=== PATIENT | male | born 1955 | race Caucasian/White ===

== ENCOUNTER 2021-02-06 16:08 | Inpatient (IN) | payer MEDICARE ==
[~2021-02-06] VITALS: Ht 182.9 cm; Wt 97.1 kg
[2021-02-06] VITALS (9 sets, daily range): BP systolic 75–97; BP diastolic 40–59
[~2021-02-06 16:08] MED LIST: ACET325T9 PO; ALLO100T PO; ATEN50TA PO; CETI10TA16 PO; CLOP75TA PO; DIVA-53 PO; DOCU100C28 PO; DORZ10DR21 EACHEYE; FLUO10CA13 PO; FURO20TA3 PO; FUROSEMIDE; IBUP400T99 PO; IPRA3AMP29 NEB; LATA7.5D OP; LEVO100T5 PO; MAGN400O7 PO; METO2.5T PO; NYST15CR TP; OLAN10TA69 PO; PALI234D IM; POLY17PO29 PO; POTA-121 PO; POTA10TA12 PO; SIMV20TA18 PO; SPIR25TA5 PO; [UNRECOGNIZED DRUG - CODE] MC; [UNRECOGNIZED DRUG - OTHER] PO; cholecalciferol PO; zinc PO
[2021-02-06] MEDS ORDERED: IV NORMAL SALINE 500ML BAG 500 ML IV ONE (16:15)
--- NOTE | 2021-02-06 16:16 | ED.ADGEN ---
Past Medical History Past Medical History: CHF, COPD, Depression, Hypothyroid, Schizophrenia Additional Past Medical Histor: COVID, LEFT LOWER LEG ULCER Past Surgical History: No Surgical History Smoking Status: Unknown if ever smoked Alcohol Use: Occasionally General Adult HPI: HPI: Patient is a 65 year old male brought in by nursing facility via EMS for altered mental status. About 6 hours prior to arrival staff told EMS that they noticed slurred speech and were going to "monitor him". Patient stated that he had sustained a little more confused starting yesterday. No other symptoms, denies any pain. Has a history of CHF and COPD. Review of Systems: Review of Systems: All other systems within normal limits except for as noted in the HPI Current Medications: Current Medications Medications (Trade) Dose Ordered Sig/Dread Start Time Stop Time Status Last Admin Dose Admin Sodium Chloride 1,000 ml @ 1,000 mls/hr 1X ONCE 02/06/21 17:15 02/06/21 18:14 DC 02/06/21 17:10 1,000 MLS/HR Allergies: Allergies: Allergies Coded Allergies Type Severity Reaction Last Updated Verified animal dander Allergy Intermediate 04/12/20 Yes haloperidol Allergy Intermediate 04/12/20 Yes Physical Exam: PE: Constitutional: Well developed, well nourished, no acute distress, non-toxic appearance. [] HENT: Normocephalic, atraumatic, bilateral external ears normal, nose normal. [] Eyes: PERRLA, conjunctiva normal, no discharge. [] Neck: No rigidity, supple, no stridor. [] Cardiovascular: Regular rate and rhythm, brisk cap refill [] Lungs & Thorax: Non labored symmetric respirations, no tachypnea or respiratory distress [] Abdomen: Soft, soft but mild Skin: Warm, dry, no erythema, no rash. [] Back: Unremarkable Extremities: No deformities, range of motion grossly intact, no lower extremity edema [] Neurologic: Alert and in response to questions but with family per slurred speech, no focal deficits noted. [] Psychologic: Affect normal, judgement normal, mood normal. [] Current Patient Data: Labs: Laboratory Tests Test 02/06/21 16:27 02/06/21 16:40 02/06/21 17:02 White Blood Count 8.9 x10^3/uL (4.0-11.0) Red Blood Count 3.55 x10^6/uL (4.30-5.70) L Hemoglobin 11.9 g/dL (13.0-17.5) L Hematocrit 35.5 % (39.0-53.0) L Mean Corpuscular Volume 100 fL (79-100) Mean Corpuscular Hemoglobin 34 pg (25-35) Mean Corpuscular Hemoglobin Concent 34 g/dL (31-37) Red Cell Distribution Width 14.6 % (11.5-14.5) H Platelet Count 220 x10^3/uL (140-400) Neutrophils (%) (Auto) 75 % (31-73) H Lymphocytes (%) (Auto) 11 % (24-48) L Monocytes (%) (Auto) 12 % (0-9) H Eosinophils (%) (Auto) 1 % (0-3) Basophils (%) (Auto) 0 % (0-3) Neutrophils # (Auto) 6.7 x10^3/uL (1.8-7.7) Lymphocytes # (Auto) 1.0 x10^3/uL (1.0-4.8) Monocytes # (Auto) 1.1 x10^3/uL (0.0-1.1) Eosinophils # (Auto) 0.1 x10^3/uL (0.0-0.7) Basophils # (Auto) 0.0 x10^3/uL (0.0-0.2) Sodium Level 138 mmol/L (136-145) Potassium Level 3.9 mmol/L (3.5-5.1) Chloride Level 95 mmol/L (98-107) L Carbon Dioxide Level 37 mmol/L (21-32) H Anion Gap 6 (6-14) Blood Urea Nitrogen 39 mg/dL (8-26) H Creatinine 2.5 mg/dL (0.7-1.3) H Estimated GFR (Cockcroft-Gault) 26.1 BUN/Creatinine Ratio 16 (6-20) Glucose Level 121 mg/dL (70-99) H Lactic Acid Level 2.8 mmol/L (0.4-2.0) H Calcium Level 9.3 mg/dL (8.5-10.1) Phosphorus Level 5.2 mg/dL (2.6-4.7) H Magnesium Level 1.7 mg/dL (1.8-2.4) L Total Bilirubin 0.3 mg/dL (0.2-1.0) Aspartate Amino Transferase (AST) 18 U/L (15-37) Alanine Aminotransferase (ALT) 18 U/L (16-63) Alkaline Phosphatase 63 U/L (46-116) Troponin I Quantitative < 0.017 ng/mL (0.000-0.055) EG-Ekf-D-Type Natriuretic Peptide 170 pg/mL (0-124) H Total Protein 7.0 g/dL (6.4-8.2) Albumin 2.9 g/dL (3.4-5.0) L Albumin/Globulin Ratio 0.7 (1.0-1.7) L SARS-CoV-2 Antigen (Rapid) Negative (NEGATIVE) Urine Collection Type Unknown Urine Color Yellow Urine Clarity Clear Urine pH 6.5 (<5.0-8.0) Urine Specific Man 1.010 (1.000-1.030) Urine Protein Negative mg/dL (NEG-TRACE) Urine Glucose (UA) Negative mg/dL (NEG) Urine Ketones (Stick) Negative mg/dL (NEG) Urine Blood Trace (NEG) Urine Nitrite Negative (NEG) Urine Bilirubin Negative (NEG) Urine Urobilinogen Dipstick 1.0 mg/dL (0.2 mg/dL) Urine Leukocyte Esterase Negative (NEG) Urine RBC 3-5 /HPF (0-2) Urine WBC 5-10 /HPF (0-4) Urine Squamous Epithelial Cells Few /LPF Urine Amorphous Sediment Present /HPF Urine Bacteria Few /HPF (0-FEW) Urine Mucus Slight /LPF Laboratory Tests 02/06/21 16:27 Laboratory Tests 02/06/21 16:27 Vital Signs: Vital Signs Date Time Temp Pulse Resp B/P (MAP) Pulse Ox O2 Delivery O2 Flow Rate FiO2 02/06/21 17:17 75 81/50 (60) 96 Nasal Cannula 2.0 02/06/21 16:08 97.5 24 97.5 EKG: EKG: Sinus rhythm, heart rate 70 bpm, no ST elevation or depression, no ectopy [] Heart Score: C/O Chest Pain: N/A HEART Score for Chest Pain: HEART Score for Chest Pain Response (Comments) Value History Slighlty/Non-Suspicious 0 ECG Normal 0 Age >45 - < 65 1 Risk Factors 1 or 2 Risk Factors 1 Troponin < Normal Limit 0 Total 2 Risk Factors: Risk Factors: DM, Current or recent (<one month) smoker, HTN, HLP, family history of CAD, obesity. Risk Scores: Score 0 - 3: 2.5% MACE over next 6 weeks - Discharge Home Score 4 - 6: 20.3% MACE over next 6 weeks - Admit for Clinical Observation Score 7 - 10: 72.7% MACE over next 6 weeks - Early Invasive Strategies Radiology/Procedures: Radiology/Procedures: [facility] [address] [place] [address] IMAGING REPORT Signed PATIENT: KAMRON CRAFT ACCOUNT: [id number] : 1955 LOCATION: ER AGE: 65 SEX: M EXAM STATUS: PRE ER ORD. PHYSICIAN: PEDRO STEVE MD REASON: ams, abd distention PROCEDURE: ACUTE ABDOMEN SERIES Exam: Acute abdominal series INDICATION: Altered mental status, distention TECHNIQUE: Frontal view of chest with upright and supine views of the abdomen Comparisons: None FINDINGS: The cardiomediastinal silhouette and pulmonary vessels are within normal limits. The lung and pleural spaces are clear. Air and stool are noted throughout the colon to level the rectum in a nonobstructive bowel gas pattern. Postoperative changes of the left hip are noted. No suspicious masses or calcifications. IMPRESSION: 1. No acute cardiopulmonary process. 2. Nonobstructive bowel gas pattern. Electronically signed by: Latasha Rodriges MD (02/06/2021 4:54 PM) [facility] DICTATED and SIGNED BY: LATASHA RODRIGES MD DATE: 02/06/21 [id number] [] Course & Med Decision Making: Course & Med Decision Making Pertinent Labs and Imaging studies reviewed. (See chart for details) Patient initially hypotensive but answering questions. Pressure increase in Trendelenburg position, given multiple fluid boluses with improvement in blood pressure. Patient also had improvement in mentation and alertness with the fluid boluses. Admitted to ICU. Pressors held due to patient's poor perfusion and volume status unlikely as the cause of his increase in his BUN and creatinine. We will resuscitate with fluids. Admitted to hospitalist, Dr Iniguez. Total critical care time: 60 The time involved in the performance of separately reportable/billable procedures was not counted toward critical care time. Due to a high probability of clinically significant, life-threatening deterioration the patient required a high level of care to intervene emergently and I personally spent this critical time directly and personally managing the patient. The critical care time included obtaining a history, examination of the patient, assessment of vital signs, ordering and review of studies, arranging urgent treatment with development of a management plan, evaluation of patient's response to treatment, frequent reassessment, and discussions with other providers and/or family members. [] Dragon Disclaimer: Dragon Disclaimer: This electronic medical record was generated, in whole or in part, using a voice recognition dictation system. Departure Departure Impression: Primary Impression: Altered mental state Additional Impressions: Hypotension TEODORO (acute kidney injury) Disposition: 09 ADMITTED INPATIENT Admitting Physician: ADAMARIS Condition: CRITICAL Referrals: SADI CARTWRIGHT MD (PCP) Problem Qualifiers PEDRO STEVE MD Feb 06, 2021 16:16
[2021-02-06 16:38] LABS: BASO % 0 % (0-3); EOS # 0.1 x10^3/uL (0.0-0.7); EOS % 1 % (0-3); HEMATOCRIT 35.5 % (39.0-53.0); HEMOGLOBIN 11.9 g/dL (13.0-17.5); LYMPH % 11 % (24-48); MEAN CORPUSCULAR HEMOGLOBIN 34 pg (25-35); MEAN CORPUSCULAR HGB CONC 34 g/dL (31-37); MEAN CORPUSCULAR VOLUME 100 fL (79-100); MONO # 1.1 x10^3/uL (0.0-1.1); MONO % 12 % (0-9); NEUT # 6.7 x10^3/uL (1.8-7.7); NEUT % 75 % (31-73); PLATELET COUNT 220 x10^3/uL (140-400); RED BLOOD COUNT 3.55 x10^6/uL (4.30-5.70); RED CELL DISTRIBUTION WIDTH 14.6 % (11.5-14.5); WHITE BLOOD COUNT 8.9 x10^3/uL (4.0-11.0)
--- NOTE | 2021-02-06 16:56 | RAD ---
Exam: Acute abdominal series INDICATION: Altered mental status, distention TECHNIQUE: Frontal view of chest with upright and supine views of the abdomen Comparisons: None FINDINGS: The cardiomediastinal silhouette and pulmonary vessels are within normal limits. The lung and pleural spaces are clear. Air and stool are noted throughout the colon to level the rectum in a nonobstructive bowel gas patter n. Postoperative changes of the left hip are noted. No suspicious masses or calcifications. IMPRESSION: 1. No acute cardiopulmonary process. 2. Nonobstructive bowel gas pattern. Electronically signed by: Latasha Alejandre MD (02/06/2021 4:54 PM) KALYN
[2021-02-06 16:57] LABS: CALCIUM 9.3 mg/dL (8.5-10.1); CREATININE 2.5 mg/dL (0.7-1.3); GFR 26.1; POTASSIUM 3.9 mmol/L (3.5-5.1)
[2021-02-06 17:11] LABS: ALBUMIN 2.9 g/dL (3.4-5.0); ALBUMIN/GLOBULIN RATIO 0.7 (1.0-1.7); MAGNESIUM 1.7 mg/dL (1.8-2.4); PHOSPHORUS 5.2 mg/dL (2.6-4.7); TOTAL BILIRUBIN 0.3 mg/dL (0.2-1.0)
[2021-02-06] MEDS ORDERED: IV NORMAL SALINE 1000ML BAG 1,000 ML IV ONE ×3 (17:15→18:00)
[2021-02-06 17:27] LABS: BILIRUBIN,URINE NEGATIVE (NEG); CLARITY,URINE CLEAR; COLOR,URINE YELLOW; NITRITE,URINE NEGATIVE (NEG); PH,URINE 6.5 (<5.0-8.0); PROTEIN,URINE NEGATIVE (NEG-TRACE)
[2021-02-06] MEDS ORDERED: VANCOMYCIN 2 GM in IV NORMAL SALINE 500ML BAG 500 ML IV ONE (17:30)
--- NOTE | 2021-02-06 17:35 | EKG ---
[facility] [address] [place] [address] Test Date: 2021-02-06 Test Time: 16:12:18 Pat Name: KAMRON CRAFT Department: Room: Gender: M Category Planner: : 1955 Requested By: PEDRO STEVE Order Number: [id number] Reading MD: Arsalan Sprague Measurements Intervals [place] Rate: 73 P: 45 DC: 162 QRS: 26 QRSD: 76 T: 41 QT: 400 QTc: 444 Interpretive Statements SINUS RHYTHM Electronically Signed On 02-12-2021 13:03:23 CDT by Arsalan Sprague
[2021-02-06 17:52] LABS: AMORPHOUS SEDIMENT,UR PRESENT /HPF; BACTERIA,URINE FEW /HPF (0-FEW)
[2021-02-06] MEDS ORDERED: CLINDAMYCIN 600MG PREMIX 50 ML IV ONE (18:00)
[2021-02-06 18:05] LABS: FECAL OB PT POSITIVE (NEG)
[2021-02-06] MEDS ORDERED: ONDANSETRON PF 4 MG/2 ML VIAL. IVP PRN (18:15)
[2021-02-06] MEDS: IV NORMAL SALINE 1000ML BAG 1,000 ML IV SCH ×2 (18:15→21:54)
[2021-02-06] MEDS ORDERED: ACETAMINOPHEN 325 MG TABLET. PO PRN (18:15)
[2021-02-06] MEDS ORDERED: fentaNYL PF VIAL 100 MCG/2 ML VIAL IVP PRN (18:15)
[2021-02-06] MEDS: NOREPINEPHRINE VIAL 8 MG in IV DEXTROSE 5% 250 ML IV PRN (19:00)
--- NOTE | 2021-02-06 19:13 | HP ---
ADMIT DATE: 02/06/2021 CHIEF COMPLAINT: Mental status change. HISTORY OF PRESENT ILLNESS: The patient is a pleasant 65-year-old male with multiple comorbidities including CHF and COPD and schizophrenia. He presents to the ER via ambulance with shortness of breath and mental status change. EMS thought they noticed some slurred speech as well. Apparently, this all started yesterday. While in the ER, we have noticed that his BUN and creatinine are high at 39 and 2.5. He is also very hypotensive with a blood pressure of 58/30. He apparently had some blood in his stool. He is guaiac positive. I discussed the case with the ER physician. We are going to admit the patient for further evaluation and treatment. PAST MEDICAL HISTORY: CHF, COPD, depression, hypothyroidism, schizophrenia, recent COVID-19, left lower leg ulcer, chronic cellulitis of both lower extremities. ALLERGIES: ANIMAL DANDER AND HALDOL. FAMILY HISTORY: Diabetes. SOCIAL HISTORY: He does not drink, smoke or take drugs. MEDICATIONS: Reviewed, please refer to the MRAD. REVIEW OF SYSTEMS: Unable to obtain. He is too obtunded. PHYSICAL EXAMINATION: VITALS: Within normal limits and are stable. GENERAL: He is obtunded. HEENT: Normal cephalic atraumatic, external auditory canals are patent. EYES: Extraocular muscles are intact, pupils are equally round and reactive to light and accommodation. MUSCULOSKELETAL: Well developed, well nourished, good range of motion. ENDOCRINE: No thyromegaly was palpated. LYMPHATICS: No cervical chain or axillary nodes were noted. HEMATOPOIETIC: No bruising. NECK: Supple, no JVD, no thyromegaly was noted. LUNGS: Clear to auscultation in all lung melissa without rhonchi or wheezing. HEART: RRR, S1, S2 present. Peripheral pulses intact, no obvious murmurs were noted. ABDOMEN: Soft, nontender. Positive bowel sounds no organomegaly, normal bowel sounds. EXTREMITIES: Without any cyanosis, clubbing, or edema. Pedal pulses intact, Homans sign is negative. NEUROLOGIC: He is obtunded. PSYCHIATRIC: He is obtunded. SKIN: No ulcerations or rashes, good skin turgor, no jaundice. VASCULAR: Good capillary refill, neurovascular bundle appears to be intact. LABORATORY DATA: Stool occult blood was positive. Electrolytes: Sodium 138, potassium 3.9, chloride 95, bicarbonate 37, BUN 39, creatinine 2.5, glucose 121. White count 8.9, hemoglobin 11.9, platelets 220. KUB shows no acute disease other than a nonobstructive bowel gas pattern. Lactic acid was 2.8. ASSESSMENT AND PLAN: Mental status change, severe dehydration, renal failure, anemia, lactic acidosis and guaiac positive stool. The patient has been admitted. We will consult GI regarding the guaiac positive stool. Suspect he might be septic. We will try aggressive IV fluids. We currently have him on saline at 100 mL an hour. Consult Nephrology. Cardiac monitoring. We may need to start a norepinephrine drip if his pressure does not respond very soon. IV clindamycin and IV vancomycin. Home meds when possible. DVT prophylaxis. Full code. PROGNOSIS: Guarded. CLARA DR: Neva TID: [id number]
[2021-02-07] VITALS (24 sets, daily range): BP systolic 85–113; BP diastolic 44–69
[2021-02-07] MEDS: NOREPINEPHRINE VIAL 8 MG in IV DEXTROSE 5% 250 ML IV PRN (05:48)
[2021-02-07] MEDS: IV NORMAL SALINE 1000ML BAG 1,000 ML IV SCH (05:52)
[2021-02-07 08:20] LABS: BASO % 0 % (0-3); EOS # 0.1 x10^3/uL (0.0-0.7); EOS % 2 % (0-3); HEMATOCRIT 32.7 % (39.0-53.0); HEMOGLOBIN 11.1 g/dL (13.0-17.5); LYMPH # 1.4 x10^3/uL (1.0-4.8); LYMPH % 20 % (24-48); MEAN CORPUSCULAR HEMOGLOBIN 34 pg (25-35); MEAN CORPUSCULAR HGB CONC 34 g/dL (31-37); MEAN CORPUSCULAR VOLUME 101 fL (79-100); MONO % 14 % (0-9); NEUT # 4.5 x10^3/uL (1.8-7.7); NEUT % 64 % (31-73); PLATELET COUNT 172 x10^3/uL (140-400); RED BLOOD COUNT 3.25 x10^6/uL (4.30-5.70); RED CELL DISTRIBUTION WIDTH 14.6 % (11.5-14.5); WHITE BLOOD COUNT 7.1 x10^3/uL (4.0-11.0)
[2021-02-07 08:33] LABS: ALBUMIN 2.2 g/dL (3.4-5.0); ALBUMIN/GLOBULIN RATIO 0.6 (1.0-1.7); CALCIUM 8.4 mg/dL (8.5-10.1); CREATININE 1.8 mg/dL (0.7-1.3); GFR 38.2; POTASSIUM 3.2 mmol/L (3.5-5.1); TOTAL BILIRUBIN 0.2 mg/dL (0.2-1.0); TOTAL PROTEIN 5.8 g/dL (6.4-8.2)
--- NOTE | 2021-02-07 10:14 | PDOC ---
[employer] PROGRESS NOTE Date of Service DOS: DATE: 02/07/21 TIME: 10:14 Chief Complaint Chief Complaint Mental status change, severe dehydration, renal failure, Severe encephalopathy anemia, lactic acidosis and guaiac positive stool. CHF, COPD, depression, hypothyroidism, schizophrenia, recent COVID-19, left lower leg ulcer, chronic cellulitis of both lower extremities. History of Present Illness History of Present Illness 02/07/2021 Patient seen and examined in the ICU He remains very encephalopathic Chart reviewed Discussed with RN Vitals/I&O Vitals/I&O: Vital Signs Date Time Temp Pulse Resp B/P (MAP) Pulse Ox O2 Delivery O2 Flow Rate FiO2 02/07/21 06:00 86 14 100/47 91 Room Air 02/07/21 04:00 98.6 98.6 02/07/21 03:56 2.0 I & O 02/06/21 02/06/21 02/07/21 15:00 23:00 07:00 Intake Total 2550 ml 2160 ml Output Total 225 ml 570 ml Balance 2325 ml 1590 ml Physical Exam Lungs: Clear Labs Labs: Laboratory Tests Test 02/06/21 16:27 02/06/21 16:40 02/06/21 17:02 02/06/21 17:51 White Blood Count 8.9 x10^3/uL (4.0-11.0) Red Blood Count 3.55 x10^6/uL (4.30-5.70) Hemoglobin 11.9 g/dL (13.0-17.5) Hematocrit 35.5 % (39.0-53.0) Mean Corpuscular Volume 100 fL (79-100) Mean Corpuscular Hemoglobin 34 pg (25-35) Mean Corpuscular Hemoglobin Concent 34 g/dL (31-37) Red Cell Distribution Width 14.6 % (11.5-14.5) Platelet Count 220 x10^3/uL (140-400) Neutrophils (%) (Auto) 75 % (31-73) Lymphocytes (%) (Auto) 11 % (24-48) Monocytes (%) (Auto) 12 % (0-9) Eosinophils (%) (Auto) 1 % (0-3) Basophils (%) (Auto) 0 % (0-3) Neutrophils # (Auto) 6.7 x10^3/uL (1.8-7.7) Lymphocytes # (Auto) 1.0 x10^3/uL (1.0-4.8) Monocytes # (Auto) 1.1 x10^3/uL (0.0-1.1) Eosinophils # (Auto) 0.1 x10^3/uL (0.0-0.7) Basophils # (Auto) 0.0 x10^3/uL (0.0-0.2) Sodium Level 138 mmol/L (136-145) Potassium Level 3.9 mmol/L (3.5-5.1) Chloride Level 95 mmol/L (98-107) Carbon Dioxide Level 37 mmol/L (21-32) Anion Gap 6 (6-14) Blood Urea Nitrogen 39 mg/dL (8-26) Creatinine 2.5 mg/dL (0.7-1.3) Estimated GFR (Cockcroft-Gault) 26.1 BUN/Creatinine Ratio 16 (6-20) Glucose Level 121 mg/dL (70-99) Lactic Acid Level 2.8 mmol/L (0.4-2.0) Calcium Level 9.3 mg/dL (8.5-10.1) Phosphorus Level 5.2 mg/dL (2.6-4.7) Magnesium Level 1.7 mg/dL (1.8-2.4) Total Bilirubin 0.3 mg/dL (0.2-1.0) Aspartate Amino Transf (AST/SGOT) 18 U/L (15-37) Alanine Aminotransferase (ALT/SGPT) 18 U/L (16-63) Alkaline Phosphatase 63 U/L (46-116) Troponin I Quantitative < 0.017 ng/mL (0.000-0.055) KB-Jbz-N-Type Natriuretic Peptide 170 pg/mL (0-124) Total Protein 7.0 g/dL (6.4-8.2) Albumin 2.9 g/dL (3.4-5.0) Albumin/Globulin Ratio 0.7 (1.0-1.7) SARS-CoV-2 RNA (CHARLES) Invalid (Negative) SARS-CoV-2 Antigen (Rapid) Negative (NEGATIVE) Urine Collection Type Unknown Urine Color Yellow Urine Clarity Clear Urine pH 6.5 (<5.0-8.0) Urine Specific [place] 1.010 (1.000-1.030) Urine Protein Negative mg/dL (NEG-TRACE) Urine Glucose (UA) Negative mg/dL (NEG) Urine Ketones (Stick) Negative mg/dL (NEG) Urine Blood Trace (NEG) Urine Nitrite Negative (NEG) Urine Bilirubin Negative (NEG) Urine Urobilinogen Dipstick 1.0 mg/dL (0.2 mg/dL) Urine Leukocyte Esterase Negative (NEG) Urine RBC 3-5 /HPF (0-2) Urine WBC 5-10 /HPF (0-4) Urine Squamous Epithelial Cells Few /LPF Urine Amorphous Sediment Present /HPF Urine Bacteria Few /HPF (0-FEW) Urine Mucus Slight /LPF Stool Occult Blood Positive (NEG) Test 02/06/21 21:15 02/07/21 08:00 Lactic Acid Level 2.8 mmol/L (0.4-2.0) Troponin I Quantitative 0.027 ng/mL (0.000-0.055) White Blood Count 7.1 x10^3/uL (4.0-11.0) Red Blood Count 3.25 x10^6/uL (4.30-5.70) Hemoglobin 11.1 g/dL (13.0-17.5) Hematocrit 32.7 % (39.0-53.0) Mean Corpuscular Volume 101 fL (79-100) Mean Corpuscular Hemoglobin 34 pg (25-35) Mean Corpuscular Hemoglobin Concent 34 g/dL (31-37) Red Cell Distribution Width 14.6 % (11.5-14.5) Platelet Count 172 x10^3/uL (140-400) Neutrophils (%) (Auto) 64 % (31-73) Lymphocytes (%) (Auto) 20 % (24-48) Monocytes (%) (Auto) 14 % (0-9) Eosinophils (%) (Auto) 2 % (0-3) Basophils (%) (Auto) 0 % (0-3) Neutrophils # (Auto) 4.5 x10^3/uL (1.8-7.7) Lymphocytes # (Auto) 1.4 x10^3/uL (1.0-4.8) Monocytes # (Auto) 1.0 x10^3/uL (0.0-1.1) Eosinophils # (Auto) 0.1 x10^3/uL (0.0-0.7) Basophils # (Auto) 0.0 x10^3/uL (0.0-0.2) Sodium Level 142 mmol/L (136-145) Potassium Level 3.2 mmol/L (3.5-5.1) Chloride Level 106 mmol/L (98-107) Carbon Dioxide Level 31 mmol/L (21-32) Anion Gap 5 (6-14) Blood Urea Nitrogen 33 mg/dL (8-26) Creatinine 1.8 mg/dL (0.7-1.3) Estimated GFR (Cockcroft-Gault) 38.2 BUN/Creatinine Ratio 18 (6-20) Glucose Level 91 mg/dL (70-99) Calcium Level 8.4 mg/dL (8.5-10.1) Total Bilirubin 0.2 mg/dL (0.2-1.0) Aspartate Amino Transf (AST/SGOT) 15 U/L (15-37) Alanine Aminotransferase (ALT/SGPT) 14 U/L (16-63) Alkaline Phosphatase 56 U/L (46-116) Total Protein 5.8 g/dL (6.4-8.2) Albumin 2.2 g/dL (3.4-5.0) Albumin/Globulin Ratio 0.6 (1.0-1.7) Assessment and Plan Assessmemt and Plan Problems Medical Problems: (1) Acute kidney injury Status: Acute (2) TEODORO (acute kidney injury) Status: Acute (3) Altered mental state Status: Acute (4) Hypotension Status: Acute Mental status change, severe dehydration, renal failure, Severe encephalopathy anemia, lactic acidosis and guaiac positive stool. CHF, COPD, depression, hypothyroidism, schizophrenia, recent COVID-19, left lower leg ulcer, chronic cellulitis of both lower extremities. PUI Plan Await subspecialist input IV fluids Trying to wean off the Levophed Await repeat Covid testing Trend labs Encourage p.o. intake once he is more alert Await GI, infectious disease and nephrology input IV antibiotics if infectious disease agrees DVT prophylaxis Home meds when possible Full code Prognosis guarded Comment Review of Relevant I have reviewed the following items merlene (where applicable) has been applied. Medications: Current Medications Medications (Trade) Dose Ordered Sig/Dread Route PRN Reason Start Time Stop Time Status Last Admin Dose Admin Sodium Chloride 500 ml @ 500 mls/hr 1X ONCE IV 02/06/21 16:15 02/06/21 17:14 DC 02/06/21 16:15 Sodium Chloride 1,000 ml @ 1,000 mls/hr 1X ONCE IV 02/06/21 17:15 02/06/21 18:14 DC 02/06/21 17:10 Sodium Chloride 1,000 ml @ 1,000 mls/hr 1X ONCE IV 02/06/21 17:30 02/06/21 18:29 DC 02/06/21 17:41 Clindamycin Phosphate 50 ml @ 100 mls/hr 1X ONCE IV 02/06/21 18:00 02/06/21 18:29 DC 02/06/21 17:57 Sodium Chloride 1,000 ml @ 1,000 mls/hr 1X ONCE IV 02/06/21 18:00 02/06/21 18:59 DC 02/06/21 18:00 Sodium Chloride 1,000 ml @ 125 mls/hr Q8H IV 02/06/21 18:15 02/07/21 18:14 02/07/21 05:52 Norepinephrine Bitartrate 8 mg/ Dextrose 258 ml @ 17.609 mls/ hr CONT PRN IV PER PROTOCOL 02/06/21 18:30 02/07/21 05:48 Justifications for Admission Other Justification ELIZABETH AVILES III DO Feb 07, 2021 10:14
[2021-02-07] MEDS ORDERED: POLYETHYLENE GLYCOL 3350 17 GM PACKET. PO PRN (10:45)
[2021-02-07] MEDS ORDERED: COAL TAR MC SCH (10:45)
[2021-02-07] MEDS ORDERED: MAGNESIUM HYDROXIDE 2,400 MG/30 ML ORAL.SUSP. PO PRN (10:45)
[2021-02-07] MEDS ORDERED: NYSTATIN 100,000 UNIT/GM TOPICAL CREAM 15GM TUBE. TP PRN (10:45)
[2021-02-07] MEDS ORDERED: ALBUTEROL SULFATE 2.5 MG/3 ML NEBU. NEB PRN (11:00)
--- NOTE | 2021-02-07 11:49 | PDOC2 ---
GI CONSULT Date of Service: DATE: 02/07/21 TIME: 11:38 Reason For Consult: Heme positive stool. HPI: HPI: 65 y/o male admitted with hypotension and AMS; cause of this a bit unclear. During evaluation, had positive stool hemoccult. Did seen some blood with normal (but "orange") stool this morning; denies h/o hemorrhoids. No diarrhea or constipation. No melena, nausea or vomiting. Says had colonoscopy at the [facility] 5-6 years ago with polyps. Wt/appetite OK. GIFH negative. Denies heartburn, dysphagia, PUD, GB, liver or pancreatic history. No prior EGD. Smoker. No real alcohol use. C.diff ordered due to the orange stool. PMH: PMH: CHF, COPD, depression, hypothyroidism, schizophrenia, COVID 04/2020, LE ulcers. From [facility], left hip surgery, not mentioned what. No other apparent operations. Social History: Smoke: 1 pack per day ALCOHOL: none Drugs: None ROS: GEN: Denies fevers, chills, sweats HEENT: Denies blurred vision, sore throat CV: Denies chest pain RESP: Denies shortness of air, cough GI: Per HPI : Denies hematuria, dysuria ENDO: Denies weight changes NEURO: Denies confusion, dizziness MSK: Denies weakness, joint pain/swelling SKIN: Denies jaundice, pruritus Vitals: Vitals: Vital Signs Date Time Temp Pulse Resp B/P (MAP) Pulse Ox O2 Delivery O2 Flow Rate FiO2 02/07/21 06:00 86 14 100/47 91 Room Air 02/07/21 04:00 98.6 98.6 02/07/21 03:56 2.0 Labs: Labs: Laboratory Tests Test 02/06/21 16:27 02/06/21 16:40 02/06/21 17:02 02/06/21 17:51 White Blood Count 8.9 x10^3/uL (4.0-11.0) Red Blood Count 3.55 x10^6/uL (4.30-5.70) Hemoglobin 11.9 g/dL (13.0-17.5) Hematocrit 35.5 % (39.0-53.0) Mean Corpuscular Volume 100 fL (79-100) Mean Corpuscular Hemoglobin 34 pg (25-35) Mean Corpuscular Hemoglobin Concent 34 g/dL (31-37) Red Cell Distribution Width 14.6 % (11.5-14.5) Platelet Count 220 x10^3/uL (140-400) Neutrophils (%) (Auto) 75 % (31-73) Lymphocytes (%) (Auto) 11 % (24-48) Monocytes (%) (Auto) 12 % (0-9) Eosinophils (%) (Auto) 1 % (0-3) Basophils (%) (Auto) 0 % (0-3) Neutrophils # (Auto) 6.7 x10^3/uL (1.8-7.7) Lymphocytes # (Auto) 1.0 x10^3/uL (1.0-4.8) Monocytes # (Auto) 1.1 x10^3/uL (0.0-1.1) Eosinophils # (Auto) 0.1 x10^3/uL (0.0-0.7) Basophils # (Auto) 0.0 x10^3/uL (0.0-0.2) Sodium Level 138 mmol/L (136-145) Potassium Level 3.9 mmol/L (3.5-5.1) Chloride Level 95 mmol/L (98-107) Carbon Dioxide Level 37 mmol/L (21-32) Anion Gap 6 (6-14) Blood Urea Nitrogen 39 mg/dL (8-26) Creatinine 2.5 mg/dL (0.7-1.3) Estimated GFR (Cockcroft-Gault) 26.1 BUN/Creatinine Ratio 16 (6-20) Glucose Level 121 mg/dL (70-99) Lactic Acid Level 2.8 mmol/L (0.4-2.0) Calcium Level 9.3 mg/dL (8.5-10.1) Phosphorus Level 5.2 mg/dL (2.6-4.7) Magnesium Level 1.7 mg/dL (1.8-2.4) Total Bilirubin 0.3 mg/dL (0.2-1.0) Aspartate Amino Transf (AST/SGOT) 18 U/L (15-37) Alanine Aminotransferase (ALT/SGPT) 18 U/L (16-63) Alkaline Phosphatase 63 U/L (46-116) Troponin I Quantitative < 0.017 ng/mL (0.000-0.055) [id number]-Type Natriuretic Peptide 170 pg/mL (0-124) Total Protein 7.0 g/dL (6.4-8.2) Albumin 2.9 g/dL (3.4-5.0) Albumin/Globulin Ratio 0.7 (1.0-1.7) SARS-CoV-2 RNA (CHARLES) Invalid (Negative) SARS-CoV-2 Antigen (Rapid) Negative (NEGATIVE) Urine Collection Type Unknown Urine Color Yellow Urine Clarity Clear Urine pH 6.5 (<5.0-8.0) Urine Specific Harris 1.010 (1.000-1.030) Urine Protein Negative mg/dL (NEG-TRACE) Urine Glucose (UA) Negative mg/dL (NEG) Urine Ketones (Stick) Negative mg/dL (NEG) Urine Blood Trace (NEG) Urine Nitrite Negative (NEG) Urine Bilirubin Negative (NEG) Urine Urobilinogen Dipstick 1.0 mg/dL (0.2 mg/dL) Urine Leukocyte Esterase Negative (NEG) Urine RBC 3-5 /HPF (0-2) Urine WBC 5-10 /HPF (0-4) Urine Squamous Epithelial Cells Few /LPF Urine Amorphous Sediment Present /HPF Urine Bacteria Few /HPF (0-FEW) Urine Mucus Slight /LPF Stool Occult Blood Positive (NEG) Test 02/06/21 21:15 02/07/21 08:00 Lactic Acid Level 2.8 mmol/L (0.4-2.0) Troponin I Quantitative 0.027 ng/mL (0.000-0.055) White Blood Count 7.1 x10^3/uL (4.0-11.0) Red Blood Count 3.25 x10^6/uL (4.30-5.70) Hemoglobin 11.1 g/dL (13.0-17.5) Hematocrit 32.7 % (39.0-53.0) Mean Corpuscular Volume 101 fL (79-100) Mean Corpuscular Hemoglobin 34 pg (25-35) Mean Corpuscular Hemoglobin Concent 34 g/dL (31-37) Red Cell Distribution Width 14.6 % (11.5-14.5) Platelet Count 172 x10^3/uL (140-400) Neutrophils (%) (Auto) 64 % (31-73) Lymphocytes (%) (Auto) 20 % (24-48) Monocytes (%) (Auto) 14 % (0-9) Eosinophils (%) (Auto) 2 % (0-3) Basophils (%) (Auto) 0 % (0-3) Neutrophils # (Auto) 4.5 x10^3/uL (1.8-7.7) Lymphocytes # (Auto) 1.4 x10^3/uL (1.0-4.8) Monocytes # (Auto) 1.0 x10^3/uL (0.0-1.1) Eosinophils # (Auto) 0.1 x10^3/uL (0.0-0.7) Basophils # (Auto) 0.0 x10^3/uL (0.0-0.2) Sodium Level 142 mmol/L (136-145) Potassium Level 3.2 mmol/L (3.5-5.1) Chloride Level 106 mmol/L (98-107) Carbon Dioxide Level 31 mmol/L (21-32) Anion Gap 5 (6-14) Blood Urea Nitrogen 33 mg/dL (8-26) Creatinine 1.8 mg/dL (0.7-1.3) Estimated GFR (Cockcroft-Gault) 38.2 BUN/Creatinine Ratio 18 (6-20) Glucose Level 91 mg/dL (70-99) Calcium Level 8.4 mg/dL (8.5-10.1) Total Bilirubin 0.2 mg/dL (0.2-1.0) Aspartate Amino Transf (AST/SGOT) 15 U/L (15-37) Alanine Aminotransferase (ALT/SGPT) 14 U/L (16-63) Alkaline Phosphatase 56 U/L (46-116) Total Protein 5.8 g/dL (6.4-8.2) Albumin 2.2 g/dL (3.4-5.0) Albumin/Globulin Ratio 0.6 (1.0-1.7) Hemoglobin better than discharge value from 04/2020. Indices not suggestive of MOOK. Allergies: Coded Allergies: animal dander (Verified Allergy, Intermediate, 04/12/20) haloperidol (Verified Allergy, Intermediate, 04/12/20) Medications: Current Medications Medications (Trade) Dose Ordered Sig/Dread Route PRN Reason Start Time Stop Time Status Last Admin Dose Admin Sodium Chloride 500 ml @ 500 mls/hr 1X ONCE IV 02/06/21 16:15 02/06/21 17:14 DC 02/06/21 16:15 Sodium Chloride 1,000 ml @ 1,000 mls/hr 1X ONCE IV 02/06/21 17:15 02/06/21 18:14 DC 02/06/21 17:10 Sodium Chloride 1,000 ml @ 1,000 mls/hr 1X ONCE IV 02/06/21 17:30 02/06/21 18:29 DC 02/06/21 17:41 Clindamycin Phosphate 50 ml @ 100 mls/hr 1X ONCE IV 02/06/21 18:00 02/06/21 18:29 DC 02/06/21 17:57 Sodium Chloride 1,000 ml @ 1,000 mls/hr 1X ONCE IV 02/06/21 18:00 02/06/21 18:59 DC 02/06/21 18:00 Sodium Chloride 1,000 ml @ 125 mls/hr Q8H IV 02/06/21 18:15 02/07/21 18:14 02/07/21 05:52 Norepinephrine Bitartrate 8 mg/ Dextrose 258 ml @ 17.609 mls/ hr CONT PRN IV PER PROTOCOL 02/06/21 18:30 02/07/21 05:48 Imaging: Imaging: No apparent abdominal issues on AAS. PE: GEN: NAD HEENT: Atraumatic, PERRLA LUNGS: CTAB anteriorly HEART: RRR, no murmurs ABD: NABS, S/ND/NT, no masses EXTREMITY: No edema SKIN: No rashes, no jaundice NEURO/PSYCH: A & O 3, not a horrible historian A/P: A/P: IMP: Heme positive stool--non-specific and not necessarily indicator of meaningful pathology. Blood in stool. History suggests lower anal source such as hemorrhoids. H/o colon polyps; is roughly due for surveillance, but not emergent. Anemia, though better than in April. AMS, hypotension, cause unclear. REC: PPI prophylaxis. Anemia parameters. Monitor for any meaningful overt bleeding. Continue support, search for cause of presenting issues. Records from [facility]. OK to have clears from my standpoint. Other pending. BRUNILDA CHAPPELL MD Feb 07, 2021 11:49
[2021-02-07] MEDS ORDERED: POTASSIUM CHLORIDE 10 MEQ TABLET.ER. PO SCH (12:00)
[2021-02-07] MEDS: POLYETHYLENE GLYCOL 3350 17 GM PACKET. PO SCH (12:00)
--- NOTE | 2021-02-07 12:09 | CONS ---
DATE OF CONSULTATION: 02/07/2021 REFERRING PHYSICIAN: Vivian Iniguez DO REASON FOR CONSULTATION: Sepsis. HISTORY OF PRESENT ILLNESS: A 65-year-old male was brought to the ER from nursing facility by EMS for altered mental status. The patient had generalized weakness. The patient has history of CHF, COPD, history of schizophrenia, bilateral lower extremity chronic nonhealing wounds. Creatinine was 2.5. White count was 8.9. Lactate of 2.8. KUB showed no acute changes except for nonobstructive bowel gas pattern. Stool for occult blood was positive. The patient was given a dose of vancomycin. Currently, he is in ICU. ID consultation has been requested for antibiotic management. PAST MEDICAL HISTORY: CHF, COPD, hypothyroidism, schizophrenia, chronic bilateral lower extremity wounds, history of COVID in 04/2020. REVIEW OF SYSTEMS: Limited, says has loose bowel movement. ALLERGIES: ANIMAL DANDER AND HALOPERIDOL. CURRENT MEDICATIONS: 1 dose of vancomycin. No other antibiotics. Other medications reviewed in medication list. SOCIAL HISTORY: Positive for smoking. longterm resident. FAMILY HISTORY: Noncontributory. PHYSICAL EXAMINATION: VITAL SIGNS: Temperature 98.6, pulse 88, respiratory rate 14, blood pressure 100/47, oxygen saturation 97% on room air. GENERAL: Alert, awake male, answers a few questions, in no acute distress, on O2. HEENT: Normocephalic and atraumatic. Anicteric. Oral mucosa moist. Dentition poor. NECK: Supple, no JVD. LUNGS: Decreased breath sounds at the bases, otherwise no accessory muscle use. CARDIOVASCULAR: S1, S2. No murmurs. ABDOMEN: Soft, nontender, nondistended. Bowel sounds present. EXTREMITIES: Bilateral lower extremity hyperpigmentation, skin breakdown over both the lower extremities. Pictures reviewed as the patient did not allow me to take the dressing down. Does not appear infected. Yeast present. DERMATOLOGIC: Warm, dry, no generalized rash except for above. NEUROLOGIC: Sleepy, but arousable, moves all four extremities. PSYCHIATRIC: Appears calm. LABORATORY DATA: WBC 7.1, hemoglobin 11.1, hematocrit 32.7, platelets 172. Sodium 142, potassium 4.2, chloride 106, bicarbonate 31, BUN 33, creatinine 1.8, lactate 2.8. Albumin 2.2. Urine, 5-10 wbc's, leukocyte esterase negative. Stool occult blood positive. SARS COVID rapid negative. SARS-COVID RNA invalid. MICRO: None. IMAGING STUDIES: Acute abdominal series as per HPI. IMPRESSION: 1. Sepsis. 2. Mental status changes, likely from dehydration, improved. 3. Lactic acidosis source GI. 4. Fecal occult blood positive. 5. Diarrhea. 6. Severe dehydration, renal failure. 7. Anemia. 8. History of schizophrenia. 9. 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 10. History of smoking. 11. Acute kidney injury with chronic kidney disease. 12. Anemia. 13. Protein-calorie malnutrition. RECOMMENDATIONS: 1. Start micafungin.Add empiric Zosyn for now. 2. Check C diff PCR 3. Monitor labs and cultures. 4. Continue supportive care. 5. Continue local wound care as directed. Discussed with nursing staff. Thank you for allowing me to participate in this patient's care. If you have any questions, do not hesitate to contact me. SURJIT DR: Britt TID: [id number] ANA LUISA
[2021-02-07] MEDS: PANTOPRAZOLE 40 MG TABLET.DR. PO SCH (12:18)
[2021-02-07] MEDS: ZINC SULFATE 220 MG CAPSULE. PO SCH (12:18)
[2021-02-07] MEDS: metOLazone 2.5 MG TABLET PO SCH (12:18)
[2021-02-07] MEDS: LEVOTHYROXINE 100 MCG TABLET PO SCH (12:18)
[2021-02-07] MEDS: CHOLECALCIFEROL (VITAMIN D3) 1,000 UNIT TABLET PO SCH (12:18)
[2021-02-07] MEDS: POTASSIUM CHLORIDE 20 MEQ TABLET.ER. PO SCH ×2 (12:18→20:53)
[2021-02-07] MEDS: FLUoxetine HCL 10 MG CAPSULE PO SCH (12:18)
[2021-02-07] MEDS: MICAFUNGIN 100 MG in IV DEXTROSE 5% 100ML 100 ML IV SCH (12:19)
[2021-02-07] MEDS: PIPERACILLIN/TAZOBACTAM 3.375 GM in IV NORMAL SALINE 50ML 50 ML IV SCH ×3 (12:19→23:23)
[2021-02-07] MEDS: IBUPROFEN 400 MG TABLET. PO SCH ×3 (12:21→23:23)
--- NOTE | 2021-02-07 13:41 | PDOC2 ---
CONSULT Date of Consult Date of Consult DATE: 02/07/21 TIME: 13:40 History of Present Illness Reason for Visit: Pt is a 65-year-old CM was brought to the ER from nursing facility by EMS for altered mental status PMHx significant for CHF, COPD, history of schizophrenia, bilateral lower extremity chronic nonhealing wounds. No Reported N/V/D. No abdominal pain No acute concerns imer Nursing . Home med list shows Ibuprofen, Metolazone and Lasix-- all have been continued /listed in his current active med list this hospitalization per Dr. Iniguez Not sure about his baseline MS, he is talking about his wheel chair issues , also reports he has been wheel chair bound since 2019 ad would like to walk again Creatinine at presentation 2.5 Past Medical History Cardiovascular: CHF, HTN Pulmonary: COPD GI: Constipation Psych: Schizophrenia Endocrine: Hypothyroidism Past Surgical History Past Surgical History: No pertinent history Family History Family History: Hypertension Social History Social History [facility] resident 1 pack per day ALCOHOL: none Drugs: None Current Problem List Problem List Problems Medical Problems: (1) Acute kidney injury Status: Acute (2) TEODORO (acute kidney injury) Status: Acute (3) Altered mental state Status: Acute (4) Hypotension Status: Acute Current Medications Current Medications Current Medications Sodium Chloride 500 ml @ 500 mls/hr 1X ONCE IV Last administered on 02/06/21at 16:15; Start 02/06/21 at 16:15; Stop 02/06/21 at 17:14; Status DC Sodium Chloride 1,000 ml @ 1,000 mls/hr 1X ONCE IV Last administered on 02/06/21at 17:10; Start 02/06/21 at 17:15; Stop 02/06/21 at 18:14; Status DC Sodium Chloride 1,000 ml @ 1,000 mls/hr 1X ONCE IV Last administered on 02/06/21at 17:41; Start 02/06/21 at 17:30; Stop 02/06/21 at 18:29; Status DC Vancomycin HCl 2 gm/Sodium Chloride 500 ml @ 250 mls/hr 1X ONCE IV ; Start 02/06/21 at 17:30; Stop 02/06/21 at 17:31; Status DC Clindamycin Phosphate 50 ml @ 100 mls/hr 1X ONCE IV Last administered on 02/06/21at 17:57; Start 02/06/21 at 18:00; Stop 02/06/21 at 18:29; Status DC Sodium Chloride 1,000 ml @ 1,000 mls/hr 1X ONCE IV Last administered on at 18:00; Start 02/06/21 at 18:00; Stop 02/06/21 at 18:59; Status DC Ondansetron HCl (Zofran) 4 mg PRN Q8HRS PRN IVP NAUSEA/VOMITING; Start 02/06/21 at 18:15; Stop 02/07/21 at 18:14 Fentanyl Citrate (Fentanyl 2ml Vial) 50 mcg PRN Q1HR PRN IVP PAIN; Start 02/06/21 at 18:15; Stop 02/07/21 at 18:14 Sodium Chloride 1,000 ml @ 125 mls/hr Q8H IV Last administered on 02/07/21at 05:52; Start 02/06/21 at 18:15; Stop 02/07/21 at 18:14 Acetaminophen (Tylenol) 650 mg PRN Q4HRS PRN PO FEVER > 100.3'F; Start 02/06/21 at 18:15; Stop 02/07/21 at 18:14 Norepinephrine Bitartrate 8 mg/ Dextrose 258 ml @ 17.609 mls/ hr CONT PRN IV PER PROTOCOL Last administered on 02/07/21at 05:48; Start 02/06/21 at 18:30 Divalproex Sodium (Depakote) 1,500 mg HS PO ; Start 02/07/21 at 21:00 Docusate Sodium (Colace) 100 mg HS PO ; Start 02/07/21 at 21:00 Fluoxetine HCl (PROzac) 10 mg DAILY PO Last administered on 02/07/21at 12:18; Start 02/07/21 at 12:00 Ibuprofen (Motrin) 400 mg Q6HRS PO Last administered on 02/07/21at 12:21; Start 02/07/21 at 12:00 Albuterol Sulfate (Ventolin Neb Soln) 2.5 mg PRN Q6HRS PRN NEB low oxygen saturation; Start 02/07/21 at 11:00 Levothyroxine Sodium (Synthroid) 100 mcg DAILY06 PO Last administered on 02/07/21at 12:18; Start 02/07/21 at 12:00 Magnesium Hydroxide (Milk Of Magnesia) 2,400 mg PRN Q24HRS PRN PO CONSTIPATION; Start 02/07/21 at 10:45 Metolazone (Zaroxolyn) 2.5 mg DAILY PO Last administered on 02/07/21at 12:18; Start 02/07/21 at 12:00 Nystatin (Mycostatin) 1 elliott BID PRN TP redness/gaulding r/t candidias; Start 02/07/21 at 10:45 Polyethylene Glycol (miraLAX PACKET) 17 gm PRN Q12HR PRN PO CONSTIPATION; Start 02/07/21 at 10:45 Polyethylene Glycol (miraLAX PACKET) 17 gm DAILY PO ; Start 02/07/21 at 12:00 Potassium Chloride (Klor-Con) 10 meq DAILY PO ; Start 02/07/21 at 12:00; Status UNV Potassium Chloride (Klor-Con) 20 meq BID PO Last administered on 02/07/21at 12:18; Start 02/07/21 at 12:00 Non-Formulary Medication (Tucker Tar ) 100 gm TUE [facility] ; Start 02/07/21 at 10:45; Status UNV Olanzapine (ZyPREXA) 10 mg QHS PO ; Start 02/07/21 at 21:00 Non-Formulary Medication (Paliperidone Palmitate (Invega Sustenna)) 234 mg Q28D AYS IM ; Start 03/07/21 at 09:00; Status UNV Vitamin D (Vitamin D3) 2,000 unit DAILY PO Last administered on 02/07/21at 12:18; Start 02/07/21 at 12:00 Zinc Sulfate (Orazinc) 220 mg DAILY PO Last administered on 02/07/21at 12:18; Start 02/07/21 at 12:00 Piperacillin Sod/ Tazobactam Sod 3.375 gm/Sodium Chloride 50 ml @ 100 mls/hr Q6HRS IV Last administered on 02/07/21at 12:19; Start 02/07/21 at 12:30 Micafungin Sodium 100 mg/Dextrose 100 ml @ 100 mls/hr Q24H IV Last administered on 02/07/21at 12:19; Start 02/07/21 at 13:00 Pantoprazole Sodium (Protonix) 40 mg DAILYAC PO Last administered on 02/07/21at 12:18; Start 02/07/21 at 12:00 Active Scripts Active Reported [zinc] 250 Mg PO DAILY Klor-Con M20 (Potassium Chloride) 20 Meq Tab.er.prt 20 Meq PO BID Miralax (Polyethylene Glycol 3350) 17 Gm Powd.pack 1 Packet PO Q12HR PRN dissolve in water Miralax (Polyethylene Glycol 3350) 17 Gm Powd.pack 1 Pkt PO DAILY Nystatin 15 Gm Cream..g. 1 Elliott TP BID PRN Duoneb 0.5-3(2.5) Mg/3 Ml (Albuterol/Ipratropium) 3 Ml Ampul.neb 3 Ml NEB Q6HRS PRN Invega Sustenna (Paliperidone Palmitate) 234 Mg/1.5 Ml Disp.syrin 234 Mg IM [id number] Furosemide 20 Mg Tablet 3 Tab PO DAILY [cholecalciferol ] 2,000 Units PO DAILY Prozac (Fluoxetine Hcl) 10 Mg Capsule 1 Cap PO DAILY Klor-Con 10 (Potassium Chloride) 10 Meq Tablet.er 1 Tab PO DAILY 30 Days Olanzapine 10 Mg Tablet 1 Tab PO QHS Milk Of Magnesia (Magnesium Hydroxide) 400 Mg/5 Ml Oral.susp 400 Mg PO PRN Q24HRS PRN Metolazone 2.5 Mg Tablet 2.5 Mg PO DAILY Levothyroxine Sodium 100 Mcg Tablet 1 Tab PO DAILY Ibu (Ibuprofen) 400 Mg Tablet 1 Tab PO Q6HRS 5 Days NEEDED FOR PAIN Divalproex Sodium 500 Mg Tablet. 3 Tab PO HS Docusate Sodium 100 Mg Capsule 1 Cap PO HS 7 Days Tucker Tar 100 Gm Tar 100 Gm Tue SAT Allergies Allergies: Coded Allergies: animal dander (Verified Allergy, Intermediate, 04/12/20) haloperidol (Verified Allergy, Intermediate, 04/12/20) ROS Review of System As per HPI, rest of the ROS is negative Physical Exam Physical Exam GENERAL: no acute distress, HEENT: Normocephalic and atraumatic. Anicteric. Oral mucosa moist. On o2 by NC NECK: Supple, LUNGS: Decreased breath sounds at the bases, no accessory muscle use. CV: S1, S2. No murmurs. ABDOMEN: Soft, nontender, nondistended. Bowel sounds present. EXTREMITIES: Has dressing on both LE DERMATOLOGIC:no generalized rash NEUROLOGIC: Sleepy, but arousable, moves all four extremities. [place] in place Vital Signs Vital Signs Date Time Temp Pulse Resp B/P (MAP) Pulse Ox O2 Delivery O2 Flow Rate FiO2 02/07/21 08:00 Nasal Cannula 2.0 02/07/21 06:00 86 14 100/47 91 02/07/21 04:00 98.6 98.6 Assessment & Plan TEODORO - Vasomotor/Dehydration /? UTI , Non oliguric, Improving renal function with IVF. Supportive care, maintain hydration ,, strict I/O, Avoid Nephrotoxins (I buprofen listed in his current Med list per Dr. Iniguez) Sepsis/ Lactic acidosis.- ID consulted HypOtension- Recommned holding Antihypertensives and Diuretics- defer to Primary AMS POA- improved Anemia - Fecal occult blood positive.Per GI History of schizophrenia. 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 Labs Labs Laboratory Tests Test 02/06/21 16:27 02/06/21 16:40 02/06/21 17:02 02/06/21 17:51 White Blood Count 8.9 x10^3/uL (4.0-11.0) Red Blood Count 3.55 x10^6/uL (4.30-5.70) Hemoglobin 11.9 g/dL (13.0-17.5) Hematocrit 35.5 % (39.0-53.0) Mean Corpuscular Volume 100 fL (79-100) Mean Corpuscular Hemoglobin 34 pg (25-35) Mean Corpuscular Hemoglobin Concent 34 g/dL (31-37) Red Cell Distribution Width 14.6 % (11.5-14.5) Platelet Count 220 x10^3/uL (140-400) Neutrophils (%) (Auto) 75 % (31-73) Lymphocytes (%) (Auto) 11 % (24-48) Monocytes (%) (Auto) 12 % (0-9) Eosinophils (%) (Auto) 1 % (0-3) Basophils (%) (Auto) 0 % (0-3) Neutrophils # (Auto) 6.7 x10^3/uL (1.8-7.7) Lymphocytes # (Auto) 1.0 x10^3/uL (1.0-4.8) Monocytes # (Auto) 1.1 x10^3/uL (0.0-1.1) Eosinophils # (Auto) 0.1 x10^3/uL (0.0-0.7) Basophils # (Auto) 0.0 x10^3/uL (0.0-0.2) Sodium Level 138 mmol/L (136-145) Potassium Level 3.9 mmol/L (3.5-5.1) Chloride Level 95 mmol/L (98-107) Carbon Dioxide Level 37 mmol/L (21-32) Anion Gap 6 (6-14) Blood Urea Nitrogen 39 mg/dL (8-26) Creatinine 2.5 mg/dL (0.7-1.3) Estimated GFR (Cockcroft-Gault) 26.1 BUN/Creatinine Ratio 16 (6-20) Glucose Level 121 mg/dL (70-99) Lactic Acid Level 2.8 mmol/L (0.4-2.0) Calcium Level 9.3 mg/dL (8.5-10.1) Phosphorus Level 5.2 mg/dL (2.6-4.7) Magnesium Level 1.7 mg/dL (1.8-2.4) Total Bilirubin 0.3 mg/dL (0.2-1.0) Aspartate Amino Transf (AST/SGOT) 18 U/L (15-37) Alanine Aminotransferase (ALT/SGPT) 18 U/L (16-63) Alkaline Phosphatase 63 U/L (46-116) Troponin I Quantitative < 0.017 ng/mL (0.000-0.055) NL-Xbc-W-Type Natriuretic Peptide 170 pg/mL (0-124) Total Protein 7.0 g/dL (6.4-8.2) Albumin 2.9 g/dL (3.4-5.0) Albumin/Globulin Ratio 0.7 (1.0-1.7) Coronavirus (COVID-19)(PCR) Not detected (NOT DETECTD) SARS-CoV-2 RNA (CHARLES) Invalid (Negative) SARS-CoV-2 Antigen (Rapid) Negative (NEGATIVE) Urine Collection Type Unknown Urine Color Yellow Urine Clarity Clear Urine pH 6.5 (<5.0-8.0) Urine Specific [place] 1.010 (1.000-1.030) Urine Protein Negative mg/dL (NEG-TRACE) Urine Glucose (UA) Negative mg/dL (NEG) Urine Ketones (Stick) Negative mg/dL (NEG) Urine Blood Trace (NEG) Urine Nitrite Negative (NEG) Urine Bilirubin Negative (NEG) Urine Urobilinogen Dipstick 1.0 mg/dL (0.2 mg/dL) Urine Leukocyte Esterase Negative (NEG) Urine RBC 3-5 /HPF (0-2) Urine WBC 5-10 /HPF (0-4) Urine Squamous Epithelial Cells Few /LPF Urine Amorphous Sediment Present /HPF Urine Bacteria Few /HPF (0-FEW) Urine Mucus Slight /LPF Stool Occult Blood Positive (NEG) Test 02/06/21 21:15 02/07/21 08:00 Lactic Acid Level 2.8 mmol/L (0.4-2.0) Troponin I Quantitative 0.027 ng/mL (0.000-0.055) White Blood Count 7.1 x10^3/uL (4.0-11.0) Red Blood Count 3.25 x10^6/uL (4.30-5.70) Hemoglobin 11.1 g/dL (13.0-17.5) Hematocrit 32.7 % (39.0-53.0) Mean Corpuscular Volume 101 fL (79-100) Mean Corpuscular Hemoglobin 34 pg (25-35) Mean Corpuscular Hemoglobin Concent 34 g/dL (31-37) Red Cell Distribution Width 14.6 % (11.5-14.5) Platelet Count 172 x10^3/uL (140-400) Neutrophils (%) (Auto) 64 % (31-73) Lymphocytes (%) (Auto) 20 % (24-48) Monocytes (%) (Auto) 14 % (0-9) Eosinophils (%) (Auto) 2 % (0-3) Basophils (%) (Auto) 0 % (0-3) Neutrophils # (Auto) 4.5 x10^3/uL (1.8-7.7) Lymphocytes # (Auto) 1.4 x10^3/uL (1.0-4.8) Monocytes # (Auto) 1.0 x10^3/uL (0.0-1.1) Eosinophils # (Auto) 0.1 x10^3/uL (0.0-0.7) Basophils # (Auto) 0.0 x10^3/uL (0.0-0.2) Sodium Level 142 mmol/L (136-145) Potassium Level 3.2 mmol/L (3.5-5.1) Chloride Level 106 mmol/L (98-107) Carbon Dioxide Level 31 mmol/L (21-32) Anion Gap 5 (6-14) Blood Urea Nitrogen 33 mg/dL (8-26) Creatinine 1.8 mg/dL (0.7-1.3) Estimated GFR (Cockcroft-Gault) 38.2 BUN/Creatinine Ratio 18 (6-20) Glucose Level 91 mg/dL (70-99) Calcium Level 8.4 mg/dL (8.5-10.1) Total Bilirubin 0.2 mg/dL (0.2-1.0) Aspartate Amino Transf (AST/SGOT) 15 U/L (15-37) Alanine Aminotransferase (ALT/SGPT) 14 U/L (16-63) Alkaline Phosphatase 56 U/L (46-116) Total Protein 5.8 g/dL (6.4-8.2) Albumin 2.2 g/dL (3.4-5.0) Albumin/Globulin Ratio 0.6 (1.0-1.7) Laboratory Tests Test 02/06/21 16:27 02/06/21 16:40 02/06/21 17:02 02/06/21 17:51 White Blood Count 8.9 x10^3/uL (4.0-11.0) Red Blood Count 3.55 x10^6/uL (4.30-5.70) Hemoglobin 11.9 g/dL (13.0-17.5) Hematocrit 35.5 % (39.0-53.0) Mean Corpuscular Volume 100 fL (79-100) Mean Corpuscular Hemoglobin 34 pg (25-35) Mean Corpuscular Hemoglobin Concent 34 g/dL (31-37) Red Cell Distribution Width 14.6 % (11.5-14.5) Platelet Count 220 x10^3/uL (140-400) Neutrophils (%) (Auto) 75 % (31-73) Lymphocytes (%) (Auto) 11 % (24-48) Monocytes (%) (Auto) 12 % (0-9) Eosinophils (%) (Auto) 1 % (0-3) Basophils (%) (Auto) 0 % (0-3) Neutrophils # (Auto) 6.7 x10^3/uL (1.8-7.7) Lymphocytes # (Auto) 1.0 x10^3/uL (1.0-4.8) Monocytes # (Auto) 1.1 x10^3/uL (0.0-1.1) Eosinophils # (Auto) 0.1 x10^3/uL (0.0-0.7) Basophils # (Auto) 0.0 x10^3/uL (0.0-0.2) Sodium Level 138 mmol/L (136-145) Potassium Level 3.9 mmol/L (3.5-5.1) Chloride Level 95 mmol/L (98-107) Carbon Dioxide Level 37 mmol/L (21-32) Anion Gap 6 (6-14) Blood Urea Nitrogen 39 mg/dL (8-26) Creatinine 2.5 mg/dL (0.7-1.3) Estimated GFR (Cockcroft-Gault) 26.1 BUN/Creatinine Ratio 16 (6-20) Glucose Level 121 mg/dL (70-99) Lactic Acid Level 2.8 mmol/L (0.4-2.0) Calcium Level 9.3 mg/dL (8.5-10.1) Phosphorus Level 5.2 mg/dL (2.6-4.7) Magnesium Level 1.7 mg/dL (1.8-2.4) Total Bilirubin 0.3 mg/dL (0.2-1.0) Aspartate Amino Transf (AST/SGOT) 18 U/L (15-37) Alanine Aminotransferase (ALT/SGPT) 18 U/L (16-63) Alkaline Phosphatase 63 U/L (46-116) Troponin I Quantitative < 0.017 ng/mL (0.000-0.055) HX-Yhy-D-Type Natriuretic Peptide 170 pg/mL (0-124) Total Protein 7.0 g/dL (6.4-8.2) Albumin 2.9 g/dL (3.4-5.0) Albumin/Globulin Ratio 0.7 (1.0-1.7) Coronavirus (COVID-19)(PCR) Not detected (NOT DETECTD) SARS-CoV-2 RNA (CHARLES) Invalid (Negative) SARS-CoV-2 Antigen (Rapid) Negative (NEGATIVE) Urine Collection Type Unknown Urine Color Yellow Urine Clarity Clear Urine pH 6.5 (<5.0-8.0) Urine Specific [place] 1.010 (1.000-1.030) Urine Protein Negative mg/dL (NEG-TRACE) Urine Glucose (UA) Negative mg/dL (NEG) Urine Ketones (Stick) Negative mg/dL (NEG) Urine Blood Trace (NEG) Urine Nitrite Negative (NEG) Urine Bilirubin Negative (NEG) Urine Urobilinogen Dipstick 1.0 mg/dL (0.2 mg/dL) Urine Leukocyte Esterase Negative (NEG) Urine RBC 3-5 /HPF (0-2) Urine WBC 5-10 /HPF (0-4) Urine Squamous Epithelial Cells Few /LPF Urine Amorphous Sediment Present /HPF Urine Bacteria Few /HPF (0-FEW) Urine Mucus Slight /LPF Stool Occult Blood Positive (NEG) Test 02/06/21 21:15 02/07/21 08:00 Lactic Acid Level 2.8 mmol/L (0.4-2.0) Troponin I Quantitative 0.027 ng/mL (0.000-0.055) White Blood Count 7.1 x10^3/uL (4.0-11.0) Red Blood Count 3.25 x10^6/uL (4.30-5.70) Hemoglobin 11.1 g/dL (13.0-17.5) Hematocrit 32.7 % (39.0-53.0) Mean Corpuscular Volume 101 fL (79-100) Mean Corpuscular Hemoglobin 34 pg (25-35) Mean Corpuscular Hemoglobin Concent 34 g/dL (31-37) Red Cell Distribution Width 14.6 % (11.5-14.5) Platelet Count 172 x10^3/uL (140-400) Neutrophils (%) (Auto) 64 % (31-73) Lymphocytes (%) (Auto) 20 % (24-48) Monocytes (%) (Auto) 14 % (0-9) Eosinophils (%) (Auto) 2 % (0-3) Basophils (%) (Auto) 0 % (0-3) Neutrophils # (Auto) 4.5 x10^3/uL (1.8-7.7) Lymphocytes # (Auto) 1.4 x10^3/uL (1.0-4.8) Monocytes # (Auto) 1.0 x10^3/uL (0.0-1.1) Eosinophils # (Auto) 0.1 x10^3/uL (0.0-0.7) Basophils # (Auto) 0.0 x10^3/uL (0.0-0.2) Sodium Level 142 mmol/L (136-145) Potassium Level 3.2 mmol/L (3.5-5.1) Chloride Level 106 mmol/L (98-107) Carbon Dioxide Level 31 mmol/L (21-32) Anion Gap 5 (6-14) Blood Urea Nitrogen 33 mg/dL (8-26) Creatinine 1.8 mg/dL (0.7-1.3) Estimated GFR (Cockcroft-Gault) 38.2 BUN/Creatinine Ratio 18 (6-20) Glucose Level 91 mg/dL (70-99) Calcium Level 8.4 mg/dL (8.5-10.1) Total Bilirubin 0.2 mg/dL (0.2-1.0) Aspartate Amino Transf (AST/SGOT) 15 U/L (15-37) Alanine Aminotransferase (ALT/SGPT) 14 U/L (16-63) Alkaline Phosphatase 56 U/L (46-116) Total Protein 5.8 g/dL (6.4-8.2) Albumin 2.2 g/dL (3.4-5.0) Albumin/Globulin Ratio 0.6 (1.0-1.7) Review All relevant outside records, renal labs, imaging studies, telemetry/EKG's were reviewed. LIBORIO ROBERTS MD Feb 07, 2021 13:41
[2021-02-07] MEDS: DIVALPROEX DELAYED RELEASE 500 MG TABLET.DR. PO SCH (20:53)
[2021-02-07] MEDS: DOCUSATE SODIUM 100 MG CAPSULE. PO SCH (20:53)
[2021-02-07] MEDS: LACTOBACILLUS RHAMNOSUS GG 1 CAPSULE. PO SCH (20:53)
[2021-02-07] MEDS: OLANZapine 5 MG TABLET PO SCH (20:53)
[2021-02-08] VITALS (16 sets, daily range): BP systolic 86–168; BP diastolic 49–88
[2021-02-08 05:19] LABS: ALBUMIN 2.2 g/dL (3.4-5.0); CALCIUM 8.7 mg/dL (8.5-10.1); CREATININE 1.6 mg/dL (0.7-1.3); GFR 43.6; PHOSPHORUS 2.8 mg/dL (2.6-4.7); POTASSIUM 3.8 mmol/L (3.5-5.1)
[2021-02-08] MEDS: PIPERACILLIN/TAZOBACTAM 3.375 GM in IV NORMAL SALINE 50ML 50 ML IV SCH (05:38)
[2021-02-08] MEDS: LEVOTHYROXINE 100 MCG TABLET PO SCH (05:38)
[2021-02-08] MEDS: IBUPROFEN 400 MG TABLET. PO SCH ×2 (05:41→07:32)
--- NOTE | 2021-02-08 09:00 | PDOC ---
Infectious Disease Note Subjective: Subjective Patient states feels better Remains afebrile Denies any diarrhea Vital Signs: Vital Signs Vital Signs Date Time Temp Pulse Resp B/P (MAP) Pulse Ox O2 Delivery O2 Flow Rate FiO2 02/08/21 07:00 94 18 112/53 91 Nasal Cannula 2.0 02/08/21 04:00 98.0 98.0 Physical Exam: PHYSICAL EXAM GENERAL: Alert, awake male, in no acute distress, on O2. HEENT: Normocephalic and atraumatic. Anicteric. Oral mucosa moist. Dentition poor. NECK: Supple, no JVD. LUNGS: Decreased breath sounds at the bases, otherwise no accessory muscle use. CARDIOVASCULAR: S1, S2. No murmurs. ABDOMEN: Soft, nontender, nondistended. Bowel sounds present. EXTREMITIES: Bilateral lower extremity hyperpigmentation, skin breakdown over both the lower extremities. Pictures reviewed as the patient did not allow me to take the dressing down. Does not appear infected. Yeast present. DERMATOLOGIC: Warm, dry, no generalized rash except for above. NEUROLOGIC: Sleepy, but arousable, moves all four extremities. PSYCHIATRIC: Appears calm. Medications: Inpatient Meds: Medications reviewed. Labs: Lab Laboratory Tests Test 02/08/21 04:30 Sodium Level 146 mmol/L (136-145) Potassium Level 3.8 mmol/L (3.5-5.1) Chloride Level 109 mmol/L (98-107) Carbon Dioxide Level 30 mmol/L (21-32) Anion Gap 7 (6-14) Blood Urea Nitrogen 23 mg/dL (8-26) Creatinine 1.6 mg/dL (0.7-1.3) Estimated GFR (Cockcroft-Gault) 43.6 Glucose Level 90 mg/dL (70-99) Calcium Level 8.7 mg/dL (8.5-10.1) Phosphorus Level 2.8 mg/dL (2.6-4.7) Albumin 2.2 g/dL (3.4-5.0) Objective: Assessment: 1. Sepsis. Off pressors 2. Mental status changes, likely from dehydration, improved. 3. Lactic acidosis source GI. 4. Fecal occult blood positive. 5. Diarrhea. 6. Severe dehydration, renal failure. 7. Anemia. 8. History of schizophrenia. 9. 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 10. History of smoking. 11. Acute kidney injury with chronic kidney disease. 12. Anemia. 13. Protein-calorie malnutrition. Plan: Plan of Care Continue micafungin, PATRICK Zosyn Check C diff PCR if diarrhea recurs Monitor labs and cultures. Continue supportive care. Continue local wound care as directed. Discussed with nursing staff. NILSA TELLEZ MD Feb 08, 2021 09:00
[2021-02-08] MEDS: POLYETHYLENE GLYCOL 3350 17 GM PACKET. PO SCH (09:07)
[2021-02-08] MEDS: PANTOPRAZOLE 40 MG TABLET.DR. PO SCH (09:08)
[2021-02-08] MEDS: ZINC SULFATE 220 MG CAPSULE. PO SCH (09:08)
[2021-02-08] MEDS: LACTOBACILLUS RHAMNOSUS GG 1 CAPSULE. PO SCH ×2 (09:09→20:59)
[2021-02-08] MEDS: FLUoxetine HCL 10 MG CAPSULE PO SCH (09:09)
[2021-02-08] MEDS: CHOLECALCIFEROL (VITAMIN D3) 1,000 UNIT TABLET PO SCH (09:09)
[2021-02-08] MEDS: POTASSIUM CHLORIDE 20 MEQ TABLET.ER. PO SCH ×2 (09:09→20:59)
[2021-02-08] MEDS: metOLazone 2.5 MG TABLET PO SCH (09:09)
[2021-02-08] MEDS: MICAFUNGIN 100 MG in IV DEXTROSE 5% 100ML 100 ML IV SCH (12:10)
--- NOTE | 2021-02-08 13:12 | PDOC ---
G I PROGRESS NOTE Subjective No GI complaints. Fixated on eating and back issues. Objective No reports of any GI issues. Physical Exam Lungs clear anteriorly. RRR Abdomen soft, not tender. Review of Relevant I have reviewed the following items merlene (where applicable) has been applied. Labs Laboratory Tests Test 02/06/21 16:27 02/06/21 16:40 02/06/21 17:02 02/06/21 17:51 White Blood Count 8.9 x10^3/uL (4.0-11.0) Red Blood Count 3.55 x10^6/uL (4.30-5.70) Hemoglobin 11.9 g/dL (13.0-17.5) Hematocrit 35.5 % (39.0-53.0) Mean Corpuscular Volume 100 fL (79-100) Mean Corpuscular Hemoglobin 34 pg (25-35) Mean Corpuscular Hemoglobin Concent 34 g/dL (31-37) Red Cell Distribution Width 14.6 % (11.5-14.5) Platelet Count 220 x10^3/uL (140-400) Neutrophils (%) (Auto) 75 % (31-73) Lymphocytes (%) (Auto) 11 % (24-48) Monocytes (%) (Auto) 12 % (0-9) Eosinophils (%) (Auto) 1 % (0-3) Basophils (%) (Auto) 0 % (0-3) Neutrophils # (Auto) 6.7 x10^3/uL (1.8-7.7) Lymphocytes # (Auto) 1.0 x10^3/uL (1.0-4.8) Monocytes # (Auto) 1.1 x10^3/uL (0.0-1.1) Eosinophils # (Auto) 0.1 x10^3/uL (0.0-0.7) Basophils # (Auto) 0.0 x10^3/uL (0.0-0.2) Sodium Level 138 mmol/L (136-145) Potassium Level 3.9 mmol/L (3.5-5.1) Chloride Level 95 mmol/L (98-107) Carbon Dioxide Level 37 mmol/L (21-32) Anion Gap 6 (6-14) Blood Urea Nitrogen 39 mg/dL (8-26) Creatinine 2.5 mg/dL (0.7-1.3) Estimated GFR (Cockcroft-Gault) 26.1 BUN/Creatinine Ratio 16 (6-20) Glucose Level 121 mg/dL (70-99) Lactic Acid Level 2.8 mmol/L (0.4-2.0) Calcium Level 9.3 mg/dL (8.5-10.1) Phosphorus Level 5.2 mg/dL (2.6-4.7) Magnesium Level 1.7 mg/dL (1.8-2.4) Total Bilirubin 0.3 mg/dL (0.2-1.0) Aspartate Amino Transf (AST/SGOT) 18 U/L (15-37) Alanine Aminotransferase (ALT/SGPT) 18 U/L (16-63) Alkaline Phosphatase 63 U/L (46-116) Troponin I Quantitative < 0.017 ng/mL (0.000-0.055) HW-Gyp-V-Type Natriuretic Peptide 170 pg/mL (0-124) Total Protein 7.0 g/dL (6.4-8.2) Albumin 2.9 g/dL (3.4-5.0) Albumin/Globulin Ratio 0.7 (1.0-1.7) Coronavirus (COVID-19)(PCR) Not detected (NOT DETECTD) SARS-CoV-2 RNA (CHARLES) Invalid (Negative) SARS-CoV-2 Antigen (Rapid) Negative (NEGATIVE) Urine Collection Type Unknown Urine Color Yellow Urine Clarity Clear Urine pH 6.5 (<5.0-8.0) Urine Specific [place] 1.010 (1.000-1.030) Urine Protein Negative mg/dL (NEG-TRACE) Urine Glucose (UA) Negative mg/dL (NEG) Urine Ketones (Stick) Negative mg/dL (NEG) Urine Blood Trace (NEG) Urine Nitrite Negative (NEG) Urine Bilirubin Negative (NEG) Urine Urobilinogen Dipstick 1.0 mg/dL (0.2 mg/dL) Urine Leukocyte Esterase Negative (NEG) Urine RBC 3-5 /HPF (0-2) Urine WBC 5-10 /HPF (0-4) Urine Squamous Epithelial Cells Few /LPF Urine Amorphous Sediment Present /HPF Urine Bacteria Few /HPF (0-FEW) Urine Mucus Slight /LPF Stool Occult Blood Positive (NEG) Test 02/06/21 21:15 02/07/21 08:00 02/08/21 04:30 Lactic Acid Level 2.8 mmol/L (0.4-2.0) Troponin I Quantitative 0.027 ng/mL (0.000-0.055) White Blood Count 7.1 x10^3/uL (4.0-11.0) Red Blood Count 3.25 x10^6/uL (4.30-5.70) Hemoglobin 11.1 g/dL (13.0-17.5) Hematocrit 32.7 % (39.0-53.0) Mean Corpuscular Volume 101 fL (79-100) Mean Corpuscular Hemoglobin 34 pg (25-35) Mean Corpuscular Hemoglobin Concent 34 g/dL (31-37) Red Cell Distribution Width 14.6 % (11.5-14.5) Platelet Count 172 x10^3/uL (140-400) Neutrophils (%) (Auto) 64 % (31-73) Lymphocytes (%) (Auto) 20 % (24-48) Monocytes (%) (Auto) 14 % (0-9) Eosinophils (%) (Auto) 2 % (0-3) Basophils (%) (Auto) 0 % (0-3) Neutrophils # (Auto) 4.5 x10^3/uL (1.8-7.7) Lymphocytes # (Auto) 1.4 x10^3/uL (1.0-4.8) Monocytes # (Auto) 1.0 x10^3/uL (0.0-1.1) Eosinophils # (Auto) 0.1 x10^3/uL (0.0-0.7) Basophils # (Auto) 0.0 x10^3/uL (0.0-0.2) Sodium Level 142 mmol/L (136-145) 146 mmol/L (136-145) Potassium Level 3.2 mmol/L (3.5-5.1) 3.8 mmol/L (3.5-5.1) Chloride Level 106 mmol/L (98-107) 109 mmol/L (98-107) Carbon Dioxide Level 31 mmol/L (21-32) 30 mmol/L (21-32) Anion Gap 5 (6-14) 7 (6-14) Blood Urea Nitrogen 33 mg/dL (8-26) 23 mg/dL (8-26) Creatinine 1.8 mg/dL (0.7-1.3) 1.6 mg/dL (0.7-1.3) Estimated GFR (Cockcroft-Gault) 38.2 43.6 BUN/Creatinine Ratio 18 (6-20) Glucose Level 91 mg/dL (70-99) 90 mg/dL (70-99) Calcium Level 8.4 mg/dL (8.5-10.1) 8.7 mg/dL (8.5-10.1) Iron Level 43 ug/dL (65-175) Total Iron Binding Capacity 259 ug/dL (250-450) Iron Saturation 17 % (15-34) Total Bilirubin 0.2 mg/dL (0.2-1.0) Aspartate Amino Transf (AST/SGOT) 15 U/L (15-37) Alanine Aminotransferase (ALT/SGPT) 14 U/L (16-63) Alkaline Phosphatase 56 U/L (46-116) Total Protein 5.8 g/dL (6.4-8.2) Albumin 2.2 g/dL (3.4-5.0) 2.2 g/dL (3.4-5.0) Albumin/Globulin Ratio 0.6 (1.0-1.7) Phosphorus Level 2.8 mg/dL (2.6-4.7) Laboratory Tests Test 02/08/21 04:30 Sodium Level 146 mmol/L (136-145) Potassium Level 3.8 mmol/L (3.5-5.1) Chloride Level 109 mmol/L (98-107) Carbon Dioxide Level 30 mmol/L (21-32) Anion Gap 7 (6-14) Blood Urea Nitrogen 23 mg/dL (8-26) Creatinine 1.6 mg/dL (0.7-1.3) Estimated GFR (Cockcroft-Gault) 43.6 Glucose Level 90 mg/dL (70-99) Calcium Level 8.7 mg/dL (8.5-10.1) Phosphorus Level 2.8 mg/dL (2.6-4.7) Albumin 2.2 g/dL (3.4-5.0) Microbiology 02/06/21 Urine Culture - Final, Complete 02/06/21 Blood Culture - Preliminary, Resulted NO GROWTH AFTER 1 DAY [place]. Vitals/I & O Vital Sign - Last 24 Hours 02/07/21 02/07/21 02/07/21 02/07/21 14:00 15:00 16:00 16:00 Pulse 86 75 75 Resp 14 14 14 B/P (MAP) 102/54 103/53 98/52 Pulse Ox 92 93 93 O2 Delivery Room Air Room Air Room Air Nasal Cannula O2 Flow Rate 2.0 02/07/21 02/07/21 02/07/21 02/07/21 17:00 18:00 19:00 20:00 Temp 98.7 97.6 98.7 97.6 Pulse 65 68 74 62 Resp 14 14 14 14 B/P (MAP) 87/49 91/52 109/54 85/51 Pulse Ox 93 96 94 94 O2 Delivery Room Air Room Air Room Air Room Air 02/07/21 02/07/21 02/07/21 02/07/21 20:30 21:00 22:00 23:00 Pulse 62 64 76 Resp 14 14 14 B/P (MAP) 108/57 107/58 94/53 Pulse Ox 95 92 91 O2 Delivery Nasal Cannula Room Air Room Air Room Air O2 Flow Rate 2.0 02/08/21 02/08/21 02/08/21 02/08/21 00:00 00:00 01:00 02:00 Temp 97.9 97.9 Pulse 79 76 76 Resp 16 14 14 B/P (MAP) 97/53 103/52 123/63 Pulse Ox 93 91 91 O2 Delivery Nasal Cannula Room Air Room Air Room Air O2 Flow Rate 2.0 02/08/21 02/08/21 02/08/21 02/08/21 03:00 04:00 04:00 05:00 Temp 98.0 98.0 Pulse 78 96 88 Resp 14 16 14 B/P (MAP) 95/58 132/74 125/72 Pulse Ox 94 93 93 O2 Delivery Room Air Nasal Cannula Room Air Room Air O2 Flow Rate 2.0 02/08/21 02/08/21 02/08/21 02/08/21 06:00 07:00 08:00 08:00 Temp 98.2 98.2 Pulse 81 94 88 Resp 14 18 16 B/P (MAP) 168/88 112/53 116/65 Pulse Ox 100 91 91 O2 Delivery Room Air Nasal Cannula Nasal Cannula Nasal Cannula O2 Flow Rate 2.0 2.0 2.0 02/08/21 02/08/21 02/08/21 09:00 10:00 11:00 Pulse 84 78 79 Resp 18 18 22 B/P (MAP) 107/55 86/49 94/54 Pulse Ox 90 91 90 O2 Delivery Room Air Room Air Room Air Intake and Output 02/07/21 02/07/21 02/08/21 15:00 23:00 07:00 Intake Total 200 ml 360 ml 450 ml Output Total 500 ml 925 ml 900 ml Balance -300 ml -565 ml -450 ml Problem List Problems Medical Problems: (1) Acute kidney injury Status: Acute (2) TEODORO (acute kidney injury) Status: Acute (3) Altered mental state Status: Acute (4) Hypotension Status: Acute Assessment Hypotension/lactic acidosis, cause unclear. Heme positive stool/minor overt blood with stool. Plan of Care Note [facility] OK with me to feed. Justicifation of Admission Dx: Justifications for Admission: Justification of Admission Dx: Yes Sepsis: End-Organ Dysfunction BRUNILDA CHAPPELL MD Feb 08, 2021 13:12
--- NOTE | 2021-02-08 14:08 | PDOC ---
[facility] PROGRESS NOTE Date of Service DOS: DATE: 02/08/21 TIME: 14:07 Chief Complaint Chief Complaint Mental status change, severe dehydration, renal failure, Severe encephalopathy anemia, lactic acidosis and guaiac positive stool. CHF, COPD, depression, hypothyroidism, schizophrenia, recent COVID-19, left lower leg ulcer, chronic cellulitis of both lower extremities. History of Present Illness History of Present Illness 02/08/2021 Patient seen and examined in the ICU He remains alert but pleasantly confused which I think is his baseline Discussed with RN Chart reviewed 02/07/2021 Patient seen and examined in the ICU Creat down from 2.5-1.6 He remains very encephalopathic Chart reviewed Discussed with RN Vitals/I&O Vitals/I&O: Vital Signs Date Time Temp Pulse Resp B/P (MAP) Pulse Ox O2 Delivery O2 Flow Rate FiO2 02/08/21 12:00 98.9 80 23 88/50 91 Room Air 98.9 02/08/21 12:00 2.0 I & O 02/07/21 02/07/21 02/08/21 15:00 23:00 07:00 Intake Total 200 ml 360 ml 450 ml Output Total 500 ml 925 ml 900 ml Balance -300 ml -565 ml -450 ml Physical Exam Physical Exam: GENERAL: Alert, awake male, in no acute distress, on O2. HEENT: Normocephalic and atraumatic. Anicteric. Oral mucosa moist. Dentition poor. NECK: Supple, no JVD. LUNGS: Decreased breath sounds at the bases, otherwise no accessory muscle use. CARDIOVASCULAR: S1, S2. No murmurs. ABDOMEN: Soft, nontender, nondistended. Bowel sounds present. EXTREMITIES: Bilateral lower extremity hyperpigmentation, skin breakdown over both the lower extremities. Pictures reviewed as the patient did not allow me to take the dressing down. Does not appear infected. Yeast present. DERMATOLOGIC: Warm, dry, no generalized rash except for above. NEUROLOGIC: Sleepy, but arousable, moves all four extremities. PSYCHIATRIC: Appears calm. Lungs: Clear Labs Labs: Laboratory Tests Test 02/08/21 04:30 Sodium Level 146 mmol/L (136-145) Potassium Level 3.8 mmol/L (3.5-5.1) Chloride Level 109 mmol/L (98-107) Carbon Dioxide Level 30 mmol/L (21-32) Anion Gap 7 (6-14) Blood Urea Nitrogen 23 mg/dL (8-26) Creatinine 1.6 mg/dL (0.7-1.3) Estimated GFR (Cockcroft-Gault) 43.6 Glucose Level 90 mg/dL (70-99) Calcium Level 8.7 mg/dL (8.5-10.1) Phosphorus Level 2.8 mg/dL (2.6-4.7) Albumin 2.2 g/dL (3.4-5.0) Assessment and Plan Assessmemt and Plan Problems Medical Problems: (1) Acute kidney injury Status: Acute (2) TEODORO (acute kidney injury) Status: Acute (3) Altered mental state Status: Acute (4) Hypotension Status: Acute Mental status change, severe dehydration, renal failure, Severe encephalopathy anemia, lactic acidosis and guaiac positive stool. CHF, COPD, depression, hypothyroidism, schizophrenia, recent COVID-19, left lower leg ulcer, chronic cellulitis of both lower extremities. PUI Plan Await subspecialist input IV fluids Hope to transfer to monitored bed later today Continue micafungin Await repeat Covid testing Trend labs Encourage p.o. intake once he is more alert Await further GI, infectious disease and nephrology input Antibiotics per ID DVT prophylaxis Home meds when possible Full code Prognosis improving Comment Review of Relevant I have reviewed the following items merlene (where applicable) has been applied. Medications: Current Medications Medications (Trade) Dose Ordered Sig/Dread Route PRN Reason Start Time Stop Time Status Last Admin Dose Admin Divalproex Sodium (Depakote) 1,500 mg HS PO 02/07/21 21:00 02/07/21 20:53 Olanzapine (ZyPREXA) 10 mg QHS PO 02/07/21 21:00 02/07/21 20:53 Lactobacillus Rhamnosus (Culturelle) 1 cap BID PO 02/07/21 21:00 02/08/21 09:09 Justifications for Admission Other Justification ELIZABETH AVILES III DO Feb 08, 2021 14:08
--- NOTE | 2021-02-08 14:23 | PDOC ---
DATE OF SERVICE DATE: 02/08/21 TIME: 14:18 SUBJECTIVE ROS Stable States feeling better OBJECTIVE Vital Signs Vital Signs Date Time Temp Pulse Resp B/P (MAP) Pulse Ox O2 Delivery O2 Flow Rate FiO2 02/08/21 13:00 88 22 98/51 93 Room Air 02/08/21 12:00 98.9 98.9 02/08/21 12:00 2.0 I & 0 Intake and Output 02/08/21 07:00 Intake Total 1010 ml Output Total 2325 ml Balance -1315 ml Intake Oral 960 ml IV Total 50 ml Output Urine Total 2325 ml PHYSICAL EXAM Physical Exam GENERAL: no acute distress, HEENT: Normocephalic and atraumatic. Anicteric. Oral mucosa moist. On o2 by NC NECK: Supple, LUNGS: Decreased breath sounds at the bases, no accessory muscle use. CV: S1, S2. No murmurs. ABDOMEN: Soft, nontender, nondistended. Bowel sounds present. EXTREMITIES: Has dressing on both LE DERMATOLOGIC:no generalized rash NEUROLOGIC: Sleepy, but arousable, moves all four extremities. [place] in place DIAGNOSIS/ASSESSMENT Assessment & Plan TEODORO - Vasomotor/Dehydration / Non oliguric , Improving renal function with IVF. Supportive care, maintain fluid balance ,, strict I/O, Avoid Nephrotoxins (Ibuprofen listed in his current Med list per Dr. Iniguez) Sepsis/ Lactic acidosis.- ID consulted HypOtension- Recommend holding Antihypertensives and Diuretics- defer to Primary AMS POA- improved Anemia - Fecal occult blood positive.Per GI History of schizophrenia. 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 COMMENT/RELEVANT DATA Meds Current Medications Medications (Trade) Dose Ordered Sig/Dread Start Time Stop Time Status Last Admin Dose Admin Acetaminophen (Tylenol) 650 mg PRN Q4HRS PRN 02/06/21 18:15 02/07/21 18:14 DC Albuterol Sulfate (Ventolin Neb Soln) 2.5 mg PRN Q6HRS PRN 02/07/21 11:00 Clindamycin Phosphate 50 ml @ 100 mls/hr 1X ONCE 02/06/21 18:00 02/06/21 18:29 DC 02/06/21 17:57 100 MLS/HR Divalproex Sodium (Depakote) 1,500 mg HS 02/07/21 21:00 02/07/21 20:53 1,500 MG Docusate Sodium (Colace) 100 mg HS 02/07/21 21:00 Fentanyl Citrate (Fentanyl 2ml Vial) 50 mcg PRN Q1HR PRN 02/06/21 18:15 02/07/21 18:14 DC Fluoxetine HCl (PROzac) 10 mg DAILY 02/07/21 12:00 02/08/21 09:09 10 MG Ibuprofen (Motrin) 400 mg Q6HRS 02/07/21 12:00 02/08/21 07:32 400 MG Lactobacillus Rhamnosus (Culturelle) 1 cap BID 02/07/21 21:00 02/08/21 09:09 1 CAP Levothyroxine Sodium (Synthroid) 100 mcg DAILY06 02/07/21 12:00 02/08/21 05:38 100 MCG Magnesium Hydroxide (Milk Of Magnesia) 2,400 mg PRN Q24HRS PRN 02/07/21 10:45 Metolazone (Zaroxolyn) 2.5 mg DAILY 02/07/21 12:00 02/08/21 09:09 2.5 MG Micafungin Sodium 100 mg/Dextrose 100 ml @ 100 mls/hr Q24H 02/07/21 13:00 02/08/21 12:10 100 MLS/HR Non-Formulary Medication ([place] Tar ) 100 gm Tue02/07/21 10:45 UNV Non-Formulary Medication (Paliperidone Palmitate (Invega Sustenna)) 234 mg [id number] 03/07/21 09:00 UNV Norepinephrine Bitartrate 8 mg/ Dextrose 258 ml @ 17.609 mls/ hr CONT PRN 02/06/21 18:30 02/07/21 05:48 20.7 MLS/HR Nystatin (Mycostatin) 1 allison BID PRN 02/07/21 10:45 Olanzapine (ZyPREXA) 10 mg QHS 02/07/21 21:00 02/07/21 20:53 10 MG Ondansetron HCl (Zofran) 4 mg PRN Q8HRS PRN 02/06/21 18:15 02/07/21 18:14 DC Pantoprazole Sodium (Protonix) 40 mg DAILYAC 02/07/21 12:00 02/08/21 09:08 40 MG Piperacillin Sod/ Tazobactam Sod 3.375 gm/Sodium Chloride 50 ml @ 100 mls/hr Q6HRS 02/07/21 12:30 02/08/21 09:01 DC 02/08/21 05:38 100 MLS/HR Polyethylene Glycol (miraLAX PACKET) 17 gm DAILY 02/07/21 12:00 02/08/21 09:07 17 GM Potassium Chloride (Klor-Con) 20 meq BID 02/07/21 12:00 02/08/21 09:09 20 MEQ Sodium Chloride 1,000 ml @ 125 mls/hr Q8H 02/06/21 18:15 02/07/21 18:14 DC 02/07/21 05:52 125 MLS/HR Vancomycin HCl 2 gm/Sodium Chloride 500 ml @ 250 mls/hr 1X ONCE 02/06/21 17:30 02/06/21 17:31 DC Vitamin D (Vitamin D3) 2,000 unit DAILY 02/07/21 12:00 02/08/21 09:09 2,000 UNIT Zinc Sulfate (Orazinc) 220 mg DAILY 02/07/21 12:00 02/08/21 09:08 220 MG Lab Laboratory Tests Test 02/08/21 04:30 Sodium Level 146 mmol/L (136-145) Potassium Level 3.8 mmol/L (3.5-5.1) Chloride Level 109 mmol/L (98-107) Carbon Dioxide Level 30 mmol/L (21-32) Anion Gap 7 (6-14) Blood Urea Nitrogen 23 mg/dL (8-26) Creatinine 1.6 mg/dL (0.7-1.3) Estimated GFR (Cockcroft-Gault) 43.6 Glucose Level 90 mg/dL (70-99) Calcium Level 8.7 mg/dL (8.5-10.1) Phosphorus Level 2.8 mg/dL (2.6-4.7) Albumin 2.2 g/dL (3.4-5.0) Results All relevant outside records, renal labs, imaging studies, telemetry/EKG's were reviewed. Justicifation of Admission Dx: Justifications for Admission: Justification of Admission Dx: Yes Sepsis: End-Organ Dysfunction LIBORIO ROBERTS MD Feb 08, 2021 14:23
[2021-02-08] MEDS ORDERED: IBUPROFEN 400 MG TABLET. PO PRN (15:00)
[2021-02-08] MEDS: DOCUSATE SODIUM 100 MG CAPSULE. PO SCH (20:59)
[2021-02-08] MEDS: DIVALPROEX DELAYED RELEASE 500 MG TABLET.DR. PO SCH (20:59)
[2021-02-08] MEDS: OLANZapine 5 MG TABLET PO SCH (20:59)
[2021-02-09 03:00] VITALS: BP 107/57
[2021-02-09] MEDS: PANTOPRAZOLE 40 MG TABLET.DR. PO SCH (05:57)
[2021-02-09] MEDS: LEVOTHYROXINE 100 MCG TABLET PO SCH (05:58)
[2021-02-09 07:15] VITALS: BP 135/66
[2021-02-09 07:43] LABS: CREATININE 1.5 mg/dL (0.7-1.3); POTASSIUM 3.9 mmol/L (3.5-5.1)
[2021-02-09 08:08] VITALS: BP 135/66
--- NOTE | 2021-02-09 08:15 | PDOC ---
Infectious Disease Note Subjective: Subjective Patient states feels better Remains afebrile Denies fever, nausea, vomiting, shortness of breath, diarrhea, abdominal pain, rash Vital Signs: Vital Signs Vital Signs Date Time Temp Pulse Resp B/P (MAP) Pulse Ox O2 Delivery O2 Flow Rate FiO2 02/09/21 08:08 97.7 77 20 135/66 (89) 94 Nasal Cannula 2.0 97.7 Physical Exam: PHYSICAL EXAM GENERAL: Alert, awake male, in no acute distress, on O2. HEENT: Normocephalic and atraumatic. Anicteric. Oral mucosa moist. Dentition poor. NECK: Supple, no JVD. LUNGS: Decreased breath sounds at the bases, otherwise no accessory muscle use. CARDIOVASCULAR: S1, S2. No murmurs. ABDOMEN: Soft, nontender, nondistended. Bowel sounds present. EXTREMITIES: Bilateral lower extremity hyperpigmentation, skin breakdown over both the lower extremities. Pictures reviewed as the patient did not allow me to take the dressing down. Does not appear infected. Yeast present. DERMATOLOGIC: Warm, dry, no generalized rash except for above. NEUROLOGIC: Sleepy, but arousable, moves all four extremities. PSYCHIATRIC: Appears calm. Medications: Inpatient Meds: Medications reviewed. Labs: Lab Laboratory Tests Test 02/09/21 05:50 Sodium Level 143 mmol/L (136-145) Potassium Level 3.9 mmol/L (3.5-5.1) Chloride Level 105 mmol/L (98-107) Carbon Dioxide Level 31 mmol/L (21-32) Anion Gap 7 (6-14) Blood Urea Nitrogen 16 mg/dL (8-26) Creatinine 1.5 mg/dL (0.7-1.3) Estimated GFR (Cockcroft-Gault) 47.0 Glucose Level 69 mg/dL (70-99) Calcium Level 9.0 mg/dL (8.5-10.1) Objective: Assessment: 1. Sepsis. Off pressors 2. Encephalopathy likely from dehydration, improved. 3. Lactic acidosis source GI. 4. Fecal occult blood positive. 5. Diarrhea. Resolved 6. Severe dehydration, renal failure. Improving 7. Anemia. 8. History of schizophrenia. 9. 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 10. History of smoking. 11. Acute kidney injury with chronic kidney disease. 12. Anemia. 13. Protein-calorie malnutrition. Plan: Plan of Care DC micafungin, off Zosyn Monitor labs and cultures. Continue supportive care. Continue local wound care as directed. NILSA TELLEZ MD Feb 09, 2021 08:15
[2021-02-09] MEDS: POLYETHYLENE GLYCOL 3350 17 GM PACKET. PO SCH (09:00)
[2021-02-09] MEDS: POTASSIUM CHLORIDE 20 MEQ TABLET.ER. PO SCH (09:43)
[2021-02-09] MEDS: ZINC SULFATE 220 MG CAPSULE. PO SCH (09:43)
[2021-02-09] MEDS: metOLazone 2.5 MG TABLET PO SCH (09:43)
[2021-02-09] MEDS: LACTOBACILLUS RHAMNOSUS GG 1 CAPSULE. PO SCH (09:43)
[2021-02-09] MEDS: CHOLECALCIFEROL (VITAMIN D3) 1,000 UNIT TABLET PO SCH (09:44)
[2021-02-09] MEDS: FLUoxetine HCL 10 MG CAPSULE PO SCH (09:45)
--- NOTE | 2021-02-09 10:08 | PDOC ---
DATE OF SERVICE DATE: 02/09/21 TIME: 10:07 SUBJECTIVE ROS Stable ,States feeling better Denies fever, nausea, vomiting, shortness of breath, diarrhea, abdominal pain OBJECTIVE Vital Signs Vital Signs Date Time Temp Pulse Resp B/P (MAP) Pulse Ox O2 Delivery O2 Flow Rate FiO2 02/09/21 08:08 2.0 I & 0 Intake and Output 02/09/21 07:00 Intake Total 520 ml Output Total 3750 ml Balance -3230 ml Intake Oral 520 ml Output Urine Total 3750 ml PHYSICAL EXAM Physical Exam GENERAL: no acute distress, HEENT: Normocephalic and atraumatic. Anicteric. Oral mucosa moist. On o2 by NC NECK: Supple, LUNGS: Decreased breath sounds at the bases, no accessory muscle use. CV: S1, S2. No murmurs. ABDOMEN: Soft, nontender, nondistended. Bowel sounds present. EXTREMITIES: Has dressing on both LE DERMATOLOGIC:no generalized rash NEUROLOGIC: Sleepy, but arousable, moves all four extremities. [place] in place DIAGNOSIS/ASSESSMENT DIAGNOSIS/ASSESSMENT Assessment & Plan TEODORO - Vasomotor/Dehydration / Non oliguric , Improving renal function with IVF. Supportive care, maintain fluid balance ,, strict I/O, Avoid Nephrotoxins Sepsis/ Lactic acidosis.- ID consulted HypOtension- Recommend holding Antihypertensives and Diuretics- defer to Primary AMS POA- improved Anemia - Fecal occult blood positive.Per GI History of schizophrenia. 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 COMMENT/RELEVANT DATA Meds Current Medications Medications (Trade) Dose Ordered Sig/Dread Start Time Stop Time Status Last Admin Dose Admin Acetaminophen (Tylenol) 650 mg PRN Q4HRS PRN 02/06/21 18:15 02/07/21 18:14 DC Albuterol Sulfate (Ventolin Neb Soln) 2.5 mg PRN Q6HRS PRN 02/07/21 11:00 Clindamycin Phosphate 50 ml @ 100 mls/hr 1X ONCE 02/06/21 18:00 02/06/21 18:29 DC 02/06/21 17:57 100 MLS/HR Divalproex Sodium (Depakote) 1,500 mg HS 02/07/21 21:00 02/08/21 20:59 1,500 MG Docusate Sodium (Colace) 100 mg HS 02/07/21 21:00 02/08/21 20:59 100 MG Fentanyl Citrate (Fentanyl 2ml Vial) 50 mcg PRN Q1HR PRN 02/06/21 18:15 02/07/21 18:14 DC Fluoxetine HCl (PROzac) 10 mg DAILY 02/07/21 12:00 02/09/21 09:45 10 MG Ibuprofen (Motrin) 400 mg PRN Q6HRS PRN 02/08/21 15:00 Lactobacillus Rhamnosus (Culturelle) 1 cap BID 02/07/21 21:00 02/09/21 09:43 1 CAP Levothyroxine Sodium (Synthroid) 100 mcg DAILY06 02/07/21 12:00 02/09/21 05:58 100 MCG Magnesium Hydroxide (Milk Of Magnesia) 2,400 mg PRN Q24HRS PRN 02/07/21 10:45 Metolazone (Zaroxolyn) 2.5 mg DAILY 02/07/21 12:00 02/09/21 09:43 2.5 MG Micafungin Sodium 100 mg/Dextrose 100 ml @ 100 mls/hr Q24H 02/07/21 13:00 02/08/21 12:10 100 MLS/HR Non-Formulary Medication ([place] Tar ) 100 gm Tue02/07/21 10:45 UNV Non-Formulary Medication (Paliperidone Palmitate (Invega Sustenna)) 234 mg [id number] 03/07/21 09:00 UNV Norepinephrine Bitartrate 8 mg/ Dextrose 258 ml @ 17.609 mls/ hr CONT PRN 02/06/21 18:30 02/07/21 05:48 20.7 MLS/HR Nystatin (Mycostatin) 1 allison BID PRN 02/07/21 10:45 Olanzapine (ZyPREXA) 10 mg QHS 02/07/21 21:00 02/08/21 20:59 10 MG Ondansetron HCl (Zofran) 4 mg PRN Q8HRS PRN 02/06/21 18:15 02/07/21 18:14 DC Pantoprazole Sodium (Protonix) 40 mg DAILYAC 02/07/21 12:00 02/09/21 05:57 40 MG Piperacillin Sod/ Tazobactam Sod 3.375 gm/Sodium Chloride 50 ml @ 100 mls/hr Q6HRS 02/07/21 12:30 02/08/21 09:01 DC 02/08/21 05:38 100 MLS/HR Polyethylene Glycol (miraLAX PACKET) 17 gm DAILY 02/07/21 12:00 02/08/21 09:07 17 GM Potassium Chloride (Klor-Con) 20 meq BID 02/07/21 12:00 02/09/21 09:43 20 MEQ Sodium Chloride 1,000 ml @ 125 mls/hr Q8H 02/06/21 18:15 02/07/21 18:14 DC 02/07/21 05:52 125 MLS/HR Vancomycin HCl 2 gm/Sodium Chloride 500 ml @ 250 mls/hr 1X ONCE 02/06/21 17:30 02/06/21 17:31 DC Vitamin D (Vitamin D3) 2,000 unit DAILY 02/07/21 12:00 02/09/21 09:44 2,000 UNIT Zinc Sulfate (Orazinc) 220 mg DAILY 02/07/21 12:00 02/09/21 09:43 220 MG Lab Laboratory Tests Test 02/09/21 05:50 Sodium Level 143 mmol/L (136-145) Potassium Level 3.9 mmol/L (3.5-5.1) Chloride Level 105 mmol/L (98-107) Carbon Dioxide Level 31 mmol/L (21-32) Anion Gap 7 (6-14) Blood Urea Nitrogen 16 mg/dL (8-26) Creatinine 1.5 mg/dL (0.7-1.3) Estimated GFR (Cockcroft-Gault) 47.0 Glucose Level 69 mg/dL (70-99) Calcium Level 9.0 mg/dL (8.5-10.1) Results All relevant outside records, renal labs, imaging studies, telemetry/EKG's were reviewed. Justicifation of Admission Dx: Justifications for Admission: Justification of Admission Dx: Yes Sepsis: End-Organ Dysfunction LIBORIO ROBERTS MD Feb 09, 2021 10:07
[2021-02-09 10:57] VITALS: BP 112/62
--- NOTE | 2021-02-09 11:12 | NUR ---
AJITH following. Discussed with RN. 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 AJITH faxed updates, they will not accept pt back until they review the updates. Dr. Iniguez potentially discharging pt today. RN notified. AJITH will continue to follow. Addendum: 02/09/21 at 1406 by RAUL CANSECO Discharge orders faxed to [facility] and [facility], awaiting stretcher transportation time. Addendum: 02/09/21 at 1508 by RAUL CANSECO Stretcher transportation arranged for 1600 by [facility] and [facility]. RN notified.
--- NOTE | 2021-02-09 12:34 | PDOC ---
Date of Service: DATE: 02/09/21 TIME: 12:29 Subjective: Subjective: Mostly wants to talk about "the boots that keep your ankles straight" and would like a number to call to see if he can get some. No abd pain but feels bloated. Tolerating clear liquids, wants more to eat. No diarrhea or bleeding. Objective: Objective: D/w nurse - apparently possible DC today? [facility]. Vital Signs: Vital Signs Date Time Temp Pulse Resp B/P (MAP) Pulse Ox O2 Delivery O2 Flow Rate FiO2 02/09/21 10:57 98.4 76 18 112/62 (79) 92 Nasal Cannula 2.0 98.4 Labs: Laboratory Tests Test 02/09/21 05:50 Sodium Level 143 mmol/L Potassium Level 3.9 mmol/L Chloride Level 105 mmol/L Carbon Dioxide Level 31 mmol/L Anion Gap 7 Blood Urea Nitrogen 16 mg/dL Creatinine 1.5 mg/dL Estimated GFR (Cockcroft-Gault) 47.0 Glucose Level 69 mg/dL Calcium Level 9.0 mg/dL URINE CULTURE Final Final No Growth on 02/08/21 at 0830 BLOOD CULTURE Preliminary NO GROWTH AFTER 2 DAYS PE: GEN: NAD LUNGS: NC not positioned properly ("I know"), poor air movement HEART: RRR ABD: quiet BS, soft, non-tender, maybe some mild distention EXTREMITY/SKIN: BLE wrapped NEURO/PSYCH: A & O 3, odd affect A/P: Hypotension/lactic acidosis - better Macrocytic anemia, normal B12 +Hemoccult Diarrhea - resolved Schizophrenia Chronic BLE wounds COVID negative -- Okay to advance diet. Justicifation of Admission Dx: Justifications for Admission: Justification of Admission Dx: Yes Sepsis: End-Organ Dysfunction KIM TYLER Feb 09, 2021 12:34
--- NOTE | 2021-02-09 13:05 | PDOC ---
[employer] PROGRESS NOTE Date of Service DOS: DATE: 02/09/21 TIME: 12:52 Chief Complaint Chief Complaint Mental status change Severe dehydration Renal failure Vasomotor nephropathy Severe metabolic encephalopathy Anemia Lactic acidosis Sepsis possibly secondary from cellulitis Guaiac positive stool CHF COPD Depression Hypothyroidism Schizophrenia Recent COVID-19 Left lower leg ulcer Chronic cellulitis of both lower extremities History of Present Illness History of Present Illness 02/09/2021 Patient seen and examined. Discussed with RN and social welfare administrator. Chart reviewed. Patient is sleeping with with blanket over his head. Patient responses to questions but is pleasantly confused. Patient stayed at a care home prior to coming to the hospital. 02/08/2021 Patient seen and examined in the ICU He remains alert but pleasantly confused which I think is his baseline Discussed with RN Chart reviewed 02/07/2021 Patient seen and examined in the ICU Creat down from 2.5-1.6 He remains very encephalopathic Chart reviewed Discussed with RN Vitals/I&O Vitals/I&O: Vital Signs Date Time Temp Pulse Resp B/P (MAP) Pulse Ox O2 Delivery O2 Flow Rate FiO2 02/09/21 10:57 98.4 76 18 112/62 (79) 92 Nasal Cannula 2.0 98.4 I & O 02/08/21 02/08/21 02/09/21 15:00 23:00 07:00 Intake Total 520 ml Output Total 1150 ml 1000 ml 1600 ml Balance -630 ml -1000 ml -1600 ml Physical Exam Physical Exam: GENERAL: Alert, awake male, in no acute distress, on O2. HEENT: Normocephalic and atraumatic. Anicteric. Oral mucosa moist. Dentition poor. NECK: Supple, no JVD. LUNGS: Decreased breath sounds at the bases, otherwise no accessory muscle use. CARDIOVASCULAR: S1, S2. No murmurs. ABDOMEN: Soft, nontender, nondistended. Bowel sounds present. EXTREMITIES: Bilateral lower extremity hyperpigmentation, skin breakdown over both the lower extremities. Pictures reviewed as the patient did not allow me to take the dressing down. Does not appear infected. Yeast present. DERMATOLOGIC: Warm, dry, no generalized rash except for above. NEUROLOGIC: Sleepy, but arousable, moves all four extremities. PSYCHIATRIC: Appears calm. General: No acute distress, Other (sleepy) Heart: Regular rate Lungs: Clear Abdomen: Soft, No tenderness Extremities: No clubbing, Normal pulses Skin: No significant lesion Labs Labs: Laboratory Tests Test 02/09/21 05:50 Sodium Level 143 mmol/L (136-145) Potassium Level 3.9 mmol/L (3.5-5.1) Chloride Level 105 mmol/L (98-107) Carbon Dioxide Level 31 mmol/L (21-32) Anion Gap 7 (6-14) Blood Urea Nitrogen 16 mg/dL (8-26) Creatinine 1.5 mg/dL (0.7-1.3) Estimated GFR (Cockcroft-Gault) 47.0 Glucose Level 69 mg/dL (70-99) Calcium Level 9.0 mg/dL (8.5-10.1) Assessment and Plan Assessmemt and Plan Problems Medical Problems: (1) Acute kidney injury Status: Acute (2) TEODORO (acute kidney injury) Status: Acute (3) Altered mental state Status: Acute (4) Hypotension Status: Acute (5) Vasomotor nephropathy Status: Acute (6) Metabolic encephalopathy Status: Acute Mental status change Severe dehydration Renal failure Vasomotor nephropathy Severe metabolic encephalopathy Anemia Lactic acidosis Sepsis possibly secondary from cellulitis Guaiac positive stool CHF COPD Depression Hypothyroidism Schizophrenia Recent COVID-19 Left lower leg ulcer Chronic cellulitis of both lower extremities Plan: Probable discharge back to his long-term care facility at [facility] later today if okay with consultants He will need stretcher transport back to the facility For now continue the following; Trend labs Encourage p.o. intake once he is more alert Antibiotics per ID DVT prophylaxis Home meds Full code Prognosis improving Comment Review of Relevant I have reviewed the following items merlene (where applicable) has been applied. Medications: Current Medications Medications (Trade) Dose Ordered Sig/Dread Route PRN Reason Start Time Stop Time Status Last Admin Dose Admin Ibuprofen (Motrin) 400 mg PRN Q6HRS PRN PO INFLAMMATION 02/08/21 15:00 02/09/21 12:39 Justifications for Admission Other Justification ELIZABETH AVILES III DO Feb 09, 2021 13:04
--- NOTE | 2021-02-09 13:56 | SNU/HH DC ---
DISCHARGE ORDERS DISCHARGE INFORMATION: FINAL DIAGNOSIS Problems Medical Problems: (1) Acute kidney injury Status: Acute (2) TEODORO (acute kidney injury) Status: Acute (3) Altered mental state Status: Acute (4) Hypotension Status: Acute CONDITION ON DISCHARGE: Stable CODE STATUS: Code Status: Full INTERMEDIATE: SNF STAY <30 DAYS: No HOSPICE: HOSPICE: No HOSPICE EVAL & TREAT: No LTAC: ADMIT TO LTAC: No POST DISCHARGE ORDERS: ACTIVITY ORDERS: Resume previous activity DIET AFTER DISCHARGE: Cardiac CHECKS AFTER DISCHARGE: COMMENTS: He needs stretcher transport back to facility DISCHARGE MEDICATIONS: Home Meds Reported Medications [zinc] No Conflict Check, 250 MG PO DAILY for zinc deficiency 04/14/20 Potassium Chloride (KLOR-CON M20) 20 Meq Tab.er.prt, 20 MEQ PO BID for hypokalemia, TAB.SR 04/14/20 Polyethylene Glycol 3350 (MIRALAX) 17 Gm Powd.pack, 1 PACKET PO Q12HR PRN for CONSTIPATION, #30 PACKET 0 Refills dissolve in water 04/14/20 Polyethylene Glycol 3350 (MIRALAX) 17 Gm Powd.pack, 1 PKT PO DAILY for constipation, PKT 04/14/20 Nystatin (NYSTATIN) 15 Gm Cream..g., 1 RASHAD TP BID PRN for redness/gaulding r/t candidias, #30 GM 04/14/20 Ipratropium/Albuterol Sulfate (DUONEB 0.5-3(2.5) MG/3 ML) 3 Ml Ampul.neb, 3 ML NEB Q6HRS PRN for low oxygen saturation, EACH 04/14/20 Paliperidone Palmitate (INVEGA SUSTENNA) 234 Mg/1.5 Ml Disp.syrin, 234 MG IM [id number] for scizoaffective disorder, DIS.SYR 04/14/20 Furosemide (FUROSEMIDE) 20 Mg Tablet, 3 TAB PO DAILY for heart failure, #90 TAB 3 Refills 04/14/20 [cholecalciferol ] No Conflict Check, 2000 UNITS PO DAILY for vitamin D deficiency 04/14/20 Fluoxetine Hcl (PROZAC) 10 Mg Capsule, 1 CAP PO DAILY for DEPRESSION, #30 CAP 1 Refill 04/13/20 Potassium Chloride (KLOR-CON 10) 10 Meq Tablet.er, 1 TAB PO DAILY for HEART FAILURE for 30 Days, #30 TAB 0 Refills 04/13/20 Olanzapine (OLANZAPINE) 10 Mg Tablet, 1 TAB PO QHS for SCHIZOAFFECTIVE DISORDER, #30 TAB 04/13/20 Magnesium Hydroxide (MILK OF MAGNESIA) 400 Mg/5 Ml Oral.susp, 400 MG PO PRN Q24HRS PRN for VOMITING, MISC 04/13/20 Metolazone (METOLAZONE) 2.5 Mg Tablet, 2.5 MG PO DAILY for COPD, #30 TAB 0 Re fills 04/13/20 Levothyroxine Sodium (LEVOTHYROXINE SODIUM) 100 Mcg Tablet, 1 TAB PO DAILY for HYPOTHYROIDISM, #30 TAB 5 Refills 04/13/20 Ibuprofen (Ibu) 400 Mg Tablet, 1 TAB PO Q6HRS for PAIN for 5 Days, #20 TAB 0 Refills NEEDED FOR PAIN 04/13/20 Divalproex Sodium (DIVALPROEX SODIUM) 500 Mg Tablet.dr, 3 TAB PO HS for SCHIZOAFFECTIVE DISORDER, #60 TAB 1 Refill 04/13/20 Docusate Sodium (DOCUSATE SODIUM) 100 Mg Capsule, 1 CAP PO HS for constipation for 7 Days, #7 CAP 0 Refills 04/13/20 Cochran Tar (COAL TAR) 100 Gm Tar, 100 GM MC MON WED SAT for Seborrhea Capitis, MISC 04/13/20 ELIZABETH AVILES III DO Feb 09, 2021 13:56
--- NOTE | 2021-02-09 14:36 | NUR ---
removed sanchez catheter 1130. bladder scan performed at 1230 showed 134ml of urine.
[2021-02-09 14:51] VITALS: BP 118/64
--- NOTE | 2021-02-09 15:54 | DS ---
DATE OF DISCHARGE: 02/09/2021 ADMITTING DIAGNOSES: Sepsis, severe dehydration, severe metabolic encephalopathy, renal failure, lactic acidosis, gram-positive stools. DISCHARGE DIAGNOSES: Resolving sepsis, resolving dehydration, resolving renal failure. CONSULTS: Nephrology, Infectious Disease and GI. PROCEDURES: None. HOSPITAL COURSE: The patient is a pleasant elderly male who presented from halfway with mental status change. He was noted to be severely dehydrated with a BUN of 39 and creatinine of 2.5. His blood pressure was 58/30. We admitted the patient. The above consults were obtained. We gave him IV fluids, IV antibiotics and trend his labs. Over the past couple days, he has slowly returned to his baseline. We plan to discharge back to his halfway. DISPOSITION: alf. ACTIVITY: As tolerated. DIET: Low sodium. DISCHARGE MEDICATIONS: Please see the MRAD. Vitamin D, coal tar shampoo, divalproex 1500 mg at bedtime, docusate, fluoxetine 10 a day, Lasix 20 a day, ibuprofen, Synthroid 100 a day, metolazone 2.5 daily, Nystatin cream p.r.n., Zyprexa 10 mg at bedtime, Invega 234/1.5 IM monthly, MiraLax 1 pack a day, potassium 10 a day and zinc 250 daily. TOTAL TIME: [address]: ROGELIO/jermaine TID: [id number]
--- NOTE | 2021-02-09 16:31 | NUR ---
pt discharged @1261 to [facility] . pt left by aleida. Called and gave report to Yina at [facility]R 2847.
[2021-03-07] MEDS ORDERED: PALIPERIDONE PALMITATE 234 MG IM SCH (09:00)
== END 2021-02-09 16:15 | DRG 871 ==
LOC: ER 16:08 → 1 WEST ICU 17:20 → 4 NORTH 02-08 15:15
PROVIDERS: ADMIT Internal Medicine; ATTEND Internal Medicine
DX: A41.9 Sepsis, unspecified organism (principal); G93.41 Metabolic encephalopathy; N17.0 Acute kidney failure with tubular necrosis; E46 Unspecified protein-calorie malnutrition; I13.0 Hypertensive heart and chronic kidney disease with heart failure and stage 1 through stage 4 chronic kidney disease, or unspecified chronic kidney disease; L03.115 Cellulitis of right lower limb; L03.116 Cellulitis of left lower limb; L97.929 Non-pressure chronic ulcer of unspecified part of left lower leg with unspecified severity; R65.20 Severe sepsis without septic shock; D53.9 Nutritional anemia, unspecified; E03.9 Hypothyroidism, unspecified; E86.0 Dehydration; F17.210 Nicotine dependence, cigarettes, uncomplicated; F20.9 Schizophrenia, unspecified; F32.A Depression, unspecified; I50.9 Heart failure, unspecified; J44.9 Chronic obstructive pulmonary disease, unspecified; N18.9 Chronic kidney disease, unspecified; Z20.822 Contact with and (suspected) exposure to COVID-19; Z82.49 Family history of ischemic heart disease and other diseases of the circulatory system; Z83.3 Family history of diabetes mellitus; Z86.16 Personal history of COVID-19; Z79.899 Other long term (current) drug therapy; Z68.29 Body mass index [BMI] 29.0-29.9, adult
CPT/HCPCS: 36415; 74022; 80048; 80053; 80069; 81001; 82274; 82607; 83540; 83550; 83605; 83735; 83880; 84100; 84484; 85025; 87040; 87086; 87426; 93005; 96361; 96365; J2248; J2543; J3490; J7030; J7040; J7060; P9612; U0003; U0005; 97530-GP; 99291-25; G0378

== ENCOUNTER 2021-03-06 09:23 | Inpatient (IN) | payer MEDICARE ==
[~2021-03-06] VITALS: Ht 182.9 cm; Wt 97.7 kg
--- NOTE | 2021-03-06 09:45 | PHYS DOC ---
Past Medical History Past Medical History: CHF, COPD, Depression, Hypothyroid, Schizophrenia Additional Past Medical Histor: COVID, LEFT LOWER LEG ULCER,seborrhea capitis,hypokalemia,back pain, thyroi Past Surgical History: No Surgical History Smoking Status: Former Smoker Alcohol Use: Occasionally General Adult EDM: Chief Complaint: SHORTNESS OF BREATH HPI: HPI: 66 yo M PMH CHF, COPD, depression, hypothyroidism, schizophrenia, recent COVID- 19, left lower leg ulcer, chronic cellulitis of both lower extremities and h/o sepsis/renal failure 02/2021, presents to the ED brought in by EMS after 911 was called twice (initially refused transfer) from [facility] [employer], concern for hypoxia in the upper 80's. Pt is not on any baseline oxygen and is a current tobacco user. Patient admits to some shortness of breath and increased work of breathing but denies any associated fever, chills or chest pain. Review of Systems: Review of Systems: Constitutional: Denies fever or chills. [] Eyes: Denies change in visual acuity. [] HENT: Denies nasal congestion or sore throat. [] Respiratory: Denies hemoptysis or cough Cardiovascular: Denies chest pain or edema. [] GI: Denies abdominal pain, nausea, vomiting, bloody stools or diarrhea. [] : Denies dysuria or hematuria Musculoskeletal: Denies back pain or joint pain. [] Integument: Denies diaphoresis or blistering lesions Neurologic: Denies headache, focal weakness or sensory changes. [] Endocrine: Denies polyuria or polydipsia. [] Lymphatic: Denies swollen glands. [] Psychiatric: Denies depression or anxiety. [] Heart Score: C/O Chest Pain: No Risk Factors: Risk Factors: DM, Current or recent (<one month) smoker, HTN, HLP, family history of CAD, obesity. Risk Scores: Score 0 - 3: 2.5% MACE over next 6 weeks - Discharge Home Score 4 - 6: 20.3% MACE over next 6 weeks - Admit for Clinical Observation Score 7 - 10: 72.7% MACE over next 6 weeks - Early Invasive Strategies Allergies: Allergies: Allergies Coded Allergies Type Severity Reaction Last Updated Verified animal dander Allergy Intermediate 04/12/20 Yes haloperidol Allergy Intermediate 04/12/20 Yes Physical Exam: PE: Constitutional: Well developed, well nourished, no acute distress, non-toxic appearance. HENT: Normocephalic, atraumatic, Eyes: EOMI, conjunctiva normal, no discharge. Neck: Normal range of motion, supple, Cardiovascular: S1/2 present, regular rhythm Lungs & Thorax: Speaking in full sentences, 88% RA, tight lung sounds with lower wheezing, some tachypnea at rest and w/speech Abdomen: soft, no tenderness, Skin: Warm, dry, no erythema, no rash. [] Back: No tenderness, no CVA tenderness. [] Extremities: bl hemosiderin deposition both legs-no open sores, bilateral lower extremity edema, right leg worse than left Neurologic: Alert and oriented X 3, normal motor function, normal sensory function, no focal deficits noted. [] Psychologic: Affect normal, judgement normal, mood normal. [] Current Patient Data: Vital Signs: Vital Signs Date Time Temp Pulse Resp B/P (MAP) Pulse Ox O2 Delivery O2 Flow Rate FiO2 03/06/21 09:33 97.7 89 22 116/65 (82) 94 Nasal Cannula 5.0 97.7 EKG: EKG: Sinus rhythm 85 bpm, no axis deviation, normal intervals, no T wave inversion, no ST elevation or ST depression Radiology/Procedures: Radiology/Procedures: [] IMAGING REPORT Signed PATIENT: KAMRON CRAFT ACCOUNT: [id number] : 1955 LOCATION: ER AGE: 66 SEX: M EXAM STATUS: PRE ER ORD. PHYSICIAN: CANDELARIO QUINTERO DO REASON: soa PROCEDURE: PORTABLE CHEST 1V Single view of the chest. 03/06/2021 9:48 AM Indication: Short of breath Comparison: Chest radiograph April 12, 2020 Findings: The patient is rotated. Elevation of left hemidiaphragm again noted with mild underlying atelectasis. No pneumothorax. No evidence of pleural effusion. Heart size is within normal limits. No new focal infiltrates are seen. No acute osseous changes are seen. IMPRESSION: 1. Persistent elevation of left hemidiaphragm with mild underlying atelectasis 2. No evidence of acute cardiopulmonary process is identified Electronically signed by: Fantasma Gillis MD (03/06/2021 10:12 AM) [id number] DICTATED and SIGNED BY: FANTASMA GILLIS MD DATE: 03/06/21 [id number] IMAGING REPORT Signed PATIENT: KAMRON CRAFT ACCOUNT: [id number] : 1955 LOCATION: ER AGE: 66 SEX: M EXAM STATUS: REG ER ORD. PHYSICIAN: CANDELARIO QUINTERO DO REASON: rle swelling >> left, r/o dvt PROCEDURE: VENOUS LOWER EXTREMITY RIGHT EXAMINATION: US DPLX VENOUS EXTREMITY LOWER RT (LOWER EXTREMITY VENOUS ULTRASOUND) CLINICAL HISTORY: Right lower extremity edema TECHNIQUE: Sonographic grayscale images obtained of the right lower extremity deep venous system with color flow Doppler, compression, and augmentation techniques as indicated. Images obtained and stored in a permanent archive. COMPARISON: None FINDINGS: No evidence of absent flow or incompressibility within the common femoral vein, femoral vein, or popliteal vein. Visualized calf veins appear patent on limited evaluation. IMPRESSION: No evidence of right lower extremity DVT. Electronically signed by: Duglas Pacheco DO (03/06/2021 12:01 PM) [id number] DICTATED and SIGNED BY: DUGLAS PACHECO DO DATE: 03/06/21 [id number] 0 Course & Med Decision Making: Course & Med Decision Making Pertinent Labs and Imaging studies reviewed. (See chart for details) Concern for COPD exacerbation in the setting of acute on chronic kidney disease. Tachypnea resolved after breathing treatments and steroids. Chest x-ray with no infiltrates. Patient hypoxic requiring nasal cannula, CO2 75 on blood gas. Patient with normal mentation, GCS 15. Patient has venous stasis with bilateral lower extremity swelling. Patient does not know his medications- unsure if he is on any anticoagulants stating "I'll never walk again." Right lower showing venous duplex ultrasound showed no evidence of DVT. Will admit for further medical management. Patient stable at time of admission and agrees with this plan. I have spoken with the patient and/or caregivers. I have explained the patient's condition, diagnosis and treatment plan based on the information available to me at this time. I have answered the patient's and/or caregivers questions and answered any concerns. The patient and/or caregivers have as good an understanding of the patient's diagnosis, condition and treatment plan as can be expected at this point. The patient has been stabilized within the capability of the emergency department. The patient will be transported for further care and management or will be moved to an observation or inpatient service. I have communicated with the staff or medical practitioner taking over this patient's care. Dragon Disclaimer: Dragon Disclaimer: This electronic medical record was generated, in whole or in part, using a voice recognition dictation system. Departure Departure Impression: Primary Impression: COPD exacerbation Additional Impressions: Hypoxia [id number] kidney injury Disposition: ADMITTED INPATIENT Admitting Physician: ADAMARIS (Dr. Padilla) Condition: STABLE Referrals: SADI CARTWRIGHT MD (PCP) CANDELARIO QUINTERO DO Mar 06, 2021 09:45
[2021-03-06] MEDS ORDERED: IPRATRPIUM/ALBUTEROL 0.5/2.5MG 3 ML NEBU. NEB ONE (10:00)
[2021-03-06] MEDS ORDERED: DEXAMETHASONE SOD PHOS 20 MG/5 ML VIAL. IV ONE (10:00)
--- NOTE | 2021-03-06 10:14 | RAD ---
Single view of the chest. 03/06/2021 9:48 AM Indication: Short of breath Comparison: Chest radiograph April 12, 2020 Findings: The patient is rotated. Elevation of left hemidiaphragm again noted with mild underlying at electasis. No pneumothorax. No evidence of pleural effusion. Heart size is within normal limits. No n ew focal infiltrates are seen. No acute osseous changes are seen. IMPRESSION: 1. Persistent elevation of left hemidiaphragm with mild underlying atelectasis 2. No evidence of acute cardiopulmonary process is identified Electronically signed by: Fantasma Vyas MD (03/06/2021 10:12 AM) [id number]
[2021-03-06 10:23] LABS: BASE EXCESS COOX 14 mmol/L (-3-3); HCO3 COOX 42 mmol/L (21-28); PCO2 COOX 75 mmHg (35-46); PO2 COOX 88 mmHg (65-108); SAT O2 COOX 96 % (92-99)
[2021-03-06 10:25] LABS: BASO % 1 % (0-3); EOS # 0.5 x10^3/uL (0.0-0.7); EOS % 7 % (0-3); HEMATOCRIT 35.9 % (39.0-53.0); HEMOGLOBIN 11.8 g/dL (13.0-17.5); LYMPH # 1.6 x10^3/uL (1.0-4.8); LYMPH % 24 % (24-48); MEAN CORPUSCULAR HEMOGLOBIN 33 pg (25-35); MEAN CORPUSCULAR HGB CONC 33 g/dL (31-37); MEAN CORPUSCULAR VOLUME 99 fL (79-100); MONO # 0.7 x10^3/uL (0.0-1.1); MONO % 10 % (0-9); NEUT # 3.9 x10^3/uL (1.8-7.7); NEUT % 59 % (31-73); PLATELET COUNT 182 x10^3/uL (140-400); RED BLOOD COUNT 3.62 x10^6/uL (4.30-5.70); RED CELL DISTRIBUTION WIDTH 14.7 % (11.5-14.5); WHITE BLOOD COUNT 6.7 x10^3/uL (4.0-11.0)
[2021-03-06 10:34] LABS: CALCIUM 9.4 mg/dL (8.5-10.1); GFR 33.7; POTASSIUM 3.9 mmol/L (3.5-5.1)
[2021-03-06 10:36] LABS: INFLUENZA A PATIENT NEGATIVE (NEGATIVE); INFLUENZA B PATIENT NEGATIVE (NEGATIVE)
[2021-03-06 10:40] LABS: ALBUMIN 2.9 g/dL (3.4-5.0); ALBUMIN/GLOBULIN RATIO 0.7 (1.0-1.7); TOTAL BILIRUBIN 0.3 mg/dL (0.2-1.0); TOTAL PROTEIN 7.3 g/dL (6.4-8.2)
[2021-03-06] MEDS ORDERED: IV RINGERS,LACTATED 500ML 500 ML IV ONE (11:15)
[2021-03-06] MEDS ORDERED: IV RINGERS,LACTATED 500ML 1,000 ML IV ONE (11:30)
--- NOTE | 2021-03-06 12:04 | RAD ---
EXAMINATION: US DPLX VENOUS EXTREMITY LOWER RT (LOWER EXTREMITY VENOUS ULTRASOUND) CLINICAL HISTORY: Right lower extremity edema TECHNIQUE: Sonographic grayscale images obtained of the right lower extremity deep venous system with color flow Doppler, compression, and augmentation techniques as indicated. Images obtained and stor ed in a permanent archive. COMPARISON: None FINDINGS: No evidence of absent flow or incompressibility within the common femoral vein, femoral vein, or popl iteal vein. Visualized calf veins appear patent on limited evaluation. IMPRESSION: No evidence of right lower extremity DVT. Electronically signed by: Duglas Christina DO (03/06/2021 12:01 PM) [id number]
--- NOTE | 2021-03-06 12:36 | PDOC1 ---
History and Physical Date of Admission Date of Admission DATE: 03/06/21 TIME: 12:23 Identification/Chief Complaint Chief Complaint Shortness of breath Source Source: Chart review, Patient History of Present Illness History of Present Illness Patient 66-year-old male with past medical history COPD not on home oxygen, CHF, hypothyroidism, schizophrenia, who presents as ED via EMS with complaints of shortness of breath. He reports associated chronic cough productive of white sputum. Upon EMS arrival he was hypoxic with O2 saturation in the upper 80s. Patient states he is on oxygen compressor at home but is not sure how high this goes. Upon arrival in the ED he was placed on 3 L nasal cannula with improvement in oxygen saturation. Labs on admission showed WBC 6.7, hemoglobin 11.8, hematocrit 35.9, BUN 37, creatinine 2.0, albumin 2.9, PCO2 75. Chest x- ray showed persistent elevation of left hemidiaphragm with mild underlying atelectasis, but no evidence of acute cardiopulmonary process is identified. He was treated with Decadron and duo nebulizers with some mild improvement. He reports 30 year history of tobacco use, and is still smokes about 6 cigarettes daily. Upon my evaluation he is mostly concerned about why his legs have not worked over the past 3 years. He receives physical [facility] at the [facility], but appears dissatisfied with their level of care. He denies any fever, chills, nausea, vomiting, or diarrhea. Will admit patient for further medical management. Past Medical History Cardiovascular: CHF, HTN Pulmonary: COPD GI: Constipation Psych: Schizophrenia Endocrine: Hypothyroidism Past Surgical History Past Surgical History: No pertinent history Family History Family History: Hypertension Social History Smoke: <1 pack per day ALCOHOL: none Drugs: None Current Problem List Problem List Problems Medical Problems: (1) Pabwm-ob-elgcttm kidney injury Status: Acute (2) COPD exacerbation Status: Acute (3) Hypoxia Status: Acute Current Medications Current Medications Current Medications Dexamethasone Sodium Phosphate (Decadron) 10 mg 1X ONCE IV Last administered on 03/06/21at 11:14; Start 03/06/21 at 10:00; Stop 03/06/21 at 10:04; Status DC Albuterol/ Ipratropium (Duoneb) 9 ml 1X ONCE NEB Last administered on 03/06/21at 10:04; Start 03/06/21 at 10:00; Stop 03/06/21 at 10:04; Status DC Ringer's Solution 500 ml @ 500 mls/hr 1X ONCE IV ; Start 03/06/21 at 11:15; Stop 03/06/21 at 12:14; Status UNV Ringer's Solution 1,000 ml @ 500 mls/hr 1X ONCE IV Last administered on at 11:27; Start 03/06/21 at 11:30; Stop 03/06/21 at 13:29 Active Scripts Active Reported [zinc] 250 Mg PO DAILY Klor-Con M20 (Potassium Chloride) 20 Meq Tab.er.prt 20 Meq PO BID Miralax (Polyethylene Glycol 3350) 17 Gm Powd.pack 1 Packet PO Q12HR PRN dissolve in water Miralax (Polyethylene Glycol 3350) 17 Gm Powd.pack 1 Pkt PO DAILY Nystatin 15 Gm Cream..g. 1 Elliott TP BID PRN Duoneb 0.5-3(2.5) Mg/3 Ml (Albuterol/Ipratropium) 3 Ml Ampul.neb 3 Ml NEB Q6HRS PRN Invega Sustenna (Paliperidone Palmitate) 234 Mg/1.5 Ml Disp.syrin 234 Mg IM [id number] Furosemide 20 Mg Tablet 3 Tab PO DAILY [cholecalciferol ] 2,000 Units PO DAILY Prozac (Fluoxetine Hcl) 10 Mg Capsule 1 Cap PO DAILY Klor-Con 10 (Potassium Chloride) 10 Meq Tablet.er 1 Tab PO DAILY 30 Days Olanzapine 10 Mg Tablet 1 Tab PO QHS Milk Of Magnesia (Magnesium Hydroxide) 400 Mg/5 Ml Oral.susp 400 Mg PO PRN Q24HRS PRN Metolazone 2.5 Mg Tablet 2.5 Mg PO DAILY Levothyroxine Sodium 100 Mcg Tablet 1 Tab PO DAILY Ibu (Ibuprofen) 400 Mg Tablet 1 Tab PO Q6HRS 5 Days NEEDED FOR PAIN Divalproex Sodium 500 Mg Tablet. 3 Tab PO HS Docusate Sodium 100 Mg Capsule 1 Cap PO HS 7 Days [place] Tar 100 Gm Tar 100 Gm MC TUE WED SAT Allergies Allergies: Coded Allergies: animal dander (Verified Allergy, Intermediate, 04/12/20) haloperidol (Verified Allergy, Intermediate, 04/12/20) ROS Review of System GENERAL: No history of weight change, weakness or fevers. SKIN: No bruising, hair changes or rashes. EYES: No blurred, double or loss of vision. NOSE AND THROAT: No history of nosebleeds, hoarseness or sore throat. HEART: Denies chest pain, denies palpitations. LUNGS: Shortness of breath, cough. Denies hemoptysis. GASTROINTESTINAL: Denies nausea, vomiting, abdominal pain. GENITOURINARY: Denies dysuria, frequency, urgency, hematuria. NEUROLOGIC: Denies history of numbness, tingling, tremor or weakness. PSYCHIATRIC: Denies anxiety, denies depression. ENDOCRINE: No history of heat or cold intolerance, polyuria or polydipsia. EXTREMITIES: Musculoskeletal weakness in bilateral lower extremities. Denies joint pain, pain on walking or stiffness. Physical Exam Physical Exam General: Alert, Oriented X3, Cooperative, No acute distress HEENT: PERRLA, EOMI Lungs: Faint expiratory wheezes, Normal air movement Heart: RRR, no murmurs Cardiovascular: S1, S2 Abdomen: Normal bowel sounds, Soft, No tenderness Extremities: No clubbing, No cyanosis Skin: Bilateral hemosiderin deposits to bilateral lower extremities, dry skin. Neuro: Normal speech, Normal tone, Sensation intact Psych/Mental Status: Mental status NL, Mood NL Vitals Vitals Vital Signs Date Time Temp Pulse Resp B/P (MAP) Pulse Ox O2 Delivery O2 Flow Rate FiO2 03/06/21 11:28 87 Nasal Cannula 3.0 03/06/21 11:23 78 20 101/64 (76) 03/06/21 09:33 97.7 97.7 Labs Labs Laboratory Tests Test 03/06/21 09:44 03/06/21 10:15 03/06/21 10:19 White Blood Count 6.7 x10^3/uL (4.0-11.0) Red Blood Count 3.62 x10^6/uL (4.30-5.70) Hemoglobin 11.8 g/dL (13.0-17.5) Hematocrit 35.9 % (39.0-53.0) Mean Corpuscular Volume 99 fL (79-100) Mean Corpuscular Hemoglobin 33 pg (25-35) Mean Corpuscular Hemoglobin Concent 33 g/dL (31-37) Red Cell Distribution Width 14.7 % (11.5-14.5) Platelet Count 182 x10^3/uL (140-400) Neutrophils (%) (Auto) 59 % (31-73) Lymphocytes (%) (Auto) 24 % (24-48) Monocytes (%) (Auto) 10 % (0-9) Eosinophils (%) (Auto) 7 % (0-3) Basophils (%) (Auto) 1 % (0-3) Neutrophils # (Auto) 3.9 x10^3/uL (1.8-7.7) Lymphocytes # (Auto) 1.6 x10^3/uL (1.0-4.8) Monocytes # (Auto) 0.7 x10^3/uL (0.0-1.1) Eosinophils # (Auto) 0.5 x10^3/uL (0.0-0.7) Basophils # (Auto) 0.0 x10^3/uL (0.0-0.2) Sodium Level 143 mmol/L (136-145) Potassium Level 3.9 mmol/L (3.5-5.1) Chloride Level 100 mmol/L (98-107) Carbon Dioxide Level 42 mmol/L (21-32) Anion Gap 1 (6-14) Blood Urea Nitrogen 37 mg/dL (8-26) Creatinine 2.0 mg/dL (0.7-1.3) Estimated GFR (Cockcroft-Gault) 33.7 BUN/Creatinine Ratio 19 (6-20) Glucose Level 84 mg/dL (70-99) Lactic Acid Level 1.1 mmol/L (0.4-2.0) Calcium Level 9.4 mg/dL (8.5-10.1) Total Bilirubin 0.3 mg/dL (0.2-1.0) Aspartate Amino Transf (AST/SGOT) 13 U/L (15-37) Alanine Aminotransferase (ALT/SGPT) 18 U/L (16-63) Alkaline Phosphatase 60 U/L (46-116) Creatine Kinase 159 U/L (39-308) Troponin I High Sensitivity 64 ng/L (4-75) QO-Nqs-W-Type Natriuretic Peptide 139 pg/mL (0-124) Total Protein 7.3 g/dL (6.4-8.2) Albumin 2.9 g/dL (3.4-5.0) Albumin/Globulin Ratio 0.7 (1.0-1.7) Influenza Type A Antigen Negative (NEGATIVE) Influenza Type B Antigen Negative (NEGATIVE) O2 Saturation 96 % (92-99) Arterial Blood pH 7.37 (7.35-7.45) Arterial Blood pCO2 at Patient Temp 75 mmHg (35-46) Arterial Blood pO2 at Patient Temp 88 mmHg (65-108) Arterial Blood HCO3 42 mmol/L (21-28) Arterial Blood Base Excess 14 mmol/L (-3-3) Carbon Monoxide, Quantitative % (0.0-1.9) FiO2 40 Laboratory Tests Test 03/06/21 09:44 03/06/21 10:15 03/06/21 10:19 White Blood Count 6.7 x10^3/uL (4.0-11.0) Red Blood Count 3.62 x10^6/uL (4.30-5.70) Hemoglobin 11.8 g/dL (13.0-17.5) Hematocrit 35.9 % (39.0-53.0) Mean Corpuscular Volume 99 fL (79-100) Mean Corpuscular Hemoglobin 33 pg (25-35) Mean Corpuscular Hemoglobin Concent 33 g/dL (31-37) Red Cell Distribution Width 14.7 % (11.5-14.5) Platelet Count 182 x10^3/uL (140-400) Neutrophils (%) (Auto) 59 % (31-73) Lymphocytes (%) (Auto) 24 % (24-48) Monocytes (%) (Auto) 10 % (0-9) Eosinophils (%) (Auto) 7 % (0-3) Basophils (%) (Auto) 1 % (0-3) Neutrophils # (Auto) 3.9 x10^3/uL (1.8-7.7) Lymphocytes # (Auto) 1.6 x10^3/uL (1.0-4.8) Monocytes # (Auto) 0.7 x10^3/uL (0.0-1.1) Eosinophils # (Auto) 0.5 x10^3/uL (0.0-0.7) Basophils # (Auto) 0.0 x10^3/uL (0.0-0.2) Sodium Level 143 mmol/L (136-145) Potassium Level 3.9 mmol/L (3.5-5.1) Chloride Level 100 mmol/L (98-107) Carbon Dioxide Level 42 mmol/L (21-32) Anion Gap 1 (6-14) Blood Urea Nitrogen 37 mg/dL (8-26) Creatinine 2.0 mg/dL (0.7-1.3) Estimated GFR (Cockcroft-Gault) 33.7 BUN/Creatinine Ratio 19 (6-20) Glucose Level 84 mg/dL (70-99) Lactic Acid Level 1.1 mmol/L (0.4-2.0) Calcium Level 9.4 mg/dL (8.5-10.1) Total Bilirubin 0.3 mg/dL (0.2-1.0) Aspartate Amino Transf (AST/SGOT) 13 U/L (15-37) Alanine Aminotransferase (ALT/SGPT) 18 U/L (16-63) Alkaline Phosphatase 60 U/L (46-116) Creatine Kinase 159 U/L (39-308) Troponin I High Sensitivity 64 ng/L (4-75) MA-Cbc-Q-Type Natriuretic Peptide 139 pg/mL (0-124) Total Protein 7.3 g/dL (6.4-8.2) Albumin 2.9 g/dL (3.4-5.0) Albumin/Globulin Ratio 0.7 (1.0-1.7) Influenza Type A Antigen Negative (NEGATIVE) Influenza Type B Antigen Negative (NEGATIVE) O2 Saturation 96 % (92-99) Arterial Blood pH 7.37 (7.35-7.45) Arterial Blood pCO2 at Patient Temp 75 mmHg (35-46) Arterial Blood pO2 at Patient Temp 88 mmHg (65-108) Arterial Blood HCO3 42 mmol/L (21-28) Arterial Blood Base Excess 14 mmol/L (-3-3) Carbon Monoxide, Quantitative % (0.0-1.9) FiO2 40 Images Images [facility] [address] [place] [address] IMAGING REPORT Signed PATIENT: KAMRON CRAFT ACCOUNT: [id number] : 1955 LOCATION: ER AGE: 66 SEX: M EXAM STATUS: PRE ER ORD. PHYSICIAN: CANDELARIO QUINTERO DO REASON: soa PROCEDURE: PORTABLE CHEST 1V Single view of the chest. 03/06/2021 9:48 AM Indication: Short of breath Comparison: Chest radiograph April 12, 2020 Findings: The patient is rotated. Elevation of left hemidiaphragm again noted with mild underlying atelectasis. No pneumothorax. No evidence of pleural effusion. Heart size is within normal limits. No new focal infiltrates are seen. No acute osseous changes are seen. IMPRESSION: 1. Persistent elevation of left hemidiaphragm with mild underlying atelectasis 2. No evidence of acute cardiopulmonary process is identified Electronically signed by: Fantasma Vyas MD (03/06/2021 10:12 AM) [id number] VTE Prophylaxis Ordered VTE Prophylaxis Devices: No VTE Pharmacological Prophylaxi: Yes Assessment/Plan Assessment/Plan Acute respiratory failure with hypoxia Acute COPD exacerbation Acute on chronic renal failure Physical debility Normocytic anemia CHF Schizophrenia Depression Moderate malnutrition Plan: We will continue treatment with Solu-Medrol 80 mg every 8 hours over the next 24 hours, then I imagine you can switch to oral prednisone. DuoNebs every 4 hours Low suspicion for viral or bacterial infection at this time. Suspect COPD exacerbation is due to continued tobacco use. Patient counseled on tobacco cessation If patient does not continue to improve will consult pulmonology Judicious IV fluids, avoid nephrotoxins. We will obtain echocardiogram PT/OT Continue home medications FEN - Cardiac diet PPX - Lovenox FULL CODE Dispo - inpatient for above Surrogate decision-maker is Jone Parson Justifications for Admission Other Justification YAZMIN JOHNSON MD Mar 06, 2021 12:36
[2021-03-06] MEDS ORDERED: hydrALAZINE 20 MG/ML VIAL. IVP PRN (13:30)
[2021-03-06 13:45] VITALS: BP 120/69
[2021-03-06] MEDS ORDERED: ONDANSETRON PF 4 MG/2 ML VIAL. IVP PRN (13:45)
[2021-03-06] MEDS ORDERED: MAGNESIUM HYDROXIDE 2,400 MG/30 ML ORAL.SUSP. PO PRN (13:45)
[2021-03-06] MEDS ORDERED: MAG HYDROX/ALUMINUM HYD/SIMETH 30 ML ORAL.SUSP PO PRN (13:45)
[2021-03-06] MEDS ORDERED: ACETAMINOPHEN 325 MG TABLET. PO PRN (13:45)
[2021-03-06] MEDS ORDERED: HYDROcodone/APAP 5/325MG 1 TAB TABLET PO PRN (13:45)
[2021-03-06] MEDS ORDERED: CALCIUM CARBONATE 500 MG TAB.CHEW PO PRN (13:45)
[2021-03-06] MEDS ORDERED: ZOLPIDEM 5 MG TABLET. PO PRN (13:45)
--- NOTE | 2021-03-06 13:45 | NUR ---
patient arrived via gurney. Alert and oriented x 4. O2 at 5 L via nasal cannula sats staying at 94 %. moist cough. Lower extremities scaly, dry, and discolored. dorsalis pedis pulses present bilateral. Speech clear can talk fast at times reminder to slow down when talking.Incontinent of bowels uses urinals.makes needs known.
[2021-03-06 14:00] LABS: BILIRUBIN,URINE NEGATIVE (NEG); CLARITY,URINE CLEAR; COLOR,URINE YELLOW; NITRITE,URINE NEGATIVE (NEG); PROTEIN,URINE NEGATIVE (NEG-TRACE)
[2021-03-06] MEDS ORDERED: metOLazone 2.5 MG TABLET PO SCH (14:00)
[2021-03-06] MEDS: FLUoxetine HCL 10 MG CAPSULE PO SCH (14:13)
[2021-03-06] MEDS: methylPREDNISolone SOD SUCC PF 125 MG/2 ML VIAL. IV SCH ×2 (14:13→20:38)
[2021-03-06] MEDS: ENOXAPARIN 40 MG/0.4 ML SYRINGE. SQ SCH (14:13)
[2021-03-06] MEDS: FUROSEMIDE 20 MG TABLET PO SCH (14:15)
[2021-03-06 14:32] LABS: BACTERIA,URINE 0 /HPF (0-FEW); RBC,URINE 0 /HPF (0-2); WBC,URINE RARE /HPF (0-4)
[2021-03-06 15:00] VITALS: BP 113/67
[2021-03-06] MEDS: IPRATRPIUM/ALBUTEROL 0.5/2.5MG 3 ML NEBU. NEB SCH ×2 (15:56→18:20)
--- NOTE | 2021-03-06 15:58 | EKG ---
[facility] [address] [place] [address] Test Date: 2021-03-06 Test Time: 10:21:22 Pat Name: KAMRON CRAFT Department: Room: 442 Gender: M Credit Control Assistant: [id number] : 1955 Requested By: CANDELARIO QUINTERO Order Number: [id number] Reading MD: Arsalan Sprague Measurements Intervals [place] Rate: 85 P: [place]: QRS: 23 QRSD: 78 T: 46 QT: 340 QTc: 410 Interpretive Statements SINUS RHYTHM Electronically Signed On 03-08-2021 13:33:22 CDT by Arsalan Sprague
[2021-03-06] MEDS: POTASSIUM CHLORIDE 20 MEQ TABLET.ER. PO SCH (17:06)
[2021-03-06 19:00] VITALS: BP 99/53
[2021-03-06] MEDS: DIVALPROEX DELAYED RELEASE 500 MG TABLET.DR. PO SCH (20:37)
[2021-03-06] MEDS: OLANZapine 5 MG TABLET PO SCH (20:37)
[2021-03-06 23:00] VITALS: BP 106/54
[2021-03-07 03:00] VITALS: BP 103/49
[2021-03-07] MEDS: LEVOTHYROXINE 100 MCG TABLET PO SCH (05:38)
[2021-03-07] MEDS: methylPREDNISolone SOD SUCC PF 125 MG/2 ML VIAL. IV SCH ×3 (05:38→21:52)
[2021-03-07 07:00] VITALS: BP 112/68
[2021-03-07 07:13] LABS: BASO % 0 % (0-3); EOS % 0 % (0-3); HEMOGLOBIN 10.6 g/dL (13.0-17.5); LYMPH # 0.7 x10^3/uL (1.0-4.8); LYMPH % 7 % (24-48); MEAN CORPUSCULAR HEMOGLOBIN 33 pg (25-35); MEAN CORPUSCULAR HGB CONC 33 g/dL (31-37); MEAN CORPUSCULAR VOLUME 99 fL (79-100); MONO # 0.8 x10^3/uL (0.0-1.1); MONO % 8 % (0-9); NEUT # 8.5 x10^3/uL (1.8-7.7); NEUT % 85 % (31-73); PLATELET COUNT 167 x10^3/uL (140-400); RED BLOOD COUNT 3.24 x10^6/uL (4.30-5.70); RED CELL DISTRIBUTION WIDTH 14.1 % (11.5-14.5); WHITE BLOOD COUNT 10.1 x10^3/uL (4.0-11.0)
[2021-03-07] MEDS: IPRATRPIUM/ALBUTEROL 0.5/2.5MG 3 ML NEBU. NEB SCH ×4 (07:22→18:20)
[2021-03-07 07:28] LABS: CALCIUM 9.2 mg/dL (8.5-10.1); GFR 33.7; POTASSIUM 3.3 mmol/L (3.5-5.1)
--- NOTE | 2021-03-07 08:26 | PDOC ---
[employer] PROGRESS NOTE Date of Service DOS: DATE: 03/07/21 TIME: 08:26 Chief Complaint Chief Complaint Acute respiratory failure with hypoxia Acute COPD exacerbation Acute on chronic renal failure Physical debility Normocytic anemia Chronic CHF Schizophrenia/Schizoaffective disorder - on invega sustena Depression Moderate malnutrition Hypothyrodism H/o COVID in 04/2020. Plan: We will continue treatment with Solu-Medrol 80 mg every 8 hours over the next 24 hours, then I imagine you can switch to oral prednisone. DuoNebs every 4 hours Low suspicion for viral or bacterial infection at this time. Suspect COPD exacerbation is due to continued tobacco use. Patient counseled on tobacco cessation If patient does not continue to improve will consult pulmonology Judicious IV fluids, avoid nephrotoxins. We will obtain echocardiogram PT/OT Continue home medications FEN - Cardiac diet PPX - Lovenox FULL CODE Dispo - inpatient for above Surrogate decision-maker is Jone Parson History of Present Illness History of Present Illness Patient 66-year-old male with past medical history COPD not on home oxygen, CHF, hypothyroidism, schizophrenia, who presents to ED via EMS from [facility] with complaints of shortness of breath. He reports associated chronic cough productive of white sputum. Upon EMS arrival he was hypoxic with O2 saturation in the upper 80s. Patient states he is on oxygen compressor at home but is not sure how high this goes. Upon arrival in the ED he was placed on 3 L nasal cannula with improvement in oxygen saturation. Labs on admission showed WBC 6.7, hemoglobin 11.8, hematocrit 35.9, BUN 37, creatinine 2.0, albumin 2.9, PCO2 75. Chest x-ray showed persistent elevation of left hemidiaphragm with mild underlying atelectasis, but no evidence of acute cardiopulmonary process is identified. He was treated with Decadron and duo nebulizers with some mild improvement. He reports 30 year history of tobacco use, and is still smokes about 6 cigarettes daily. Upon my evaluation he is mostly concerned about why his legs have not worked over the past 3 years. He receives physical therapy at the [facility], but appears dissatisfied with their level of care. He denies any fever, chills, nausea, vomiting, or diarrhea. Will admit patient for further medical management. Afebrile overnight. Requiring 5L/min O2 to maintain saturations 91%. He has no complaints except he is short of breath, wants eggs and wants to sleep. Has blanket over his head. Vitals/I&O Vitals/I&O: Vital Signs Date Time Temp Pulse Resp B/P (MAP) Pulse Ox O2 Delivery O2 Flow Rate FiO2 03/07/21 07:23 94 Nasal Cannula 5.0 03/07/21 03:00 97.7 96 16 103/49 (67) 97.7 I & O 03/06/21 03/06/21 03/07/21 15:00 23:00 07:00 Intake Total 500 ml 120 ml 320 ml Output Total 550 ml 300 ml Balance 500 ml -430 ml 20 ml Physical Exam General: Alert Lungs: Clear Labs Labs: Laboratory Tests Test 03/06/21 09:44 03/06/21 10:15 03/06/21 10:19 03/06/21 12:14 White Blood Count 6.7 x10^3/uL (4.0-11.0) Red Blood Count 3.62 x10^6/uL (4.30-5.70) Hemoglobin 11.8 g/dL (13.0-17.5) Hematocrit 35.9 % (39.0-53.0) Mean Corpuscular Volume 99 fL (79-100) Mean Corpuscular Hemoglobin 33 pg (25-35) Mean Corpuscular Hemoglobin Concent 33 g/dL (31-37) Red Cell Distribution Width 14.7 % (11.5-14.5) Platelet Count 182 x10^3/uL (140-400) Neutrophils (%) (Auto) 59 % (31-73) Lymphocytes (%) (Auto) 24 % (24-48) Monocytes (%) (Auto) 10 % (0-9) Eosinophils (%) (Auto) 7 % (0-3) Basophils (%) (Auto) 1 % (0-3) Neutrophils # (Auto) 3.9 x10^3/uL (1.8-7.7) Lymphocytes # (Auto) 1.6 x10^3/uL (1.0-4.8) Monocytes # (Auto) 0.7 x10^3/uL (0.0-1.1) Eosinophils # (Auto) 0.5 x10^3/uL (0.0-0.7) Basophils # (Auto) 0.0 x10^3/uL (0.0-0.2) Sodium Level 143 mmol/L (136-145) Potassium Level 3.9 mmol/L (3.5-5.1) Chloride Level 100 mmol/L (98-107) Carbon Dioxide Level 42 mmol/L (21-32) Anion Gap 1 (6-14) Blood Urea Nitrogen 37 mg/dL (8-26) Creatinine 2.0 mg/dL (0.7-1.3) Estimated GFR (Cockcroft-Gault) 33.7 BUN/Creatinine Ratio 19 (6-20) Glucose Level 84 mg/dL (70-99) Lactic Acid Level 1.1 mmol/L (0.4-2.0) Calcium Level 9.4 mg/dL (8.5-10.1) Total Bilirubin 0.3 mg/dL (0.2-1.0) Aspartate Amino Transf (AST/SGOT) 13 U/L (15-37) Alanine Aminotransferase (ALT/SGPT) 18 U/L (16-63) Alkaline Phosphatase 60 U/L (46-116) Creatine Kinase 159 U/L (39-308) Troponin I High Sensitivity 64 ng/L (4-75) YR-Fmh-U-Type Natriuretic Peptide 139 pg/mL (0-124) Total Protein 7.3 g/dL (6.4-8.2) Albumin 2.9 g/dL (3.4-5.0) Albumin/Globulin Ratio 0.7 (1.0-1.7) Influenza Type A Antigen Negative (NEGATIVE) Influenza Type B Antigen Negative (NEGATIVE) O2 Saturation 96 % (92-99) Arterial Blood pH 7.37 (7.35-7.45) Arterial Blood pCO2 at Patient Temp 75 mmHg (35-46) Arterial Blood pO2 at Patient Temp 88 mmHg (65-108) Arterial Blood HCO3 42 mmol/L (21-28) Arterial Blood Base Excess 14 mmol/L (-3-3) Carbon Monoxide, Quantitative % (0.0-1.9) FiO2 40 Urine Collection Type Unknown Urine Color Yellow Urine Clarity Clear Urine pH 7.0 (<5.0-8.0) Urine Specific Otto 1.010 (1.000-1.030) Urine Protein Negative mg/dL (NEG-TRACE) Urine Glucose (UA) Negative mg/dL (NEG) Urine Ketones (Stick) Negative mg/dL (NEG) Urine Blood Negative (NEG) Urine Nitrite Negative (NEG) Urine Bilirubin Negative (NEG) Urine Urobilinogen Dipstick 1.0 mg/dL (0.2 mg/dL) Urine Leukocyte Esterase Negative (NEG) Urine RBC 0 /HPF (0-2) Urine WBC Rare /HPF (0-4) Urine Squamous Epithelial Cells Few /LPF Urine Bacteria 0 /HPF (0-FEW) SARS-CoV-2 Antigen (Rapid) Negative (NEGATIVE) Test 03/07/21 06:55 White Blood Count 10.1 x10^3/uL (4.0-11.0) Red Blood Count 3.24 x10^6/uL (4.30-5.70) Hemoglobin 10.6 g/dL (13.0-17.5) Hematocrit 32.0 % (39.0-53.0) Mean Corpuscular Volume 99 fL (79-100) Mean Corpuscular Hemoglobin 33 pg (25-35) Mean Corpuscular Hemoglobin Concent 33 g/dL (31-37) Red Cell Distribution Width 14.1 % (11.5-14.5) Platelet Count 167 x10^3/uL (140-400) Neutrophils (%) (Auto) 85 % (31-73) Lymphocytes (%) (Auto) 7 % (24-48) Monocytes (%) (Auto) 8 % (0-9) Eosinophils (%) (Auto) 0 % (0-3) Basophils (%) (Auto) 0 % (0-3) Neutrophils # (Auto) 8.5 x10^3/uL (1.8-7.7) Lymphocytes # (Auto) 0.7 x10^3/uL (1.0-4.8) Monocytes # (Auto) 0.8 x10^3/uL (0.0-1.1) Eosinophils # (Auto) 0.0 x10^3/uL (0.0-0.7) Basophils # (Auto) 0.0 x10^3/uL (0.0-0.2) Sodium Level 138 mmol/L (136-145) Potassium Level 3.3 mmol/L (3.5-5.1) Chloride Level 96 mmol/L (98-107) Carbon Dioxide Level 36 mmol/L (21-32) Anion Gap 6 (6-14) Blood Urea Nitrogen 41 mg/dL (8-26) Creatinine 2.0 mg/dL (0.7-1.3) Estimated GFR (Cockcroft-Gault) 33.7 Glucose Level 209 mg/dL (70-99) Calcium Level 9.2 mg/dL (8.5-10.1) C-Reactive Protein, Quantitative 5.6 mg/L (0-3.3) Procalcitonin < 0.10 ng/mL (0.00-0.10) Assessment and Plan Assessmemt and Plan Problems Medical Problems: (1) Eucca-oi-wtdljfs kidney injury Status: Acute (2) COPD exacerbation Status: Acute (3) Hypoxia Status: Acute Comment Review of Relevant I have reviewed the following items merlene (where applicable) has been applied. Medications: Current Medications Medications (Trade) Dose Ordered Sig/Dread Route PRN Reason Start Time Stop Time Status Last Admin Dose Admin Dexamethasone Sodium Phosphate (Decadron) 10 mg 1X ONCE IV 03/06/21 10:00 03/06/21 10:04 DC 03/06/21 11:14 Albuterol/ Ipratropium (Duoneb) 9 ml 1X ONCE NEB 03/06/21 10:00 03/06/21 10:04 DC 03/06/21 10:04 Ringer's Solution 1,000 ml @ 500 mls/hr 1X ONCE IV 03/06/21 11:30 03/06/21 13:29 DC 03/06/21 11:27 Methylprednisolone Sodium Succinate (SOLU-Medrol 125MG VIAL) 80 mg Q8HRS IV 03/06/21 14:00 03/07/21 05:38 Albuterol/ Ipratropium (Duoneb) 3 ml RTQID NEB 03/06/21 16:00 03/07/21 07:22 Divalproex Sodium (Depakote) 1,500 mg HS PO 03/06/21 21:00 03/06/21 20:37 Fluoxetine HCl (PROzac) 10 mg DAILY PO 03/06/21 14:00 03/06/21 14:13 Furosemide (Lasix) 60 mg DAILY PO 03/06/21 14:00 03/06/21 14:15 Levothyroxine Sodium (Synthroid) 100 mcg DAILY06 PO 03/07/21 06:00 03/07/21 05:38 Metolazone (Zaroxolyn) 2.5 mg DAILY PO 03/06/21 14:00 03/06/21 14:13 Potassium Chloride (Klor-Con) 20 meq BIDWMEALS PO 03/06/21 17:00 03/06/21 17:06 Olanzapine (ZyPREXA) 10 mg QHS PO 03/06/21 21:00 03/06/21 20:37 Enoxaparin Sodium (Lovenox 40mg Syringe) 40 mg Q24H SQ 03/06/21 14:00 03/06/21 14:13 Justifications for Admission General Conditions Other justification for admit: COPD exacerbation, acute on chronic renal failure Other Justification CATHIE GROVES MD Mar 07, 2021 08:26
[2021-03-07] MEDS: FUROSEMIDE 20 MG TABLET PO SCH (09:39)
[2021-03-07] MEDS: FLUoxetine HCL 10 MG CAPSULE PO SCH (09:40)
[2021-03-07] MEDS: POTASSIUM CHLORIDE 20 MEQ TABLET.ER. PO SCH ×2 (09:40→16:30)
[2021-03-07 11:00] VITALS: BP 106/55
[2021-03-07] MEDS: ENOXAPARIN 40 MG/0.4 ML SYRINGE. SQ SCH (14:00)
[2021-03-07 15:00] VITALS: BP 102/57
[2021-03-07 19:00] VITALS: BP 102/59
[2021-03-07] MEDS: OLANZapine 5 MG TABLET PO SCH (21:44)
[2021-03-07] MEDS: DIVALPROEX DELAYED RELEASE 500 MG TABLET.DR. PO SCH (21:45)
[2021-03-07 23:00] VITALS: BP 120/70
[2021-03-08 03:00] VITALS: BP 112/59
[2021-03-08 07:00] VITALS: BP 99/54
[2021-03-08] MEDS: LEVOTHYROXINE 100 MCG TABLET PO SCH (07:26)
[2021-03-08] MEDS: methylPREDNISolone SOD SUCC PF 125 MG/2 ML VIAL. IV SCH (07:27)
[2021-03-08] MEDS: IPRATRPIUM/ALBUTEROL 0.5/2.5MG 3 ML NEBU. NEB SCH ×4 (07:33→18:31)
[2021-03-08 07:54] LABS: BASO % 0 % (0-3); EOS % 0 % (0-3); HEMATOCRIT 31.6 % (39.0-53.0); HEMOGLOBIN 10.5 g/dL (13.0-17.5); LYMPH % 8 % (24-48); MEAN CORPUSCULAR HEMOGLOBIN 33 pg (25-35); MEAN CORPUSCULAR HGB CONC 33 g/dL (31-37); MEAN CORPUSCULAR VOLUME 99 fL (79-100); MONO # 0.6 x10^3/uL (0.0-1.1); MONO % 5 % (0-9); NEUT # 10.1 x10^3/uL (1.8-7.7); NEUT % 87 % (31-73); PLATELET COUNT 173 x10^3/uL (140-400); RED BLOOD COUNT 3.18 x10^6/uL (4.30-5.70); RED CELL DISTRIBUTION WIDTH 14.6 % (11.5-14.5); WHITE BLOOD COUNT 11.6 x10^3/uL (4.0-11.0)
[2021-03-08 08:30] LABS: CREATININE 1.9 mg/dL (0.7-1.3); GFR 35.8; POTASSIUM 3.6 mmol/L (3.5-5.1)
[2021-03-08] MEDS: FLUoxetine HCL 10 MG CAPSULE PO SCH (08:52)
[2021-03-08] MEDS: FUROSEMIDE 20 MG TABLET PO SCH (08:52)
[2021-03-08] MEDS: POTASSIUM CHLORIDE 20 MEQ TABLET.ER. PO SCH ×2 (08:53→16:27)
--- NOTE | 2021-03-08 09:29 | PDOC ---
[employer] PROGRESS NOTE Date of Service DOS: DATE: 03/08/21 TIME: 09:21 Chief Complaint Chief Complaint Acute respiratory failure with hypoxia Acute COPD exacerbation Acute on chronic renal failure Physical debility Normocytic anemia Chronic CHF Schizophrenia/Schizoaffective disorder - on invega sustena Depression Moderate malnutrition Unable to walk- prior CVA per patient in 2019 vs med side effect. PT asked to sign off. H/o COVID in 04/2020. Plan: We will continue treatment with Solu-Medrol 80 mg every 8 hours over the next 24 hours, then switch to oral prednisone. DuoNebs every 4 hours, pulmicort BID Low suspicion for viral or bacterial infection at this time. Suspect COPD exacerbation is due to continued tobacco use. Patient counseled on tobacco cessation If patient does not continue to improve will consult pulmonology Judicious IV fluids, avoid nephrotoxins. We will obtain echocardiogram PT/OT Continue home medications FEN - Cardiac diet PPX - Lovenox FULL CODE Dispo - inpatient for above Surrogate decision-maker is Jone Parson History of Present Illness History of Present Illness Mr Leavitt is 66-year-old male with past medical history COPD not on home oxygen, CHF, prior CVA 2019?, schizophrenia, who presents to ED via EMS from [facility] with complaints of shortness of breath. He reports associated chronic cough productive of white sputum. Upon EMS arrival he was hypoxic with O2 saturation in the upper 80s. Patient states he is on oxygen compressor at home but is not sure how high this goes. Upon arrival in the ED he was placed on 3 L nasal cannula with improvement in oxygen saturation. Labs on admission showed WBC 6.7, hemoglobin 11.8, hematocrit 35.9, BUN 37, creatinine 2.0, albumin 2.9, PCO2 75. Chest x-ray showed persistent elevation of left hemidiaphragm with mild underlying atelectasis, but no evidence of acute cardiopulmonary process is identified. He was treated with Decadron and duo nebulizers with some mild improvement. He reports 30 year history of tobacco use, and is still smokes about 6 cigarettes daily. Upon my evaluation he is mostly concerned about why his legs have not worked over the past 3 years. He receives physical therapy at the [facility], but appears dissatisfied with their level of care. He denies any fever, chills, nausea, vomiting, or diarrhea. Will admit patient for further medical management. 03/07: Afebrile overnight. Requiring 5L/min O2 to maintain saturations 91%. He has no complaints except he is short of breath, wants eggs and wants to sleep. Has blanket over his head. PT recommends he is likely at baseline (since 2018). 03/08: Creatinine 1.9. Afebrile overnight. O2 needs but the same. He is asking for a cigarette and if he can start working with therapy. He does note he has not been out of bed since 2019 due to a stroke or medication side effect, he thinks maybe both. Recently had wheelchair privileges taken away due to to his shortness of breath on transitions and need for O2. Vitals/I&O Vitals/I&O: Vital Signs Date Time Temp Pulse Resp B/P (MAP) Pulse Ox O2 Delivery O2 Flow Rate FiO2 03/08/21 07:34 Nasal Cannula 5.0 03/08/21 07:00 98.2 70 18 99/54 (69) 95 98.2 I & O 03/07/21 03/07/21 03/08/21 15:00 23:00 07:00 Output Total 400 ml 550 ml Balance -400 ml -550 ml Physical Exam General: Alert Lungs: Wheezing Labs Labs: Laboratory Tests Test 03/08/21 07:30 White Blood Count 11.6 x10^3/uL (4.0-11.0) Red Blood Count 3.18 x10^6/uL (4.30-5.70) Hemoglobin 10.5 g/dL (13.0-17.5) Hematocrit 31.6 % (39.0-53.0) Mean Corpuscular Volume 99 fL (79-100) Mean Corpuscular Hemoglobin 33 pg (25-35) Mean Corpuscular Hemoglobin Concent 33 g/dL (31-37) Red Cell Distribution Width 14.6 % (11.5-14.5) Platelet Count 173 x10^3/uL (140-400) Neutrophils (%) (Auto) 87 % (31-73) Lymphocytes (%) (Auto) 8 % (24-48) Monocytes (%) (Auto) 5 % (0-9) Eosinophils (%) (Auto) 0 % (0-3) Basophils (%) (Auto) 0 % (0-3) Neutrophils # (Auto) 10.1 x10^3/uL (1.8-7.7) Lymphocytes # (Auto) 1.0 x10^3/uL (1.0-4.8) Monocytes # (Auto) 0.6 x10^3/uL (0.0-1.1) Eosinophils # (Auto) 0.0 x10^3/uL (0.0-0.7) Basophils # (Auto) 0.0 x10^3/uL (0.0-0.2) Sodium Level 141 mmol/L (136-145) Potassium Level 3.6 mmol/L (3.5-5.1) Chloride Level 98 mmol/L (98-107) Carbon Dioxide Level 39 mmol/L (21-32) Anion Gap 4 (6-14) Blood Urea Nitrogen 55 mg/dL (8-26) Creatinine 1.9 mg/dL (0.7-1.3) Estimated GFR (Cockcroft-Gault) 35.8 Glucose Level 109 mg/dL (70-99) Calcium Level 9.0 mg/dL (8.5-10.1) Assessment and Plan Assessmemt and Plan Problems Medical Problems: (1) Ulqlr-an-bvwtsuw kidney injury Status: Acute (2) COPD exacerbation Status: Acute (3) Hypoxia Status: Acute Comment Review of Relevant I have reviewed the following items merlene (where applicable) has been applied. Justifications for Admission General Conditions Other justification for admit: COPD exacerbation, acute on chronic renal failure Other Justification CATHIE GROVES MD Mar 08, 2021 09:29
[2021-03-08] MEDS ORDERED: guaiFENesin DM 200MG/20MG 10 ML SYRUP PO PRN (09:30)
[2021-03-08] MEDS ORDERED: MINERAL OIL/PETROLATUM TOPICAL CREAM 113GM JAR. TP PRN (09:30)
[2021-03-08] MEDS ORDERED: NICOTINE 21MG PATCH. TD PRN (09:30)
[2021-03-08] MEDS ORDERED: ALBUTEROL SULFATE 2.5 MG/3 ML NEBU. NEB PRN (09:30)
[2021-03-08 11:00] VITALS: BP 109/59
[2021-03-08] MEDS: ENOXAPARIN 40 MG/0.4 ML SYRINGE. SQ SCH (13:01)
[2021-03-08 15:00] VITALS: BP 129/66
[2021-03-08] MEDS: BUDESONIDE 0.5 MG/2 ML NEBU. NEB SCH (18:31)
[2021-03-08 19:00] VITALS: BP 95/49
[2021-03-08 23:00] VITALS: BP 107/65
[2021-03-09] MEDS: DIVALPROEX DELAYED RELEASE 500 MG TABLET.DR. PO SCH ×2 (01:04→21:52)
[2021-03-09] MEDS: OLANZapine 5 MG TABLET PO SCH ×2 (01:04→21:52)
[2021-03-09 03:00] VITALS: BP 107/69
[2021-03-09 07:00] VITALS: BP 107/58
[2021-03-09] MEDS: BUDESONIDE 0.5 MG/2 ML NEBU. NEB SCH ×2 (07:35→20:17)
[2021-03-09] MEDS: IPRATRPIUM/ALBUTEROL 0.5/2.5MG 3 ML NEBU. NEB SCH ×4 (07:35→20:17)
[2021-03-09] MEDS: POTASSIUM CHLORIDE 20 MEQ TABLET.ER. PO SCH ×2 (07:47→16:05)
[2021-03-09] MEDS: predniSONE 20 MG TABLET PO SCH (07:47)
[2021-03-09] MEDS: FLUoxetine HCL 10 MG CAPSULE PO SCH (07:47)
[2021-03-09] MEDS: FUROSEMIDE 20 MG TABLET PO SCH (07:48)
[2021-03-09 07:50] LABS: BASO % 0 % (0-3); EOS % 0 % (0-3); HEMATOCRIT 35.3 % (39.0-53.0); HEMOGLOBIN 11.5 g/dL (13.0-17.5); LYMPH # 1.9 x10^3/uL (1.0-4.8); LYMPH % 18 % (24-48); MEAN CORPUSCULAR HEMOGLOBIN 32 pg (25-35); MEAN CORPUSCULAR HGB CONC 32 g/dL (31-37); MEAN CORPUSCULAR VOLUME 100 fL (79-100); MONO # 1.4 x10^3/uL (0.0-1.1); MONO % 14 % (0-9); NEUT % 68 % (31-73); PLATELET COUNT 178 x10^3/uL (140-400); RED BLOOD COUNT 3.54 x10^6/uL (4.30-5.70); RED CELL DISTRIBUTION WIDTH 14.7 % (11.5-14.5); WHITE BLOOD COUNT 10.3 x10^3/uL (4.0-11.0)
[2021-03-09] MEDS: LEVOTHYROXINE 100 MCG TABLET PO SCH (07:56)
[2021-03-09 08:12] LABS: CALCIUM 9.6 mg/dL (8.5-10.1); CREATININE 1.7 mg/dL (0.7-1.3); GFR 40.7; POTASSIUM 3.1 mmol/L (3.5-5.1)
--- NOTE | 2021-03-09 10:51 | CARD ---
MR#: [id number] Date of Study: 03/09/2021 Ordering Physician: YAZMIN JOHNSON, Referring Physician: YAZMIN JOHNSON Tech: Les Andrews [facility] APPROVED REPORT EXAM: Two-dimensional and M-mode echocardiogram with Doppler and color Doppler. Other Information Quality : FairHR: 89bpm Rhythm : NSRTechnically limited study due to body habitus and smoking. INDICATION COPD Congestive Heart Failure RISK FACTORS Smoking Schizophrenia 2D DIMENSIONS Left Atrium(2D)3.6 (1.6-4.0cm)IVSd0.8 (0.7-1.1cm) Aortic Root(2D)3.7 (2.0-3.7cm)LVDd4.5 (3.9-5.9cm) LVOT Diameter2.4 (1.8-2.4cm)PWd1.0 (0.7-1.1cm) LVDs2.7 (2.5-4.0cm)FS (%) 40.1 % SV66.7 mlLVEF(%)70.9 (>50%) Aortic Valve AoV Peak Doron.150.0cm/sAoV VTI26.7cm AO Peak GR.9.0mmHgLVOT Peak Doron.137.4cm/s AO Mean GR.5mmHgAVA (VMAX)4.22cm2 Mitral Valve MV E Mwsmyfag17.1cm/sMV E Peak Gr.5mmHg MV DECEL [id number] A Otyychar574.6cm/s MV E Mean Gr.3mmHgE/A Ratio0.7 Pulmonary Valve PV Peak Rveunpsy683.0cm/s Tricuspid Valve TR P. [id number]/sTR Peak Gr.13mmHg Pulmonary Vein S1 Zcnoyphi99.6cm/sD2 Psnwklcx67.4cm/s LEFT VENTRICLE The left ventricle is normal size. There is normal left ventricular wall thickness. The left ventricu lar systolic function is normal. The ejection fraction is estimated at 65-70%. There is normal LV seg mental wall motion. Transmitral Doppler flow pattern is Grade I-abnormal relaxation pattern. No left ventricle thrombus noted on this study. There is no ventricular septal defect visualized. There is no left ventricular aneurysm. There is no mass noted in the left ventricle. RIGHT VENTRICLE The right ventricle is normal size. There is normal right ventricular wall thickness. The right ventr icular systolic function is normal. ATRIA The left atrium size is normal. The right atrium size is normal. The interatrial septum is intact wit h no evidence for an atrial septal defect or patent foramen ovale as noted on 2-D or Doppler imaging. AORTIC VALVE The aortic valve is normal in structure and function. Doppler and Color Flow revealed no significant aortic regurgitation. There is no significant aortic valvular stenosis. There is no aortic valvular v egetation. MITRAL VALVE Mitral annular calcification is mild. There is no evidence of mitral valve prolapse. There is no mitr al valve stenosis. Doppler and Color Flow revealed no mitral valve regurgitation noted. TRICUSPID VALVE The tricuspid valve is normal in structure and function. Doppler and Color Flow revealed trace tricus pid regurgitation. There is no tricuspid valve prolapse or vegetation. There is no tricuspid valve st enosis. PULMONIC VALVE The pulmonic valve is not well seen. Doppler and Color Flow revealed no pulmonic valvular regurgitati on. There is no pulmonic valvular stenosis. GREAT VESSELS The aortic root is normal in size. The ascending aorta is normal in size. The IVC is normal in size a nd collapses >50% with inspiration. PERICARDIAL EFFUSION There is no pleural effusion. There is no evidence of significant pericardial effusion. Critical Notification Critical Value: No <Conclusion> The left ventricular systolic function is normal. The ejection fraction is estimated at 65-70%. There is normal LV segmental wall motion. Transmitral Doppler flow pattern is Grade I-abnormal relaxation pattern. Trace tricuspid regurgitation. There is no evidence of significant pericardial effusion. Signed by : Arsalan Sprague, Electronically Approved : 03/09/2021 10:51:09
[2021-03-09 11:00] VITALS: BP 104/59
--- NOTE | 2021-03-09 11:29 | PDOC ---
[employer] PROGRESS NOTE Date of Service DOS: DATE: 03/09/21 TIME: 11:26 Chief Complaint Chief Complaint Acute respiratory failure with hypoxia Acute COPD exacerbation Acute on chronic renal failure Physical debility Normocytic anemia Chronic CHF Schizophrenia/Schizoaffective disorder - on invega sustena Depression Moderate malnutrition Unable to walk- prior CVA per patient in 2019 vs med side effect. PT asked to sign off. H/o COVID in 04/2020. History of Present Illness History of Present Illness 03/09/2021 Patient seen and examined Discussed with the case sealer Chart reviewed Discussed with RN Mr Leavitt is 66-year-old male with past medical history COPD not on home oxygen, CHF, prior CVA 2019?, schizophrenia, who presents to ED via EMS from with complaints of shortness of breath. He reports associated chronic cough productive of white sputum. Upon EMS arrival he was hypoxic with O2 saturation in the upper 80s. Patient states he is on oxygen compressor at home but is not sure how high this goes. Upon arrival in the ED he was placed on 3 L nasal cannula with improvement in oxygen saturation. Labs on admission showed WBC 6.7, hemoglobin 11.8, hematocrit 35.9, BUN 37, creatinine 2.0, albumin 2.9, PCO2 75. Chest x-ray showed persistent elevation of left hemidiaphragm with mild underlying atelectasis, but no evidence of acute cardiopulmonary process is identified. He was treated with Decadron and duo nebulizers with some mild improvement. He reports 30 year history of tobacco use, and is still smokes about 6 cigarettes daily. Upon my evaluation he is mostly concerned about why his legs have not worked over the past 3 years. He receives physical therapy at the [facility], but appears dissatisfied with their level of care. He denies any fever, chills, nausea, vomiting, or diarrhea. Will admit patient for further medical management. 03/07: Afebrile overnight. Requiring 5L/min O2 to maintain saturations 91%. He has no complaints except he is short of breath, wants eggs and wants to sleep. Has blanket over his head. PT recommends he is likely at baseline (since 2018). 03/08: Creatinine 1.9. Afebrile overnight. O2 needs but the same. He is asking for a cigarette and if he can start working with therapy. He does note he has not been out of bed since 2019 due to a stroke or medication side effect, he thinks maybe both. Recently had wheelchair privileges taken away due to to his shortness of breath on transitions and need for O2. Vitals/I&O Vitals/I&O: Vital Signs Date Time Temp Pulse Resp B/P (MAP) Pulse Ox O2 Delivery O2 Flow Rate FiO2 03/09/21 11:00 98.4 64 18 104/59 (74) 93 Room Air 98.4 03/09/21 08:00 5.0 I & O 03/08/21 03/08/21 03/09/21 14:59 22:59 06:59 Output Total 700 ml Balance -700 ml Physical Exam General: Alert Lungs: Wheezing Labs Labs: Laboratory Tests Test 03/09/21 07:15 White Blood Count 10.3 x10^3/uL (4.0-11.0) Red Blood Count 3.54 x10^6/uL (4.30-5.70) Hemoglobin 11.5 g/dL (13.0-17.5) Hematocrit 35.3 % (39.0-53.0) Mean Corpuscular Volume 100 fL (79-100) Mean Corpuscular Hemoglobin 32 pg (25-35) Mean Corpuscular Hemoglobin Concent 32 g/dL (31-37) Red Cell Distribution Width 14.7 % (11.5-14.5) Platelet Count 178 x10^3/uL (140-400) Neutrophils (%) (Auto) 68 % (31-73) Lymphocytes (%) (Auto) 18 % (24-48) Monocytes (%) (Auto) 14 % (0-9) Eosinophils (%) (Auto) 0 % (0-3) Basophils (%) (Auto) 0 % (0-3) Neutrophils # (Auto) 7.0 x10^3/uL (1.8-7.7) Lymphocytes # (Auto) 1.9 x10^3/uL (1.0-4.8) Monocytes # (Auto) 1.4 x10^3/uL (0.0-1.1) Eosinophils # (Auto) 0.0 x10^3/uL (0.0-0.7) Basophils # (Auto) 0.0 x10^3/uL (0.0-0.2) Sodium Level 143 mmol/L (136-145) Potassium Level 3.1 mmol/L (3.5-5.1) Chloride Level 96 mmol/L (98-107) Carbon Dioxide Level 42 mmol/L (21-32) Anion Gap 5 (6-14) Blood Urea Nitrogen 64 mg/dL (8-26) Creatinine 1.7 mg/dL (0.7-1.3) Estimated GFR (Cockcroft-Gault) 40.7 Glucose Level 76 mg/dL (70-99) Calcium Level 9.6 mg/dL (8.5-10.1) Assessment and Plan Assessmemt and Plan Problems Medical Problems: (1) Htbbv-ms-kjkijwe kidney injury Status: Acute (2) COPD exacerbation Status: Acute (3) Hypoxia Status: Acute Acute respiratory failure with hypoxia Acute COPD exacerbation Acute on chronic renal failure Physical debility Normocytic anemia Chronic CHF Schizophrenia/Schizoaffective disorder - on invega sustena Depression Moderate malnutrition Unable to walk- prior CVA per patient in 2018 vs med side effect. PT asked to sign off. H/o COVID in 04/2020. Plan: Hope to discharge back to his facility soon, for now continue the following summer We will continue treatment with Solu-Medrol 80 mg every 8 hours over the next 24 hours, then switch to oral prednisone. DuoNebs every 4 hours, pulmicort BID Low suspicion for viral or bacterial infection at this time. Suspect COPD exacerbation is due to continued tobacco use. Patient counseled on tobacco cessation If patient does not continue to improve will consult pulmonology Judicious IV fluids, avoid nephrotoxins. We will obtain echocardiogram PT/OT Continue home medications FEN - Cardiac diet PPX - Lovenox FULL CODE Dispo - inpatient for above Surrogate decision-maker is Jone Parson Comment Review of Relevant I have reviewed the following items merlene (where applicable) has been applied. Medications: Current Medications Medications (Trade) Dose Ordered Sig/Dread Route PRN Reason Start Time Stop Time Status Last Admin Dose Admin Budesonide (Pulmicort) 0.5 mg RTBID NEB 03/08/21 20:00 03/09/21 07:35 Prednisone (Prednisone) 40 mg DAILY PO 03/09/21 09:00 03/14/21 08:59 03/09/21 07:47 Justifications for Admission General Conditions Other justification for admit: COPD exacerbation, acute on chronic renal failure Other Justification ELIZABETH AVILES III, DO Mar 09, 2021 11:29
[2021-03-09] MEDS ORDERED: METH4TAB2 PO (11:31)
--- NOTE | 2021-03-09 11:33 | SNU/HH DC ---
DISCHARGE ORDERS DISCHARGE INFORMATION: FINAL DIAGNOSIS Problems Medical Problems: (1) Wnayz-jq-pzsyhne kidney injury Status: Acute (2) COPD exacerbation Status: Acute (3) Hypoxia Status: Acute CONDITION ON DISCHARGE: Stable CODE STATUS: Code Status: Full LONGTERM: SNF STAY <30 DAYS: Yes HOSPICE: HOSPICE: No HOSPICE EVAL & TREAT: No LTAC: ADMIT TO LTAC: No POST DISCHARGE ORDERS: ACTIVITY ORDERS: Resume previous activity DIET AFTER DISCHARGE: Cardiac TREATMENT/EQUIPMENT ORDERS: Physical Therapy For: Evalulation/Treatment Occupational Therapy For: Evaluation/Treatment DISCHARGE MEDICATIONS: Home Meds Active Scripts Methylprednisolone (MEDROL) 4 Mg Tab.ds.pk, 1 PKG PO UD for copd, #1 PKG Prov:CASTLE,NIAL K III DO 03/09/21 Reported Medications [zinc] No Conflict Check, 250 MG PO DAILY for zinc deficiency 04/14/20 Potassium Chloride (KLOR-CON M20) 20 Meq Tab.er.prt, 20 MEQ PO BID for hypokalemia, TAB.SR 04/14/20 Polyethylene Glycol 3350 (MIRALAX) 17 Gm Powd.pack, 1 PACKET PO Q12HR PRN for CONSTIPATION, #30 PACKET 0 Refills dissolve in water 04/14/20 Polyethylene Glycol 3350 (MIRALAX) 17 Gm Powd.pack, 1 PKT PO DAILY for constipation, PKT 04/14/20 Nystatin (NYSTATIN) 15 Gm Cream..g., 1 RASHAD TP BID PRN for redness/gaulding r/t candidias, #30 GM 04/14/20 Ipratropium/Albuterol Sulfate (DUONEB 0.5-3(2.5) MG/3 ML) 3 Ml Ampul.neb, 3 ML NEB Q6HRS PRN for low oxygen saturation, EACH 04/14/20 Paliperidone Palmitate (INVEGA SUSTENNA) 234 Mg/1.5 Ml Disp.syrin, 234 MG IM [id number] for scizoaffective disorder, DIS.SYR 04/14/20 Furosemide (FUROSEMIDE) 20 Mg Tablet, 3 TAB PO DAILY for heart failure, #90 TAB 3 Refills 04/14/20 [cholecalciferol ] No Conflict Check, 2000 UNITS PO DAILY for vitamin D deficiency 04/14/20 Fluoxetine Hcl (PROZAC) 10 Mg Capsule, 1 CAP PO DAILY for DEPRESSION, #30 CAP 1 Refill 04/13/20 Potassium Chloride (KLOR-CON 10) 10 Meq Tablet.er, 1 TAB PO DAILY for HEART FAILURE for 30 Days, #30 TAB 0 Refills 04/13/20 Olanzapine (OLANZAPINE) 10 Mg Tablet, 1 TAB PO QHS for SCHIZOAFFECTIVE DISORDER, #30 TAB 04/13/20 Magnesium Hydroxide (MILK OF MAGNESIA) 400 Mg/5 Ml Oral.susp, 400 MG PO PRN Q24HRS PRN for VOMITING, MISC 04/13/20 Metolazone (METOLAZONE) 2.5 Mg Tablet, 2.5 MG PO DAILY for COPD, #30 TAB 0 Refills 04/13/20 Levothyroxine Sodium (LEVOTHYROXINE SODIUM) 100 Mcg Tablet, 1 TAB PO DAILY for HYPOTHYROIDISM, #30 TAB 5 Refills 04/13/20 Ibuprofen (Ibu) 400 Mg Tablet, 1 TAB PO Q6HRS for PAIN for 5 Days, #20 TAB 0 Refills NEEDED FOR PAIN 04/13/20 Divalproex Sodium (DIVALPROEX SODIUM) 500 Mg Tablet.dr, 3 TAB PO HS for [place] IZOAFFECTIVE DISORDER, #60 TAB 1 Refill 04/13/20 Docusate Sodium (DOCUSATE SODIUM) 100 Mg Capsule, 1 CAP PO HS for constipation for 7 Days, #7 CAP 0 Refills 04/13/20 [place] Tar (COAL TAR) 100 Gm Tar, 100 GM MC MON TUE SAT for Seborrhea Capitis, MISC 04/13/20 ELIZBAETH AVIELS III DO Mar 09, 2021 11:33
--- NOTE | 2021-03-09 11:33 | SNU/HH DC ---
DISCHARGE ORDERS DISCHARGE INFORMATION: FINAL DIAGNOSIS Problems Medical Problems: (1) Jzzan-jo-zowppbj kidney injury Status: Acute (2) COPD exacerbation Status: Acute (3) Hypoxia Status: Acute CONDITION ON DISCHARGE: Stable CODE STATUS: Code Status: Full FCI: SNF STAY <30 DAYS: No HOSPICE: HOSPICE: No HOSPICE EVAL & TREAT: No LTAC: ADMIT TO LTAC: No POST DISCHARGE ORDERS: ACTIVITY ORDERS: Resume previous activity DIET AFTER DISCHARGE: Cardiac DISCHARGE MEDICATIONS: Home Meds Active Scripts Methylprednisolone (MEDROL) 4 Mg Tab.ds.pk, 1 PKG PO UD for copd, #1 PKG Prov:CASTLE,NIAL K III DO 03/09/21 Reported Medications [zinc] No Conflict Check, 250 MG PO DAILY for zinc deficiency 04/14/20 Potassium Chloride (KLOR-CON M20) 20 Meq Tab.er.prt, 20 MEQ PO BID for hypokalemia, TAB.SR 04/14/20 Polyethylene Glycol 3350 (MIRALAX) 17 Gm Powd.pack, 1 PACKET PO Q12HR PRN for CONSTIPATION, #30 PACKET 0 Refills dissolve in water 04/14/20 Polyethylene Glycol 3350 (MIRALAX) 17 Gm Powd.pack, 1 PKT PO DAILY for constipation, PKT 04/14/20 Nystatin (NYSTATIN) 15 Gm Cream..g., 1 RASHAD TP BID PRN for redness/gaulding r/t candidias, #30 GM 04/14/20 Ipratropium/Albuterol Sulfate (DUONEB 0.5-3(2.5) MG/3 ML) 3 Ml Ampul.neb, 3 ML NEB Q6HRS PRN for low oxygen saturation, EACH 04/14/20 Paliperidone Palmitate (INVEGA SUSTENNA) 234 Mg/1.5 Ml Disp.syrin, 234 MG IM [id number] for scizoaffective disorder, DIS.SYR 04/14/20 Furosemide (FUROSEMIDE) 20 Mg Tablet, 3 TAB PO DAILY for heart failure, #90 TAB 3 Refills 04/14/20 [cholecalciferol ] No Conflict Check, 2000 UNITS PO DAILY for vitamin D deficiency 04/14/20 Fluoxetine Hcl (PROZAC) 10 Mg Capsule, 1 CAP PO DAILY for DEPRESSION, #30 CAP 1 Refill 04/13/20 Potassium Chloride (KLOR-CON 10) 10 Meq Tablet.er, 1 TAB PO DAILY for HEART FAILURE for 30 Days, #30 TAB 0 Refills 04/13/20 Olanzapine (OLANZAPINE) 10 Mg Tablet, 1 TAB PO QHS for SCHIZOAFFECTIVE DISORDER, #30 TAB 04/13/20 Magnesium Hydroxide (MILK OF MAGNESIA) 400 Mg/5 Ml Oral.susp, 400 MG PO PRN Q24HRS PRN for VOMITING, MISC 04/13/20 Metolazone (METOLAZONE) 2.5 Mg Tablet, 2.5 MG PO DAILY for COPD, #30 TAB 0 Refills 04/13/20 Levothyroxine Sodium (LEVOTHYROXINE SODIUM) 100 Mcg Tablet, 1 TAB PO DAILY for HYPOTHYROIDISM, #30 TAB 5 Refills 04/13/20 Ibuprofen (Ibu) 400 Mg Tablet, 1 TAB PO Q6HRS for PAIN for 5 Days, #20 TAB 0 Refills NEEDED FOR PAIN 04/13/20 Divalproex Sodium (DIVALPROEX SODIUM) 500 Mg Tablet.dr, 3 TAB PO HS for SCHIZOAFFECTIVE DISORDER, #60 TAB 1 Refill 04/13/20 Docusate Sodium (DOCUSATE SODIUM) 100 Mg Capsule, 1 CAP PO HS for constipation for 7 Days, #7 CAP 0 Refills 04/13/20 [place] Tar (COAL TAR) 100 Gm Tar, 100 GM MC MON WED SAT for Seborrhea Capitis, MISC 04/13/20 ELIZABETH AVILES III DO Mar 09, 2021 11:33
[2021-03-09] MEDS: ENOXAPARIN 40 MG/0.4 ML SYRINGE. SQ SCH (14:00)
[2021-03-09 15:00] VITALS: BP 123/62
[2021-03-09 19:35] VITALS: BP 113/64
[2021-03-09 23:05] VITALS: BP 103/58
[2021-03-10 03:31] VITALS: BP 118/82
[2021-03-10 04:55] LABS: BASO % 0 % (0-3); EOS % 0 % (0-3); HEMATOCRIT 32.6 % (39.0-53.0); HEMOGLOBIN 10.9 g/dL (13.0-17.5); LYMPH # 1.7 x10^3/uL (1.0-4.8); LYMPH % 17 % (24-48); MEAN CORPUSCULAR HEMOGLOBIN 33 pg (25-35); MEAN CORPUSCULAR HGB CONC 34 g/dL (31-37); MEAN CORPUSCULAR VOLUME 99 fL (79-100); MONO # 1.3 x10^3/uL (0.0-1.1); MONO % 13 % (0-9); NEUT # 7.1 x10^3/uL (1.8-7.7); NEUT % 70 % (31-73); PLATELET COUNT 170 x10^3/uL (140-400); RED CELL DISTRIBUTION WIDTH 14.7 % (11.5-14.5)
[2021-03-10 05:06] LABS: CREATININE 1.6 mg/dL (0.7-1.3); GFR 43.6; POTASSIUM 3.3 mmol/L (3.5-5.1)
[2021-03-10] MEDS: LEVOTHYROXINE 100 MCG TABLET PO SCH (06:31)
[2021-03-10 07:00] VITALS: BP 98/54
[2021-03-10] MEDS: BUDESONIDE 0.5 MG/2 ML NEBU. NEB SCH (07:27)
[2021-03-10] MEDS: IPRATRPIUM/ALBUTEROL 0.5/2.5MG 3 ML NEBU. NEB SCH ×3 (07:27→15:42)
[2021-03-10] MEDS: FLUoxetine HCL 10 MG CAPSULE PO SCH (08:33)
[2021-03-10] MEDS: POTASSIUM CHLORIDE 20 MEQ TABLET.ER. PO SCH ×2 (08:33→15:51)
[2021-03-10] MEDS: FUROSEMIDE 20 MG TABLET PO SCH (08:33)
[2021-03-10] MEDS: predniSONE 20 MG TABLET PO SCH (08:37)
--- NOTE | 2021-03-10 09:23 | PDOC3 ---
[facility]-Discharge Summary Date of Admission: Date of Admission: Mar 06, 2021 Date of Discharge: Date of Discharge: Mar 10, 2021 Admission Diagnosis: Problems: (1) Enuod-cw-rrvmlwd kidney injury (2) COPD exacerbation (3) Hypoxia Hospital Course: Hospital Course: Chief Complaint Chief Complaint Acute respiratory failure with hypoxia Acute COPD exacerbation Acute on chronic renal failure Physical debility Normocytic anemia Chronic CHF Schizophrenia/Schizoaffective disorder - on invega sustena Depression Moderate malnutrition Unable to walk- prior CVA per patient in 2019 vs med side effect. PT asked to sign off. H/o COVID in 04/2020. History of Present Illness History of Present Illness 03/10 patient evaluated examined at bedside. Doing well no major complaints. Covid rapid and PCR negative. He can discharge today back to facility. I spent greater than 30 minutes in the planning coordination to [id number] with the patient in regards to discharge. 03/09/2021 Patient seen and examined Discussed with the rehabilitation caseworker Chart reviewed Discussed with RN Mr Leavitt is 66-year-old male with past medical history COPD not on home oxygen, CHF, prior CVA 2019?, schizophrenia, who presents to ED via EMS from [facility] with complaints of shortness of breath. He reports associated chronic cough productive of white sputum. Upon EMS arrival he was hypoxic with O2 saturation in the upper 80s. Patient states he is on oxygen compressor at home but is not sure how high this goes. Upon arrival in the ED he was placed on 3 L nasal cannula with improvement in oxygen saturation. Labs on admission showed WBC 6.7, hemoglobin 11.8, hematocrit 35.9, BUN 37, creatinine 2.0, albumin 2.9, PCO2 75. Chest x-ray showed persistent elevation of left hemidiaphragm with mild underlying atelectasis, but no evidence of acute cardiopulmonary process is identified. He was treated with Decadron and duo nebulizers with some mild improvement. He reports 30 year history of tobacco use, and is still smokes about 6 cigarettes daily. Upon my evaluation he is mostly concerned about why his legs have not worked over the past 3 years. He receives physical therapy at the [facility], but appears dissatisfied with their level of care. He denies any fever, chills, nausea, vomiting, or diarrhea. Will admit patient for further medical management. 03/07: Afebrile overnight. Requiring 5L/min O2 to maintain saturations 91%. He has no complaints except he is short of breath, wants eggs and wants to sleep. Has blanket over his head. PT recommends he is likely at baseline (since 2018). 03/08: Creatinine 1.9. Afebrile overnight. O2 needs but the same. He is asking for a cigarette and if he can start working with therapy. He does note he has not been out of bed since 2019 due to a stroke or medication side effect, he thinks maybe both. Recently had wheelchair privileges taken away due to to his shortness of breath on transitions and need for O2. Disposition: Disposition/Orders: D/C to Another Facility Activity: Activity: Resume previous activity Diet: Diet: Regular, Cardiac Medications: Home Meds Active Scripts Methylprednisolone (MEDROL) 4 Mg Tab.ds.pk, 1 PKG PO UD for copd, #1 PKG Prov:CASTLE,NIAL K III DO 03/09/21 Reported Medications [zinc] No Conflict Check, 250 MG PO DAILY for zinc deficiency 04/14/20 Potassium Chloride (KLOR-CON M20) 20 Meq Tab.er.prt, 20 MEQ PO BID for hypokalemia, TAB.SR 04/14/20 Polyethylene Glycol 3350 (MIRALAX) 17 Gm Powd.pack, 1 PACKET PO Q12HR PRN for CONSTIPATION, #30 PACKET 0 Refills dissolve in water 04/14/20 Polyethylene Glycol 3350 (MIRALAX) 17 Gm Powd.pack, 1 PKT PO DAILY for constipation, PKT 04/14/20 Nystatin (NYSTATIN) 15 Gm Cream..g., 1 RASHAD TP BID PRN for redness/gaulding r/t candidias, #30 GM 04/14/20 Ipratropium/Albuterol Sulfate (DUONEB 0.5-3(2.5) MG/3 ML) 3 Ml Ampul.neb, 3 ML NEB Q6HRS PRN for low oxygen saturation, EACH 04/14/20 Paliperidone Palmitate (INVEGA SUSTENNA) 234 Mg/1.5 Ml Disp.syrin, 234 MG IM [id number] for scizoaffective disorder, DIS.SYR 04/14/20 Furosemide (FUROSEMIDE) 20 Mg Tablet, 3 TAB PO DAILY for heart failure, #90 TAB 3 Refills 04/14/20 [cholecalciferol ] No Conflict Check, 2000 UNITS PO DAILY for vitamin D deficiency 04/14/20 Fluoxetine Hcl (PROZAC) 10 Mg Capsule, 1 CAP PO DAILY for DEPRESSION, #30 CAP 1 Refill 04/13/20 Olanzapine (OLANZAPINE) 10 Mg Tablet, 1 TAB PO QHS for SCHIZOAFFECTIVE DISORDER, #30 TAB 04/13/20 Magnesium Hydroxide (MILK OF MAGNESIA) 400 Mg/5 Ml Oral.susp, 400 MG PO PRN Q24HRS PRN for VOMITING, MISC 04/13/20 Metolazone (METOLAZONE) 2.5 Mg Tablet, 2.5 MG PO DAILY for COPD, #30 TAB 0 Refills 04/13/20 Levothyroxine Sodium (LEVOTHYROXINE SODIUM) 100 Mcg Tablet, 1 TAB PO DAILY for HYPOTHYROIDISM, #30 TAB 5 Refills 04/13/20 Ibuprofen (Ibu) 400 Mg Tablet, 1 TAB PO Q6HRS for PAIN for 5 Days, #20 TAB 0 Refills NEEDED FOR PAIN 04/13/20 Divalproex Sodium (DIVALPROEX SODIUM) 500 Mg Tablet.dr, 3 TAB PO HS for SCHIZOAFFECTIVE DISORDER, #60 TAB 1 Refill 04/13/20 Docusate Sodium (DOCUSATE SODIUM) 100 Mg Capsule, 1 CAP PO HS for constipation for 7 Days, #7 CAP 0 Refills 04/13/20 Forrest Tar (COAL TAR) 100 Gm Tar, 100 GM MC MON WED SAT for Seborrhea Capitis, MISC 04/13/20 Scheduled Forrest Tar (Forrest Tar), 100 GM MC MON WED SAT, (Reported) Divalproex Sodium (Divalproex Sodium), 3 TAB PO HS, (Reported) Docusate Sodium (Docusate Sodium), 1 CAP PO HS, (Reported) Fluoxetine Hcl (Prozac), 1 CAP PO DAILY, (Reported) Furosemide (Furosemide), 3 TAB PO DAILY, (Reported) Ibuprofen (Ibu), 1 TAB PO Q6HRS, (Reported) Levothyroxine Sodium (Levothyroxine Sodium), 1 TAB PO DAILY, (Reported) Methylprednisolone (Medrol), 1 PKG PO UD Metolazone (Metolazone), 2.5 MG PO DAILY, (Reported) Olanzapine (Olanzapine), 1 TAB PO QHS, (Reported) Paliperidone Palmitate (Invega Sustenna), 234 MG IM [id number], (Reported) Polyethylene Glycol 3350 (Miralax), 1 PKT PO DAILY, (Reported) Potassium Chloride (Klor-Con M20), 20 MEQ PO BID, (Reported) [cholecalciferol ], 2,000 UNITS PO DAILY, (Reported) [zinc], 250 MG PO DAILY, (Reported) Scheduled PRN Ipratropium/Albuterol Sulfate (Duoneb 0.5-3(2.5) Mg/3 Ml), 3 ML NEB Q6HRS PRN for low oxygen saturation, (Reported) Magnesium Hydroxide (Milk Of Magnesia), 400 MG PO PRN Q24HRS PRN for VOMITING, (Reported) Nystatin (Nystatin), 1 RASHAD TP BID PRN for redness/gaulding r/t candidias, (Reported) Polyethylene Glycol 3350 (Miralax), 1 PACKET PO Q12HR PRN for CONSTIPATION, (Reported) Justicifation of Admission Dx: Justifications for Admission: Justification of Admission Dx: Yes Sepsis: End-Organ Dysfunction CATHIE LI MD Mar 10, 2021 09:23
[2021-03-10] MEDS: ENOXAPARIN 40 MG/0.4 ML SYRINGE. SQ SCH (09:46)
[2021-03-10 11:00] VITALS: BP 102/56
--- NOTE | 2021-03-10 11:31 | SNU/HH DC ---
DISCHARGE ORDERS DISCHARGE INFORMATION: DISCHARGE DATE: Mar 10, 2021 FINAL DIAGNOSIS Problems Medical Problems: (1) Yfypu-cf-obptvip kidney injury Status: Acute (2) COPD exacerbation Status: Acute (3) Hypoxia Status: Acute CONDITION ON DISCHARGE: Stable CODE STATUS: Code Status: Full LONGTERM: SNF STAY <30 DAYS: No POST DISCHARGE ORDERS: ACTIVITY ORDERS: Resume previous activity DIET AFTER DISCHARGE: Cardiac CHECKS AFTER DISCHARGE: CHECKS AFTER DISCHARGE: Check blood press - daily, Check your Temp as needed DISCHARGE MEDICATIONS: Home Meds Active Scripts Methylprednisolone (MEDROL) 4 Mg Tab.ds.pk, 1 PKG PO UD for copd, #1 PKG Prov:CASTLE,NIAL K III DO 03/09/21 Reported Medications [zinc] No Conflict Check, 250 MG PO DAILY for zinc deficiency 04/14/20 Potassium Chloride (KLOR-CON M20) 20 Meq Tab.er.prt, 20 MEQ PO BID for hypokalemia, TAB.SR 04/14/20 Polyethylene Glycol 3350 (MIRALAX) 17 Gm Powd.pack, 1 PACKET PO Q12HR PRN for CONSTIPATION, #30 PACKET 0 Refills dissolve in water 04/14/20 Polyethylene Glycol 3350 (MIRALAX) 17 Gm Powd.pack, 1 PKT PO DAILY for constipation, PKT 04/14/20 Nystatin (NYSTATIN) 15 Gm Cream..g., 1 RASHAD TP BID PRN for redness/gaulding r/t candidias, #30 GM 04/14/20 Ipratropium/Albuterol Sulfate (DUONEB 0.5-3(2.5) MG/3 ML) 3 Ml Ampul.neb, 3 ML NEB Q6HRS PRN for low oxygen saturation, EACH 04/14/20 Paliperidone Palmitate (INVEGA SUSTENNA) 234 Mg/1.5 Ml Disp.syrin, 234 MG IM [id number] for scizoaffective disorder, DIS.SYR 04/14/20 Furosemide (FUROSEMIDE) 20 Mg Tablet, 3 TAB PO DAILY for heart failure, #90 TAB 3 Refills 04/14/20 [cholecalciferol ] No Conflict Check, 2000 UNITS PO DAILY for vitamin D deficiency 04/14/20 Fluoxetine Hcl (PROZAC) 10 Mg Capsule, 1 CAP PO DAILY for DEPRESSION, #30 CAP 1 Refill 12/6/20 Olanzapine (OLANZAPINE) 10 Mg Tablet, 1 TAB PO QHS for SCHIZOAFFECTIVE DISORDER, #30 TAB 04/13/20 Magnesium Hydroxide (MILK OF MAGNESIA) 400 Mg/5 Ml Oral.susp, 400 MG PO PRN Q24HRS PRN for VOMITING, MISC 04/13/20 Metolazone (METOLAZONE) 2.5 Mg Tablet, 2.5 MG PO DAILY for COPD, #30 TAB 0 Refills 04/13/20 Levothyroxine Sodium (LEVOTHYROXINE SODIUM) 100 Mcg Tablet, 1 TAB PO DAILY for HYPOTHYROIDISM, #30 TAB 5 Refills 04/13/20 Ibuprofen (Ibu) 400 Mg Tablet, 1 TAB PO Q6HRS for PAIN for 5 Days, #20 TAB 0 Refills NEEDED FOR PAIN 04/13/20 Divalproex Sodium (DIVALPROEX SODIUM) 500 Mg Tablet.dr, 3 TAB PO HS for SCHIZOAFFECTIVE DISORDER, #60 TAB 1 Refill 04/13/20 Docusate Sodium (DOCUSATE SODIUM) 100 Mg Capsule, 1 CAP PO HS for constipation for 7 Days, #7 CAP 0 Refills 04/13/20 Hickman Tar (COAL TAR) 100 Gm Tar, 100 GM MC MON WED SAT for Seborrhea Capitis, MISC 04/13/20 CATHIE LI MD Mar 10, 2021 11:31
[2021-03-10 15:00] VITALS: BP 100/55
--- NOTE | 2021-03-10 18:32 | NUR ---
Discharge Note: [facility] [place] Discharge instructions and discharge home medications reviewed with Other facility and a copy given. All questions have been answered and understanding verbalized. Report given to Angelina at [facility]. The following instructions and handouts were given: information about medications, activity, skin, diet, labs. Discontinued lines and drains: IV line in left AC removed, catheter tip intact. Patient discharged to [facility] with [facility] transport, stretcher used for mobility to discharge vehicle.
== END 2021-03-10 18:32 | disposition home or self-care (01) | DRG 682 ==
LOC: ER 09:23 → 4 NORTH 11:18
PROVIDERS: ADMIT Family Medicine; ATTEND Family Medicine
DX: N17.9 Acute kidney failure, unspecified (principal); J96.01 Acute respiratory failure with hypoxia; E44.0 Moderate protein-calorie malnutrition; I13.0 Hypertensive heart and chronic kidney disease with heart failure and stage 1 through stage 4 chronic kidney disease, or unspecified chronic kidney disease; J44.1 Chronic obstructive pulmonary disease with (acute) exacerbation; D64.9 Anemia, unspecified; E03.9 Hypothyroidism, unspecified; F17.210 Nicotine dependence, cigarettes, uncomplicated; F25.9 Schizoaffective disorder, unspecified; F32.A Depression, unspecified; I50.9 Heart failure, unspecified; N18.9 Chronic kidney disease, unspecified; Z82.49 Family history of ischemic heart disease and other diseases of the circulatory system; Z86.16 Personal history of COVID-19; Z88.8 Allergy status to other drugs, medicaments and biological substances; Z20.822 Contact with and (suspected) exposure to COVID-19
CPT/HCPCS: 36415; 36600; 71045; 80048; 80053; 81001; 82550; 82805; 83605; 83880; 84145; 84484; 85025; 86140; 87040; 87426; 87804; 93005; 93306; 93971; 94640; 94760; 96361; 96374; J1100; J1650; J2930; J7120; J7512; U0003; U0005; 97530-GP; 99285-25; G0378; J7626

== ENCOUNTER 2021-08-18 23:31 | Inpatient (IN) | payer MEDICARE ==
[~2021-08-18] VITALS: Ht 182.9 cm; Wt 97.5 kg
[~2021-08-18 23:31] MED LIST changes: +METH4TAB2 PO
[2021-08-19] VITALS (7 sets, daily range): BP systolic 83–127; BP diastolic 49–63
[2021-08-19 00:15] LABS: BASO % 0 % (0-3); EOS # 0.1 x10^3/uL (0.0-0.7); EOS % 1 % (0-3); HEMATOCRIT 33.7 % (39.0-53.0); HEMOGLOBIN 11.4 g/dL (13.0-17.5); LYMPH # 0.5 x10^3/uL (1.0-4.8); LYMPH % 6 % (24-48); MEAN CORPUSCULAR HEMOGLOBIN 33 pg (25-35); MEAN CORPUSCULAR HGB CONC 34 g/dL (31-37); MEAN CORPUSCULAR VOLUME 97 fL (79-100); MONO % 13 % (0-9); NEUT # 6.6 x10^3/uL (1.8-7.7); NEUT % 80 % (31-73); PLATELET COUNT 132 x10^3/uL (140-400); RED BLOOD COUNT 3.48 x10^6/uL (4.30-5.70); RED CELL DISTRIBUTION WIDTH 14.9 % (11.5-14.5); WHITE BLOOD COUNT 8.3 x10^3/uL (4.0-11.0)
[2021-08-19] MEDS ORDERED: PIP/TAZO PER PHARMACY MC PRN ×2 (00:15→08:30)
[2021-08-19] MEDS ORDERED: VANCOMYCIN PER PHARMACY MC PRN (00:15)
[2021-08-19 00:27] LABS: BACTERIA,URINE 0 /HPF (0-FEW); CALCIUM 8.5 mg/dL (8.5-10.1); CREATININE 1.8 mg/dL (0.7-1.3); GFR 38.1; POTASSIUM 3.6 mmol/L (3.5-5.1); WBC,URINE 0 /HPF (0-4)
[2021-08-19] MEDS ORDERED: PIPERACILLIN/TAZOBACTAM 4.5 GM in IV DEXTROSE 5% 100ML 100 ML IV ONE (00:30)
[2021-08-19] MEDS ORDERED: IV NORMAL SALINE 1000ML BAG 1,000 ML IV ONE ×2 (00:30→02:00)
[2021-08-19 00:32] LABS: ALBUMIN/GLOBULIN RATIO 0.8 (1.0-1.7); TOTAL BILIRUBIN 0.4 mg/dL (0.2-1.0); TOTAL PROTEIN 6.8 g/dL (6.4-8.2)
--- NOTE | 2021-08-19 00:40 | RAD ---
EXAM: AP View of the chest DATE: 08/19/2021 12:31 AM INDICATION: fever COMPARISON: 03/06/2021 04/12/2020 FINDINGS: The heart is not enlarged. Patchy opacities peripheral right lung and left lung base likely atelectasis or developing consolidat ion. No pleural effusion or pneumothorax. Eventration left hemidiaphragm. IMPRESSION: Patchy opacities peripheral right lung and left lung base likely atelectasis or developing consolidat ion. Electronically signed by: Gregg Stuart MD (08/19/2021 12:37 AM) [facility]
[2021-08-19 00:55] LABS: INFLUENZA B PATIENT NEGATIVE (NEGATIVE)
[2021-08-19 00:57] LABS: INFLUENZA A PATIENT POSITIVE (NEGATIVE)
[2021-08-19] MEDS ORDERED: VANCOMYCIN 2 GM in IV NORMAL SALINE 500ML BAG 500 ML IV ONE ×2 (01:00→16:00)
[2021-08-19] MEDS: OSELTAMIVIR 30 MG CAPSULE PO SCH ×2 (01:59→21:35)
[2021-08-19] MEDS ORDERED: OSELTAMIVIR 75 MG CAPSULE PO ONE (02:00)
[2021-08-19] MEDS ORDERED: cefTRIAXone IV Push 1 GM VIAL. IVP ONE (02:00)
[2021-08-19] MEDS ORDERED: AZITHROMYCIN 500 MG in IV NORMAL SALINE 250ML 250 ML IV ONE (02:00)
--- NOTE | 2021-08-19 04:23 | PHYS DOC ---
Past Medical History Past Medical History: CHF, COPD, Depression, Hypothyroid, Schizophrenia Additional Past Medical Histor: COVID, LEFT LOWER LEG ULCER,seborrhea capitis,hypokalemia,back pain, thyroi Past Surgical History: No Surgical History Smoking Status: Never Smoker Alcohol Use: None Adult General Chief Complaint Chief Complaint: ALTERED MENTAL STATUS HPI HPI The patient is a 66-year-old male with a history of schizoaffective disorder, some degree of heart failure on daily Lasix (no echocardiogram on file), chronic respiratory failure on 3 L by nasal cannula at baseline, unclear etiology; perhaps COPD?. Mr. Leavitt presents for evaluation of fever, upper respiratory congestion, rhin orrhea, cough and shortness of breath with onset about 2 to 3 days prior to arrival. Alert and oriented consistent with his baseline here but requiring more than his normal home oxygen to maintain saturation. Tachycardic and somewhat tachypneic. Denies pain anywhere. Does not provide much further history. Review of Systems Review of Systems A 12 point review of systems was completed and was negative except where noted in HPI above. Current Medications Current Medications Current Medications Medications (Trade) Dose Ordered Sig/Dread Start Time Stop Time Status Last Admin Dose Admin Azithromycin 500 mg/Sodium Chloride 250 ml @ 250 mls/hr 1X ONCE 08/19/21 02:00 08/19/21 02:59 DC 08/19/21 01:56 250 MLS/HR Ceftriaxone Sodium (Rocephin) 1 gm 1X ONCE 08/19/21 02:00 08/19/21 02:01 DC 08/19/21 01:53 1 GM Oseltamivir Phosphate (Tamiflu) 30 mg BID 08/19/21 02:00 08/24/21 01:59 08/19/21 01:59 30 MG Piperacillin Sod/ Tazobactam Sod (Zosyn Per Pharmacy) 1 each PRN DAILY PRN 08/19/21 00:15 08/19/21 01:26 DC Piperacillin Sod/ Tazobactam Sod 4.5 gm/Dextrose 100 ml @ 200 mls/hr 1X ONCE 08/19/21 00:30 08/19/21 01:26 DC Sodium Chloride 1,000 ml @ 1,000 mls/hr 1X ONCE 08/19/21 02:00 08/19/21 02:59 DC Vancomycin HCl (Vanco Per Pharmacy) 1 each PRN DAILY PRN 08/19/21 00:15 08/19/21 01:26 DC Vancomycin HCl 2 gm/Sodium Chloride 500 ml @ 250 mls/hr 1X ONCE 08/19/21 01:00 08/19/21 01:26 DC Allergies Allergies Allergies Coded Allergies Type Severity Reaction Last Updated Verified animal dander Allergy Intermediate 08/19/21 Yes haloperidol Allergy Intermediate 08/19/21 Yes Physical Exam Physical Exam 66-year-old male appearing nontoxic and in no acute distress, though mildly ill. Head is normocephalic and atraumatic. Neck is supple and nontender. Oropharynx is mildly tacky. Lungs with diminished breath sounds well melissa but no adventitious sounds heard. Mild tachypnea. There is normal S1 and S2 without rubs or gallops and capillary refill is appropriate, less than 2 seconds globally. Abdomen is soft, nontender and nondistended. Skin is warm and dry without cyanosis, clubbing or edema. Psychiatrically, patient demonstrates appropriate mood and affect and is alert. Evaluation of the extremities reveals BUEs and BLEs neurovascularly intact distally with strong 5-5, sensation intact light touch in all nerve distributions, radial, DP and PT pulses 2+ and equal bilaterally, capillary refill less than 2 seconds, hands and feet warm and well- perfused. Current Patient Data Vital Signs Vital Signs Date Time Temp Pulse Resp B/P (MAP) Pulse Ox O2 Delivery O2 Flow Rate FiO2 08/18/21 23:48 98.8 131 22 124/79 (94) 90 Room Air 5.0 98.8 Lab Values Laboratory Tests Test 08/19/21 00:04 08/19/21 00:35 White Blood Count 8.3 x10^3/uL (4.0-11.0) Red Blood Count 3.48 x10^6/uL (4.30-5.70) L Hemoglobin 11.4 g/dL (13.0-17.5) L Hematocrit 33.7 % (39.0-53.0) L Mean Corpuscular Volume 97 fL (79-100) Mean Corpuscular Hemoglobin 33 pg (25-35) Mean Corpuscular Hemoglobin Concent 34 g/dL (31-37) Red Cell Distribution Width 14.9 % (11.5-14.5) H Platelet Count 132 x10^3/uL (140-400) L Neutrophils (%) (Auto) 80 % (31-73) H Lymphocytes (%) (Auto) 6 % (24-48) L Monocytes (%) (Auto) 13 % (0-9) H Eosinophils (%) (Auto) 1 % (0-3) Basophils (%) (Auto) 0 % (0-3) Neutrophils # (Auto) 6.6 x10^3/uL (1.8-7.7) Lymphocytes # (Auto) 0.5 x10^3/uL (1.0-4.8) L Monocytes # (Auto) 1.0 x10^3/uL (0.0-1.1) Eosinophils # (Auto) 0.1 x10^3/uL (0.0-0.7) Basophils # (Auto) 0.0 x10^3/uL (0.0-0.2) Urine Collection Type Unknown Urine Color (Auto) Light yellow Urine Turbidity Clear Urine pH (Auto) 7.0 (<5.0-8.0) Urine Specific [place] 1.010 (1.000-1.030) Urine Protein (Auto) Negative mg/dL (Negative) Urine Glucose (Auto)(UA) Negative mg/dL (Negative) Urine Ketones (Auto) Negative mg/dL (Negative) Urine Blood (Auto) Trace (Negative) Urine Nitrite Negative (Negative) Urine Bilirubin (Auto) Negative (Negative) Urine Urobilinogen (Auto) Normal mg/dL (Normal) Urine Leukocyte Esterase (Auto) Negative (Negative) Urine RBC 3-5 /HPF (0-2) Urine WBC 0 /HPF (0-4) Urine Squamous Epithelial Cells Occ /LPF Urine Bacteria 0 /HPF (0-FEW) Urine Mucus Slight /LPF Sodium Level 140 mmol/L (136-145) Potassium Level 3.6 mmol/L (3.5-5.1) Chloride Level 102 mmol/L (98-107) Carbon Dioxide Level 31 mmol/L (21-32) Anion Gap 7 (6-14) Blood Urea Nitrogen 25 mg/dL (8-26) Creatinine 1.8 mg/dL (0.7-1.3) H Estimated GFR (Cockcroft-Gault) 38.1 BUN/Creatinine Ratio 14 (6-20) Glucose Level 104 mg/dL (70-99) H Lactic Acid Level 1.7 mmol/L (0.4-2.0) Calcium Level 8.5 mg/dL (8.5-10.1) Total Bilirubin 0.4 mg/dL (0.2-1.0) Aspartate Amino Transferase (AST) 16 U/L (15-37) Alanine Aminotransferase (ALT) 10 U/L (16-63) L Alkaline Phosphatase 54 U/L (46-116) Troponin I High Sensitivity 46 ng/L (4-75) TS-Ljg-S-Type Natriuretic Peptide 168 pg/mL (0-124) H Total Protein 6.8 g/dL (6.4-8.2) Albumin 3.0 g/dL (3.4-5.0) L Albumin/Globulin Ratio 0.8 (1.0-1.7) L Procalcitonin 0.23 ng/mL (0.00-0.10) H Influenza Type A Antigen Positive (NEGATIVE) *A Influenza Type B Antigen Negative (NEGATIVE) SARS-CoV-2 Antigen (Rapid) Negative (NEGATIVE) Laboratory Tests 08/19/21 00:04 Laboratory Tests 08/19/21 00:04 EKG EKG Sinus rhythm, rate 134, no acute ST elevation or depression, MT 110, QRS 76, QTc 496, EP interpretation. Nonischemic tracing, intervals appropriate. Radiology/Procedures Radiology/Procedures EXAM: AP View of the chest DATE: 08/19/2021 12:31 AM INDICATION: fever COMPARISON: 03/06/2021 04/12/2020 FINDINGS: The heart is not enlarged. Patchy opacities peripheral right lung and left lung base likely atelectasis or developing consolidation. No pleural effusion or pneumothorax. Eventration left hemidiaphragm. IMPRESSION: Patchy opacities peripheral right lung and left lung base likely atelectasis or developing consolidation. Electronically signed by: Gregg Castro MD (08/19/2021 12:37 AM) [facility] DICTATED and SIGNED BY: GREGG CASTRO MD DATE: 08/19/21 0035 Course & Med Decision Making Course & Med Decision Making Work-up largely benign aside from some patchy infiltrates on CXR, influenza A positivity and a degree of renal insufficiency of uncertain chronicity. Patient has received crystalloid rehydration and Rocephin and azithromycin after cultures to cover for possible bacterial superinfection given severity of illness. Tamiflu dose has been given. Patient is requiring 5 L by nasal cannula and per discussion with respiratory therapy will be initiated on low rate Vapotherm once he gets to the floor. Graciously accepted for admission by Dr. Soto. Rubi Disclaimer Rubi Disclaimer This electronic medical record was generated, in whole or in part, using a voice recognition dictation system. Departure Departure Impression: Primary Impression: Influenza A Additional Impressions: Acute and chronic respiratory failure with hypoxia Renal insufficiency Disposition: ADMITTED INPATIENT Condition: GUARDED Referrals: SADI CARTWRIGHT MD (PCP) Problem Qualifiers VI LAKHANI MD Aug 19, 2021 04:23
[2021-08-19] MEDS ORDERED: ONDANSETRON PF 4 MG/2 ML VIAL. IVP PRN ×2 (04:30→08:30)
[2021-08-19] MEDS ORDERED: ACETAMINOPHEN 325 MG TABLET. PO PRN (04:30)
--- NOTE | 2021-08-19 05:37 | NUR ---
Pt arrived to unit per cart, pt assisted to bed with max assist,tele monitor applied to pt vs obtained and stable.Pt oriented to surroundings and call light placed in reach. Poc explained to pt. Pt denied pain at this time will resume care and continue to monitor pt.Bed alarm is set.
[2021-08-19] MEDS ORDERED: FLUO40CA9 PO (05:56)
[2021-08-19] MEDS ORDERED: LIDO1ADH44 TP (05:56)
--- NOTE | 2021-08-19 08:27 | PDOC1 ---
History and Physical Date of Service: DOS: DATE: 08/19/21 TIME: 08:24 Chief Complaint: Chief Complain: Altered mental status. History of Present Illness: HPI: 66-year-old male with multiple comorbidities including CHF and COPD and schizoaffective disorder who comes [facility] with with altered mental status and increased O2 requirements. He is at his baseline at 3 L nasal cannula but required 5 L. He also endorses upper respiratory symptoms, rhinorrhea, shortness of breath for the last 3 days. Patient was tachypneic in the ED. Denies any fevers, chest pain or abdominal pain or dysuria at the time. Evaluated this morning patient was lethargic and not responding to me. ABG was drawn showing CO2 level 62. Past Medical/Surgical History: PMH/PSH: Past Medical History: CHF, COPD, Depression, Hypothyroid, Schizophrenia, COVID, LEFT LOWER LEG ULCER,seborrhea capitis,hypokalemia,back pain, Past Surgical History: No Surgical History Allergies: Allergies: Coded Allergies: animal dander (Verified Allergy, Intermediate, 08/19/21) haloperidol (Verified Allergy, Intermediate, 08/19/21) Family History: Family History: Reviewed with no relative findings in the chart Social History: Social History: Smoking Status: Never Smoker Alcohol Use: None Current Medications: Current Medications Current Medications Sodium Chloride 1,000 ml @ 999 mls/hr 1X ONCE IV Last administered on 08/19/21at 00:30; Start 08/19/21 at 00:30; Stop 08/19/21 at 01:30; Status DC Vancomycin HCl (Vanco Per Pharmacy) 1 each PRN DAILY PRN MC SEE COMMENTS; Start 08/19/21 at 00:15; Stop 08/19/21 at 01:26; Status DC Piperacillin Sod/ Tazobactam Sod (Zosyn Per Pharmacy) 1 each PRN DAILY PRN MC SEE COMMENTS; Start 08/19/21 at 00:15; Stop 08/19/21 at 01:26; Status DC Vancomycin HCl 2 gm/Sodium Chloride 500 ml @ 250 mls/hr 1X ONCE IV ; Start 08/19/21 at 01:00; Stop 08/19/21 at 01:26; Status DC Piperacillin Sod/ Tazobactam Sod 4.5 gm/Dextrose 100 ml @ 200 mls/hr 1X ONCE IV ; Start 08/19/21 at 00:30; Stop 08/19/21 at 01:26; Status DC Ceftriaxone Sodium (Rocephin) 1 gm 1X ONCE IVP Last administered on 08/19/21at 01:53; Start 08/19/21 at 02:00; Stop 08/19/21 at 02:01; Status DC Azithromycin 500 mg/Sodium Chloride 250 ml @ 250 mls/hr 1X ONCE IV Last administered on 08/19/21at 01:56; Start 08/19/21 at 02:00; Stop 08/19/21 at 02:59; Status DC Oseltamivir Phosphate (Tamiflu) 75 mg 1X ONCE PO ; Start 08/19/21 at 02:00; Stop 08/19/21 at 02:01; Status Cancel Sodium Chloride 1,000 ml @ 1,000 mls/hr 1X ONCE IV ; Start 08/19/21 at 02:00; Stop 08/19/21 at 02:59; Status DC Oseltamivir Phosphate (Tamiflu) 30 mg BID PO Last administered on 08/19/21at 01:59; Start 08/19/21 at 02:00; Stop 08/24/21 at 01:59 Ondansetron HCl (Zofran) 4 mg PRN Q8HRS PRN IVP NAUSEA/VOMITING 1ST CHOICE; Start 08/19/21 at 04:30; Stop 08/20/21 at 04:29 Acetaminophen (Tylenol) 650 mg PRN Q4HRS PRN PO FEVER > 100.3'F; Start 08/19/21 at 04:30; Stop 08/20/21 at 04:29 Active Scripts Active Reported Prozac (Fluoxetine Hcl) 40 Mg Capsule 1 Cap PO DAILY Aspercreme (Lidocaine) 1 Each Adh..patch 1 Each TP PRN Q6HRS PRN Klor-Con M20 (Potassium Chloride) 20 Meq Tab.er.prt 40 Meq PO TID Miralax (Polyethylene Glycol 3350) 17 Gm Powd.pack 1 Packet PO DAILY PRN dissolve in water Miralax (Polyethylene Glycol 3350) 17 Gm Powd.pack 1 Pkt PO PRN Q12HRS PRN Nystatin 15 Gm Cream..g. 1 Elliott TP BID PRN Duoneb 0.5-3(2.5) Mg/3 Ml (Albuterol/Ipratropium) 3 Ml Ampul.neb 3 Ml NEB Q6HRS PRN Invega Sustenna (Paliperidone Palmitate) 234 Mg/1.5 Ml Disp.syrin 234 Mg IM P50NOQU Furosemide 20 Mg Tablet 3 Tab PO DAILY [cholecalciferol ] 2,000 Units PO DAILY Olanzapine 10 Mg Tablet 1 Tab PO QHS Milk Of Magnesia (Magnesium Hydroxide) 400 Mg/5 Ml Oral.susp 400 Mg PO PRN Q24HRS PRN Metolazone 2.5 Mg Tablet 2.5 Mg PO DAILY Levothyroxine Sodium 100 Mcg Tablet 1 Tab PO DAILY Ibu (Ibuprofen) 400 Mg Tablet 1 Tab PO Q6HRS 5 Days NEEDED FOR PAIN Divalproex Sodium 500 Mg Tablet.dr 2 Tab PO HS Docusate Sodium 100 Mg Capsule 1 Cap PO HS 7 Days Bracken Tar 100 Gm Tar 100 Gm MC Tue SAT ROS: Review of Systems Review of System REVIEW OF SYSTEMS: Limited due to altered mental status Physical Exam: Vital Signs: Vital Signs Date Time Temp Pulse Resp B/P (MAP) Pulse Ox O2 Delivery O2 Flow Rate FiO2 08/19/21 07:11 99.3 92 18 94/50 (65) 96 Nasal Cannula 5.0 99.3 Physcial Exam: General: Well developed, well nourished, no acute distress, well appearing HEENT: Pupils equally round and reactive to light, EOMI, no discharge, normal conjunctiva Neck: Supple, no nuchal rigidity, no JVD, trachea midline, no tenderness Cardiac: RRR, no murmurs, no gallops, no rubs Chest/Lungs: CTAB, no wheeze, no rhonchi, no crackles Abdomen: soft, non-distended, no guarding, no peritoneal signs, non-tender Back: No tenderness Extremities: no edema, pulses intact, non-tender,capillary refill <3 sec bilateral upper and lower extremities, Neuro: Not responding and lethargic appearing. Labs: Labs: Laboratory Tests Test 08/19/21 00:04 08/19/21 00:35 White Blood Count 8.3 x10^3/uL (4.0-11.0) Red Blood Count 3.48 x10^6/uL (4.30-5.70) Hemoglobin 11.4 g/dL (13.0-17.5) Hematocrit 33.7 % (39.0-53.0) Mean Corpuscular Volume 97 fL (79-100) Mean Corpuscular Hemoglobin 33 pg (25-35) Mean Corpuscular Hemoglobin Concent 34 g/dL (31-37) Red Cell Distribution Width 14.9 % (11.5-14.5) Platelet Count 132 x10^3/uL (140-400) Neutrophils (%) (Auto) 80 % (31-73) Lymphocytes (%) (Auto) 6 % (24-48) Monocytes (%) (Auto) 13 % (0-9) Eosinophils (%) (Auto) 1 % (0-3) Basophils (%) (Auto) 0 % (0-3) Neutrophils # (Auto) 6.6 x10^3/uL (1.8-7.7) Lymphocytes # (Auto) 0.5 x10^3/uL (1.0-4.8) Monocytes # (Auto) 1.0 x10^3/uL (0.0-1.1) Eosinophils # (Auto) 0.1 x10^3/uL (0.0-0.7) Basophils # (Auto) 0.0 x10^3/uL (0.0-0.2) Urine Collection Type Unknown Urine Color (Auto) Light yellow Urine Turbidity Clear Urine pH (Auto) 7.0 (<5.0-8.0) Urine Specific Grant 1.010 (1.000-1.030) Urine Protein (Auto) Negative mg/dL (Negative) Urine Glucose (Auto)(UA) Negative mg/dL (Negative) Urine Ketones (Auto) Negative mg/dL (Negative) Urine Blood (Auto) Trace (Negative) Urine Nitrite Negative (Negative) Urine Bilirubin (Auto) Negative (Negative) Urine Urobilinogen (Auto) Normal mg/dL (Normal) Urine Leukocyte Esterase (Auto) Negative (Negative) Urine RBC 3-5 /HPF (0-2) Urine WBC 0 /HPF (0-4) Urine Squamous Epithelial Cells Occ /LPF Urine Bacteria 0 /HPF (0-FEW) Urine Mucus Slight /LPF Sodium Level 140 mmol/L (136-145) Potassium Level 3.6 mmol/L (3.5-5.1) Chloride Level 102 mmol/L (98-107) Carbon Dioxide Level 31 mmol/L (21-32) Anion Gap 7 (6-14) Blood Urea Nitrogen 25 mg/dL (8-26) Creatinine 1.8 mg/dL (0.7-1.3) Estimated GFR (Cockcroft-Gault) 38.1 BUN/Creatinine Ratio 14 (6-20) Glucose Level 104 mg/dL (70-99) Lactic Acid Level 1.7 mmol/L (0.4-2.0) Calcium Level 8.5 mg/dL (8.5-10.1) Total Bilirubin 0.4 mg/dL (0.2-1.0) Aspartate Amino Transf (AST/SGOT) 16 U/L (15-37) Alanine Aminotransferase (ALT/SGPT) 10 U/L (16-63) Alkaline Phosphatase 54 U/L (46-116) Troponin I High Sensitivity 46 ng/L (4-75) KL-Kvd-F-Type Natriuretic Peptide 168 pg/mL (0-124) Total Protein 6.8 g/dL (6.4-8.2) Albumin 3.0 g/dL (3.4-5.0) Albumin/Globulin Ratio 0.8 (1.0-1.7) Procalcitonin 0.23 ng/mL (0.00-0.10) Influenza Type A Antigen Positive (NEGATIVE) Influenza Type B Antigen Negative (NEGATIVE) SARS-CoV-2 Antigen (Rapid) Negative (NEGATIVE) Laboratory Tests Test 08/19/21 00:04 08/19/21 00:35 White Blood Count 8.3 x10^3/uL (4.0-11.0) Red Blood Count 3.48 x10^6/uL (4.30-5.70) Hemoglobin 11.4 g/dL (13.0-17.5) Hematocrit 33.7 % (39.0-53.0) Mean Corpuscular Volume 97 fL (79-100) Mean Corpuscular Hemoglobin 33 pg (25-35) Mean Corpuscular Hemoglobin Concent 34 g/dL (31-37) Red Cell Distribution Width 14.9 % (11.5-14.5) Platelet Count 132 x10^3/uL (140-400) Neutrophils (%) (Auto) 80 % (31-73) Lymphocytes (%) (Auto) 6 % (24-48) Monocytes (%) (Auto) 13 % (0-9) Eosinophils (%) (Auto) 1 % (0-3) Basophils (%) (Auto) 0 % (0-3) Neutrophils # (Auto) 6.6 x10^3/uL (1.8-7.7) Lymphocytes # (Auto) 0.5 x10^3/uL (1.0-4.8) Monocytes # (Auto) 1.0 x10^3/uL (0.0-1.1) Eosinophils # (Auto) 0.1 x10^3/uL (0.0-0.7) Basophils # (Auto) 0.0 x10^3/uL (0.0-0.2) Urine Collection Type Unknown Urine Color (Auto) Light yellow Urine Turbidity Clear Urine pH (Auto) 7.0 (<5.0-8.0) Urine Specific Grant 1.010 (1.000-1.030) Urine Protein (Auto) Negative mg/dL (Negative) Urine Glucose (Auto)(UA) Negative mg/dL (Negative) Urine Ketones (Auto) Negative mg/dL (Negative) Urine Blood (Auto) Trace (Negative) Urine Nitrite Negative (Negative) Urine Bilirubin (Auto) Negative (Negative) Urine Urobilinogen (Auto) Normal mg/dL (Normal) Urine Leukocyte Esterase (Auto) Negative (Negative) Urine RBC 3-5 /HPF (0-2) Urine WBC 0 /HPF (0-4) Urine Squamous Epithelial Cells Occ /LPF Urine Bacteria 0 /HPF (0-FEW) Urine Mucus Slight /LPF Sodium Level 140 mmol/L (136-145) Potassium Level 3.6 mmol/L (3.5-5.1) Chloride Level 102 mmol/L (98-107) Carbon Dioxide Level 31 mmol/L (21-32) Anion Gap 7 (6-14) Blood Urea Nitrogen 25 mg/dL (8-26) Creatinine 1.8 mg/dL (0.7-1.3) Estimated GFR (Cockcroft-Gault) 38.1 BUN/Creatinine Ratio 14 (6-20) Glucose Level 104 mg/dL (70-99) Lactic Acid Level 1.7 mmol/L (0.4-2.0) Calcium Level 8.5 mg/dL (8.5-10.1) Total Bilirubin 0.4 mg/dL (0.2-1.0) Aspartate Amino Transf (AST/SGOT) 16 U/L (15-37) Alanine Aminotransferase (ALT/SGPT) 10 U/L (16-63) Alkaline Phosphatase 54 U/L (46-116) Troponin I High Sensitivity 46 ng/L (4-75) GF-Lne-J-Type Natriuretic Peptide 168 pg/mL (0-124) Total Protein 6.8 g/dL (6.4-8.2) Albumin 3.0 g/dL (3.4-5.0) Albumin/Globulin Ratio 0.8 (1.0-1.7) Procalcitonin 0.23 ng/mL (0.00-0.10) Influenza Type A Antigen Positive (NEGATIVE) Influenza Type B Antigen Negative (NEGATIVE) SARS-CoV-2 Antigen (Rapid) Negative (NEGATIVE) Images: Images PROCEDURE: CHEST AP ONLY EXAM: AP View of the chest DATE: 08/19/2021 12:31 AM INDICATION: fever COMPARISON: 03/06/2021 04/12/2020 FINDINGS: The heart is not enlarged. Patchy opacities peripheral right lung and left lung base likely atelectasis or developing consolidation. No pleural effusion or pneumothorax. Eventration left hemidiaphragm. IMPRESSION: Patchy opacities peripheral right lung and left lung base likely atelectasis or developing consolidation. Assessment/Plan Assessment/Plan Acute hypercapnic and hypoxic respiratory failure Influenza a pneumonia TEODORO due to vasomotor nephropathy History of CHF, unknown EF History of COPD History of hypothyroidism History of schizophrenia Admit to hospitalist service for further management Continue empiric IV antibiotics Continue Tamiflu BiPAP as needed Strict I's/O Avoid nephrotoxic agents Judicious fluid replacement Pending TTE Pulmonology consulted for COPD and O2 management Lovenox for DVT prophylaxis Protonix GI prophylaxis ADA diet CODE STATUS full Discussed with RN and SW Disposition inpatient management as above DPOA: Undesignated Justifications for Admission Other Justification FANNIE HUTCHISON MD Aug 19, 2021 08:27
[2021-08-19] MEDS ORDERED: DEXTROSE 50% 25 GM / 50ML DISP.SYRIN. IV PRN (08:30)
[2021-08-19] MEDS ORDERED: diphenhydrAMINE HCL 25 MG CAPSULE PO PRN ×2 (08:30)
[2021-08-19] MEDS ORDERED: ZOLPIDEM 5 MG TABLET. PO PRN (08:30)
[2021-08-19] MEDS ORDERED: SENNOSIDES 8.6 MG TABLET PO PRN (08:30)
[2021-08-19] MEDS ORDERED: diphenhydrAMINE 50 MG/ML VIAL IVP PRN (08:30)
[2021-08-19] MEDS ORDERED: PROCHLORPERAZINE 10 MG/2 ML VIAL. IV PRN (08:30)
[2021-08-19] MEDS ORDERED: LORazepam 0.5 MG TABLET PO PRN (08:30)
[2021-08-19] MEDS ORDERED: DOCUSATE SODIUM 100 MG CAPSULE. PO PRN (08:30)
--- NOTE | 2021-08-19 08:34 | EKG ---
[facility] [address] [place] [address] Test Date: 2021-08-18 Test Time: 23:43:58 Pat Name: KAMRON CRAFT Department: Room: [facility] Gender: M Law Writer: : 1955 Requested By: FRANK COLIN Order Number: [id number] Reading MD: Arsalan Sprague Measurements Intervals [place] Rate: 134 P: -31 IN: 110 QRS: 20 QRSD: 76 T: 41 QT: 332 QTc: 496 Interpretive Statements SINUS TACHYCARDIA Electronically Signed On 08-21-2021 13:36:57 CDT by Arsalan Sprague
[2021-08-19] MEDS: FLUoxetine HCL 20 MG CAPSULE PO SCH (09:00)
[2021-08-19 10:17] LABS: BASE EXCESS ABG 8 mmol/L (-3-3); HCO3 ABG 35 mmol/L (21-28); PO2 ABG 82 mmHg (65-108); SAT O2 ABG 95 % (92-99)
[2021-08-19 10:34] LABS: FIO2 ABG 6 LPM NC; PCO2 ABG 63 mmHg (35-46)
[2021-08-19] MEDS ORDERED: PIPERACILLIN/TAZOBACTAM 3.375 GM in IV NORMAL SALINE 50ML 50 ML IV SCH (11:00)
[2021-08-19] MEDS: LEVOTHYROXINE 100 MCG TABLET PO SCH (11:00)
--- NOTE | 2021-08-19 11:18 | CONS ---
PULMONARY CONSULTATION ATTENDING PHYSICIAN: Dr. Soto. REASON FOR CONSULTATION: Influenza pneumonia, encephalopathy. HISTORY OF PRESENT ILLNESS: The patient is a 66-year-old male with schizoaffective disorder and some component of CHF. He has chronic respiratory failure, on 3 liters on a 24-hour basis. He was brought into the hospital with rhinorrhea, cough, shortness of breath for last 2-3 days. He was tested positive for influenza. Since last night, the patient was noted to have altered mental status. At present when I evaluated the patient, I could not arouse him. The patient is on p.r.n. lorazepam but I did not see that he received it. He was started on Tamiflu. Arterial blood gases reveal a pH of 7.36, pCO2 of 63 and a pO2 of 82 on 6 liters. I have been asked to see him for further evaluation. PAST MEDICAL HISTORY: CHF, COPD, depression, hypothyroidism, schizophrenia, COVID, history of left lower leg ulcer. PAST SURGICAL HISTORY: No surgeries. ALLERGIES: HALOPERIDOL. MEDICATIONS: Reviewed as listed in the MRAD. REVIEW OF SYSTEMS: Unable to obtain from the patient. FAMILY HISTORY: Unable to obtain. PHYSICAL EXAMINATION: VITAL SIGNS: Reviewed. T-max of 99.3. Pulse ox 96%, 5 liters. Unable to get any information from the patient. Blood pressure 94 systolic. NECK: Supple. LUNGS: With few rhonchi anteriorly. No wheezing. CARDIOVASCULAR: With a regular rate. ABDOMEN: Soft, obese. EXTREMITIES: With no pitting edema. LABORATORY DATA: Reviewed. Influenza A positive. BUN 25, creatinine 1.8. White cell count 8.3. IMPRESSION: 1. Acute hypoxic and acute on chronic hypercapnic respiratory failure secondary to underlying influenza pneumonia. 2. Encephalopathy related to influenza pneumonia. This is metabolic. 3. Abnormal chest x-ray with bilateral infiltrates consistent with influenza pneumonia. RECOMMENDATIONS: 1. Discussed with respiratory therapist and nurse. We will place the patient on BiPAP until his mental status improved. 2. Continue Tamiflu. 3. Continue empiric antibiotics to cover for superimposed bacterial pneumonia. 4. Monitor white cell counts closely. 5. Continue supportive care. 6. We will follow along with you. DOMINICK/FERMIN/MOH DR: Hazel TID: [phone]
--- NOTE | 2021-08-19 15:55 | NUR ---
SS following for discharge planning. SS reviewed pt chart and discussed with pt RN. Pt is LTC resident from [facility], ; fax [phone]. Pt is currently requiring oxygen at five liters nasal canula. Flu A positive. COVID19 negative. Pt on IV Zosyn. Pulmonology following. SS will continue to follow for discharge planning.
[2021-08-19] MEDS: VANCOMYCIN PER PHARMACY MC PRN ×2 (16:49→17:04)
--- NOTE | 2021-08-19 17:05 | NUR ---
Pharmacy Vancomycin Dosing Note S:Consulted to monitor and dose vancomycin started 08/19/21. O:KAMRON CRAFT is a 66 year old M with HCAP . Height: 6 feet, 0 inches Weight: 91.5 kg [place] Body Weight: 77.60 Adjusted Body Weight: 83.16 Dosing Weight: Other Antibiotics: ZOSYN LABS: Last BUN: 25 Last Creatinine: 1.8 Creatinine Clearance: 48 mL/min Last WBC: 8.3 Last Procalcitonin: Tmax (past 24 hours): Microbiology: I/O: Drug Levels: Last level: on at Last dose given at Vancomycin Dosing: Loading Dose: 2000 mg x1 Dosing Weight: Target Trough: 15-20 A: Based on: HT, WT AND RENAL FUNCTION P: 1. Begin Vancomycin 1750 mg IV q24h 2. Follow up Trough level on 08/21/21 at 1630 3. Pharmacy will continue to monitor, follow and adjust therapy as needed. MEENU RAMSEY, [facility], 08/19/21 [id number]
[2021-08-19] MEDS: PIPERACILLIN/TAZOBACTAM 4.5 GM in IV DEXTROSE 5% 100ML 100 ML IV SCH (19:45)
--- NOTE | 2021-08-19 19:50 | NUR ---
Pt in bed assessment completed vss poc explained pt without c/o pain at this time call light in reach will resume care and continue to monitor pt.
[2021-08-19] MEDS: OLANZapine 5 MG TABLET PO SCH (21:36)
[2021-08-19] MEDS: ENOXAPARIN 40 MG/0.4 ML SYRINGE. SQ SCH (21:36)
[2021-08-19] MEDS: LACTOBACILLUS RHAMNOSUS GG 1 CAPSULE. PO SCH (21:36)
[2021-08-20] MEDS: PIPERACILLIN/TAZOBACTAM 4.5 GM in IV DEXTROSE 5% 100ML 100 ML IV SCH ×4 (00:40→16:51)
[2021-08-20 02:54] VITALS: BP 105/51
[2021-08-20] MEDS: LEVOTHYROXINE 100 MCG TABLET PO SCH (05:50)
[2021-08-20 06:02] LABS: CALCIUM 8.6 mg/dL (8.5-10.1); CREATININE 1.7 mg/dL (0.7-1.3); GFR 40.7; MAGNESIUM 1.5 mg/dL (1.8-2.4); PHOSPHORUS 2.8 mg/dL (2.6-4.7)
[2021-08-20 06:05] LABS: BASO % 0 % (0-3); EOS # 0.2 x10^3/uL (0.0-0.7); EOS % 2 % (0-3); HEMATOCRIT 32.1 % (39.0-53.0); HEMOGLOBIN 10.5 g/dL (13.0-17.5); LYMPH % 13 % (24-48); MEAN CORPUSCULAR HEMOGLOBIN 32 pg (25-35); MEAN CORPUSCULAR HGB CONC 33 g/dL (31-37); MEAN CORPUSCULAR VOLUME 99 fL (79-100); MONO # 0.7 x10^3/uL (0.0-1.1); MONO % 9 % (0-9); NEUT # 6.1 x10^3/uL (1.8-7.7); NEUT % 76 % (31-73); PLATELET COUNT 111 x10^3/uL (140-400); RED BLOOD COUNT 3.23 x10^6/uL (4.30-5.70); RED CELL DISTRIBUTION WIDTH 14.9 % (11.5-14.5)
[2021-08-20 06:07] LABS: POTASSIUM 2.7 mmol/L (3.5-5.1)
[2021-08-20 07:00] VITALS: BP 124/52
[2021-08-20] MEDS ORDERED: POTASSIUM CHLORIDE 20 MEQ TABLET.ER. PO ONE ×2 (07:30→09:30)
[2021-08-20] MEDS ORDERED: MAGNESIUM SULFATE 2GM 50 ML IV ONE (08:15)
[2021-08-20] MEDS: FLUoxetine HCL 20 MG CAPSULE PO SCH (08:29)
[2021-08-20] MEDS: LACTOBACILLUS RHAMNOSUS GG 1 CAPSULE. PO SCH ×2 (08:29→21:00)
[2021-08-20] MEDS: OSELTAMIVIR 30 MG CAPSULE PO SCH ×2 (08:29→21:00)
[2021-08-20] MEDS: ACETAMINOPHEN 325 MG TABLET. PO PRN ×2 (10:58→21:01)
[2021-08-20 11:00] VITALS: BP 109/62
--- NOTE | 2021-08-20 11:20 | PDOC ---
[facility] PROGRESS NOTE Date of Service DOS: DATE: 08/20/21 TIME: 11:18 Chief Complaint Chief Complaint Assessment/Plan Staph bacteremia Acute hypercapnic and hypoxic respiratory failure Influenza a pneumonia TEODORO due to vasomotor nephropathy History of CHF, unknown EF History of COPD History of hypothyroidism History of schizophrenia Pending speciation and sensitivities for bacteremia Continue empiric IV antibiotics Continue Tamiflu BiPAP as needed Strict I's/O Avoid nephrotoxic agents Judicious fluid replacement Pending TTE Pulmonology consulted for COPD and O2 management Lovenox for DVT prophylaxis Protonix GI prophylaxis ADA diet CODE STATUS full Discussed with RN and SW Disposition inpatient management as above DPOA: Undesignated History of Present Illness History of Present Illness 66-year-old male with multiple comorbidities including CHF and COPD and schizoaffective disorder [facility] with with altered mental status and increased O2 requirements. He is at his baseline at 3 L nasal cannula but required 5 L. He also endorses upper respiratory symptoms, rhinorrhea, shortness of breath for the last 3 days. Patient was tachypneic in the ED. Denies any fevers, chest pain or abdominal pain or dysuria at the time. Evaluated this morning patient was lethargic and not responding to me. ABG was drawn showing CO2 level 62. 08/20/2021 No acute events overnight. Patient seen examined bedside. Tolerating well on 95% 5 L nasal cannula. Blood cultures are positive for staph 3 out of 3 sets. We will continue with IV vancomycin. Patient is more alert and awake today. Patient's chart, labs, images were reviewed and discussed with RN Vitals/I&O Vitals/I&O: Vital Signs Date Time Temp Pulse Resp B/P (MAP) Pulse Ox O2 Delivery O2 Flow Rate FiO2 08/20/21 08:00 Nasal Cannula 5.0 08/20/21 07:48 95 08/20/21 07:00 99.0 93 20 124/52 (76) 99.0 I & O 08/19/21 08/19/21 08/20/21 15:00 23:00 07:00 Intake Total 0 ml 180 ml Output Total 975 ml 875 ml Balance 0 ml -795 ml -875 ml Physical Exam General: Alert, Oriented X3, Cooperative Heart: Regular rate Lungs: Wheezing Extremities: No clubbing Skin: No rashes Labs Labs: Laboratory Tests Test 08/20/21 04:05 White Blood Count 8.0 x10^3/uL (4.0-11.0) Red Blood Count 3.23 x10^6/uL (4.30-5.70) Hemoglobin 10.5 g/dL (13.0-17.5) Hematocrit 32.1 % (39.0-53.0) Mean Corpuscular Volume 99 fL (79-100) Mean Corpuscular Hemoglobin 32 pg (25-35) Mean Corpuscular Hemoglobin Concent 33 g/dL (31-37) Red Cell Distribution Width 14.9 % (11.5-14.5) Platelet Count 111 x10^3/uL (140-400) Neutrophils (%) (Auto) 76 % (31-73) Lymphocytes (%) (Auto) 13 % (24-48) Monocytes (%) (Auto) 9 % (0-9) Eosinophils (%) (Auto) 2 % (0-3) Basophils (%) (Auto) 0 % (0-3) Neutrophils # (Auto) 6.1 x10^3/uL (1.8-7.7) Lymphocytes # (Auto) 1.0 x10^3/uL (1.0-4.8) Monocytes # (Auto) 0.7 x10^3/uL (0.0-1.1) Eosinophils # (Auto) 0.2 x10^3/uL (0.0-0.7) Basophils # (Auto) 0.0 x10^3/uL (0.0-0.2) Sodium Level 141 mmol/L (136-145) Potassium Level 2.7 mmol/L (3.5-5.1) Chloride Level 99 mmol/L (98-107) Carbon Dioxide Level 37 mmol/L (21-32) Anion Gap 5 (6-14) Blood Urea Nitrogen 23 mg/dL (8-26) Creatinine 1.7 mg/dL (0.7-1.3) Estimated GFR (Cockcroft-Gault) 40.7 Glucose Level 128 mg/dL (70-99) Calcium Level 8.6 mg/dL (8.5-10.1) Phosphorus Level 2.8 mg/dL (2.6-4.7) Magnesium Level 1.5 mg/dL (1.8-2.4) Assessment and Plan Assessmemt and Plan Problems Medical Problems: (1) Acute and chronic respiratory failure with hypoxia Status: Acute (2) Influenza A Status: Acute (3) Renal insufficiency Status: Acute Comment Review of Relevant I have reviewed the following items merlene (where applicable) has been applied. Medications: Current Medications Medications (Trade) Dose Ordered Sig/Dread Route PRN Reason Start Time Stop Time Status Last Admin Dose Admin Olanzapine (ZyPREXA) 10 mg QHS PO 08/19/21 21:00 08/19/21 21:36 Enoxaparin Sodium (Lovenox 40mg Syringe) 40 mg Q24H SQ 08/19/21 21:00 08/19/21 21:36 Lactobacillus Rhamnosus (Culturelle) 1 cap BID PO 08/19/21 21:00 08/20/21 08:29 Vancomycin HCl (Vanco Per Pharmacy) 1 each PRN DAILY PRN MC SEE COMMENTS 08/19/21 15:30 08/19/21 17:04 Vancomycin HCl 2 gm/Sodium Chloride 500 ml @ 250 mls/hr 1X ONCE IV 08/19/21 16:00 08/19/21 17:59 DC 08/19/21 16:49 Piperacillin Sod/ Tazobactam Sod 4.5 gm/Dextrose 100 ml @ 200 mls/hr Q6HRS IV 08/19/21 18:00 08/20/21 05:51 Potassium Chloride (Klor-Con) 40 meq 1X ONCE PO 08/20/21 07:30 08/20/21 07:31 DC 08/20/21 08:30 Potassium Chloride (Klor-Con) 40 meq 1X ONCE PO 08/20/21 09:30 08/20/21 09:31 DC 08/20/21 09:34 Magnesium Sulfate 50 ml @ 25 mls/hr 1X ONCE IV 08/20/21 08:15 08/20/21 10:14 DC 08/20/21 08:43 Justifications for Admission Other Justification Pneumonia FANNIE HUTCHISON MD Aug 20, 2021 11:20
--- NOTE | 2021-08-20 12:00 | PDOC ---
PULMONARY PROGRESS NOTES DATE: 08/20/21 TIME: 11:59 Subjective Patient now awake and following commands. Off the BiPAP. Vitals Vital Signs Date Time Temp Pulse Resp B/P (MAP) Pulse Ox O2 Delivery O2 Flow Rate FiO2 08/20/21 08:00 Nasal Cannula 5.0 08/20/21 07:48 95 08/20/21 07:00 99.0 93 20 124/52 (76) 99.0 General: Alert, No acute distress Lungs: Clear Cardiovascular: S1, S2 Abdomen: Soft, Non-tender Neuro Exam: Alert Extremities: No Edema Labs Laboratory Tests Test 08/19/21 00:04 08/19/21 00:35 08/19/21 09:42 08/20/21 04:05 White Blood Count 8.3 x10^3/uL (4.0-11.0) 8.0 x10^3/uL (4.0-11.0) Red Blood Count 3.48 x10^6/uL (4.30-5.70) 3.23 x10^6/uL (4.30-5.70) Hemoglobin 11.4 g/dL (13.0-17.5) 10.5 g/dL (13.0-17.5) Hematocrit 33.7 % (39.0-53.0) 32.1 % (39.0-53.0) Mean Corpuscular Volume 97 fL (79-100) 99 fL (79-100) Mean Corpuscular Hemoglobin 33 pg (25-35) 32 pg (25-35) Mean Corpuscular Hemoglobin Concent 34 g/dL (31-37) 33 g/dL (31-37) Red Cell Distribution Width 14.9 % (11.5-14.5) 14.9 % (11.5-14.5) Platelet Count 132 x10^3/uL (140-400) 111 x10^3/uL (140-400) Neutrophils (%) (Auto) 80 % (31-73) 76 % (31-73) Lymphocytes (%) (Auto) 6 % (24-48) 13 % (24-48) Monocytes (%) (Auto) 13 % (0-9) 9 % (0-9) Eosinophils (%) (Auto) 1 % (0-3) 2 % (0-3) Basophils (%) (Auto) 0 % (0-3) 0 % (0-3) Neutrophils # (Auto) 6.6 x10^3/uL (1.8-7.7) 6.1 x10^3/uL (1.8-7.7) Lymphocytes # (Auto) 0.5 x10^3/uL (1.0-4.8) 1.0 x10^3/uL (1.0-4.8) Monocytes # (Auto) 1.0 x10^3/uL (0.0-1.1) 0.7 x10^3/uL (0.0-1.1) Eosinophils # (Auto) 0.1 x10^3/uL (0.0-0.7) 0.2 x10^3/uL (0.0-0.7) Basophils # (Auto) 0.0 x10^3/uL (0.0-0.2) 0.0 x10^3/uL (0.0-0.2) Urine Collection Type Unknown Urine Color (Auto) Light yellow Urine Turbidity Clear Urine pH (Auto) 7.0 (<5.0-8.0) Urine Specific [place] 1.010 (1.000-1.030) Urine Protein (Auto) Negative mg/dL (Negative) Urine Glucose (Auto)(UA) Negative mg/dL (Negative) Urine Ketones (Auto) Negative mg/dL (Negative) Urine Blood (Auto) Trace (Negative) Urine Nitrite Negative (Negative) Urine Bilirubin (Auto) Negative (Negative) Urine Urobilinogen (Auto) Normal mg/dL (Normal) Urine Leukocyte Esterase (Auto) Negative (Negative) Urine RBC 3-5 /HPF (0-2) Urine WBC 0 /HPF (0-4) Urine Squamous Epithelial Cells Occ /LPF Urine Bacteria 0 /HPF (0-FEW) Urine Mucus Slight /LPF Sodium Level 140 mmol/L (136-145) 141 mmol/L (136-145) Potassium Level 3.6 mmol/L (3.5-5.1) 2.7 mmol/L (3.5-5.1) Chloride Level 102 mmol/L (98-107) 99 mmol/L (98-107) Carbon Dioxide Level 31 mmol/L (21-32) 37 mmol/L (21-32) Anion Gap 7 (6-14) 5 (6-14) Blood Urea Nitrogen 25 mg/dL (8-26) 23 mg/dL (8-26) Creatinine 1.8 mg/dL (0.7-1.3) 1.7 mg/dL (0.7-1.3) Estimated GFR (Cockcroft-Gault) 38.1 40.7 BUN/Creatinine Ratio 14 (6-20) Glucose Level 104 mg/dL (70-99) 128 mg/dL (70-99) Lactic Acid Level 1.7 mmol/L (0.4-2.0) Calcium Level 8.5 mg/dL (8.5-10.1) 8.6 mg/dL (8.5-10.1) Total Bilirubin 0.4 mg/dL (0.2-1.0) Aspartate Amino Transf (AST/SGOT) 16 U/L (15-37) Alanine Aminotransferase (ALT/SGPT) 10 U/L (16-63) Alkaline Phosphatase 54 U/L (46-116) Troponin I High Sensitivity 46 ng/L (4-75) IH-Tfz-U-Type Natriuretic Peptide 168 pg/mL (0-124) Total Protein 6.8 g/dL (6.4-8.2) Albumin 3.0 g/dL (3.4-5.0) Albumin/Globulin Ratio 0.8 (1.0-1.7) Procalcitonin 0.23 ng/mL (0.00-0.10) Thyroid Stimulating Hormone (TSH) 0.502 uIU/mL (0.358-3.74) Coronavirus (COVID-19)(PCR) Not detected (NOT DETECTD) Influenza Type A Antigen Positive (NEGATIVE) Influenza Type B Antigen Negative (NEGATIVE) SARS-CoV-2 Antigen (Rapid) Negative (NEGATIVE) O2 Saturation 95 % (92-99) Arterial Blood pH 7.36 (7.35-7.45) Arterial Blood pCO2 at Patient Temp 63 mmHg (35-46) Arterial Blood pO2 at Patient Temp 82 mmHg (65-108) Arterial Blood HCO3 35 mmol/L (21-28) Arterial Blood Base Excess 8 mmol/L (-3-3) FiO2 6 lpm nc Phosphorus Level 2.8 mg/dL (2.6-4.7) Magnesium Level 1.5 mg/dL (1.8-2.4) Laboratory Tests Test 08/20/21 04:05 White Blood Count 8.0 x10^3/uL (4.0-11.0) Red Blood Count 3.23 x10^6/uL (4.30-5.70) Hemoglobin 10.5 g/dL (13.0-17.5) Hematocrit 32.1 % (39.0-53.0) Mean Corpuscular Volume 99 fL (79-100) Mean Corpuscular Hemoglobin 32 pg (25-35) Mean Corpuscular Hemoglobin Concent 33 g/dL (31-37) Red Cell Distribution Width 14.9 % (11.5-14.5) Platelet Count 111 x10^3/uL (140-400) Neutrophils (%) (Auto) 76 % (31-73) Lymphocytes (%) (Auto) 13 % (24-48) Monocytes (%) (Auto) 9 % (0-9) Eosinophils (%) (Auto) 2 % (0-3) Basophils (%) (Auto) 0 % (0-3) Neutrophils # (Auto) 6.1 x10^3/uL (1.8-7.7) Lymphocytes # (Auto) 1.0 x10^3/uL (1.0-4.8) Monocytes # (Auto) 0.7 x10^3/uL (0.0-1.1) Eosinophils # (Auto) 0.2 x10^3/uL (0.0-0.7) Basophils # (Auto) 0.0 x10^3/uL (0.0-0.2) Sodium Level 141 mmol/L (136-145) Potassium Level 2.7 mmol/L (3.5-5.1) Chloride Level 99 mmol/L (98-107) Carbon Dioxide Level 37 mmol/L (21-32) Anion Gap 5 (6-14) Blood Urea Nitrogen 23 mg/dL (8-26) Creatinine 1.7 mg/dL (0.7-1.3) Estimated GFR (Cockcroft-Gault) 40.7 Glucose Level 128 mg/dL (70-99) Calcium Level 8.6 mg/dL (8.5-10.1) Phosphorus Level 2.8 mg/dL (2.6-4.7) Magnesium Level 1.5 mg/dL (1.8-2.4) Medications Active Scripts Medications Dose Route/Sig Max Daily Dose Days Date Category Dose Instructions Prozac (Fluoxetine Hcl) 40 Mg Capsule 1 Cap PO DAILY 08/19/21 Reported Aspercreme (Lidocaine) 1 Each Adh..patch 1 Each TP PRN Q6HRS PRN 08/19/21 Reported Klor-Con M20 (Potassium Chloride) 20 Meq Tab.er.prt 40 Meq PO TID 04/14/20 Reported Miralax (Polyethylene Glycol 3350) 17 Gm Powd.pack 1 Packet PO DAILY PRN 04/14/20 Reported dissolve in water Miralax (Polyethylene Glycol 3350) 17 Gm Powd.pack 1 Pkt PO PRN Q12HRS PRN 04/14/20 Reported Nystatin 15 Gm Cream..g. 1 Elliott TP BID PRN 04/14/20 Reported Duoneb 0.5-3(2.5) Mg/3 Ml (Albuterol/Ipratropium) 3 Ml Ampul.neb 3 Ml NEB Q6HRS PRN 04/14/20 Reported Invega Sustenna (Paliperidone Palmitate) 234 Mg/1.5 Ml Disp.syrin 234 Mg IM [id number] 04/14/20 Reported Furosemide 20 Mg Tablet 3 Tab PO DAILY 04/14/20 Reported [cholecalciferol ] 2,000 Units PO DAILY 04/14/20 Reported Olanzapine 10 Mg Tablet 1 Tab PO QHS 04/13/20 Reported Milk Of Magnesia (Magnesium Hydroxide) 400 Mg/5 Ml Oral.susp 400 Mg PO PRN Q24HRS PRN 04/13/20 Reported Metolazone 2.5 Mg Tablet 2.5 Mg PO DAILY 04/13/20 Reported Levothyroxine Sodium 100 Mcg Tablet 1 Tab PO DAILY 04/13/20 Reported Ibu (Ibuprofen) 400 Mg Tablet 1 Tab PO Q6HRS 5 04/13/20 Reported NEEDED FOR PAIN Divalproex Sodium 500 Mg Tablet.dr 2 Tab PO HS 04/13/20 Reported Docusate Sodium 100 Mg Capsule 1 Cap PO HS 7 04/13/20 Reported [place] Tar 100 Gm Tar 100 Gm MC MON WED SAT 04/13/20 Reported Impression . 1. Acute hypoxic and acute on chronic hypercapnic respiratory failure secondary to underlying influenza pneumonia. 2. Encephalopathy related to influenza pneumonia. Now much improved.. 3. Abnormal chest x-ray with bilateral infiltrates consistent with influenza pneumonia. Plan . 1. Clinically much improved. Off the BiPAP. Following commands. 2. Continue Tamiflu. 3. Continue empiric antibiotics to cover for superimposed bacterial pneumonia. 4. Monitor white cell counts closely. 5. Continue supportive care. 6. We will follow along with you. MELISSA FARAH MD Aug 20, 2021 12:00
--- NOTE | 2021-08-20 12:42 | NUR ---
SS following up with discharge planning. SS reviewed pt chart and discussed with pt RN. Pt is currently requiring oxygen at five liters nasal canula. Flu A positive. Pulmonology following. Pt on IV Vancomycin and IV Zosyn. SS will continue to follow for discharge planning. Addendum: 08/20/21 at 1341 by ROMULO STEINER SS CORRECTION TO PREVIOUS NOTE: Pt is LTC resident from [facility], ; fax [phone].
[2021-08-20] MEDS: CLOTRIMAZOLE 1% TOPICAL CREAM 14GM TUBE. TP SCH (12:45)
[2021-08-20 15:00] VITALS: BP 105/61
[2021-08-20] MEDS ORDERED: VANCOMYCIN 1.75 GM in IV NORMAL SALINE 500ML BAG 500 ML IV SCH (17:00)
[2021-08-20 19:00] VITALS: BP 144/69
[2021-08-20] MEDS: OLANZapine 5 MG TABLET PO SCH (21:00)
[2021-08-20] MEDS: ENOXAPARIN 40 MG/0.4 ML SYRINGE. SQ SCH (21:01)
[2021-08-20 23:00] VITALS: BP 103/62
[2021-08-21] MEDS: PIPERACILLIN/TAZOBACTAM 4.5 GM in IV DEXTROSE 5% 100ML 100 ML IV SCH ×4 (00:23→16:44)
[2021-08-21 02:51] VITALS: BP 131/75
[2021-08-21 04:55] LABS: BASO % 0 % (0-3); EOS # 0.2 x10^3/uL (0.0-0.7); EOS % 2 % (0-3); HEMATOCRIT 34.2 % (39.0-53.0); HEMOGLOBIN 11.2 g/dL (13.0-17.5); LYMPH % 15 % (24-48); MEAN CORPUSCULAR HEMOGLOBIN 33 pg (25-35); MEAN CORPUSCULAR HGB CONC 33 g/dL (31-37); MEAN CORPUSCULAR VOLUME 99 fL (79-100); MONO # 0.7 x10^3/uL (0.0-1.1); MONO % 11 % (0-9); NEUT # 4.9 x10^3/uL (1.8-7.7); NEUT % 72 % (31-73); PLATELET COUNT 113 x10^3/uL (140-400); RED BLOOD COUNT 3.44 x10^6/uL (4.30-5.70); RED CELL DISTRIBUTION WIDTH 14.6 % (11.5-14.5); WHITE BLOOD COUNT 6.8 x10^3/uL (4.0-11.0)
[2021-08-21 05:14] LABS: CALCIUM 9.2 mg/dL (8.5-10.1); CREATININE 1.8 mg/dL (0.7-1.3); GFR 38.1; MAGNESIUM 1.9 mg/dL (1.8-2.4); POTASSIUM 3.3 mmol/L (3.5-5.1)
[2021-08-21] MEDS: LEVOTHYROXINE 100 MCG TABLET PO SCH (06:01)
[2021-08-21] MEDS: ACETAMINOPHEN 325 MG TABLET. PO PRN ×2 (06:37→20:31)
[2021-08-21 07:00] VITALS: BP 110/62
[2021-08-21] MEDS: LACTOBACILLUS RHAMNOSUS GG 1 CAPSULE. PO SCH ×2 (08:07→20:30)
[2021-08-21] MEDS: CLOTRIMAZOLE 1% TOPICAL CREAM 14GM TUBE. TP SCH ×2 (08:08→21:00)
[2021-08-21] MEDS: OSELTAMIVIR 30 MG CAPSULE PO SCH ×2 (08:08→20:31)
[2021-08-21] MEDS: FLUoxetine HCL 20 MG CAPSULE PO SCH (08:08)
--- NOTE | 2021-08-21 09:02 | PDOC ---
PULMONARY PROGRESS NOTES DATE: 08/21/21 TIME: 09:01 Subjective Patient now awake and following commands. Off the BiPAP. Vitals Vital Signs Date Time Temp Pulse Resp B/P (MAP) Pulse Ox O2 Delivery O2 Flow Rate FiO2 08/21/21 08:02 96 Nasal Cannula 5.0 08/21/21 07:00 98.7 86 20 110/62 (78) 98.7 General: Alert, No acute distress Lungs: Clear Cardiovascular: S1, S2 Abdomen: Soft, Non-tender Neuro Exam: Alert Extremities: No Edema Labs Laboratory Tests Test 08/19/21 09:42 08/20/21 04:05 08/21/21 03:45 O2 Saturation 95 % (92-99) Arterial Blood pH 7.36 (7.35-7.45) Arterial Blood pCO2 at Patient Temp 63 mmHg (35-46) Arterial Blood pO2 at Patient Temp 82 mmHg (65-108) Arterial Blood HCO3 35 mmol/L (21-28) Arterial Blood Base Excess 8 mmol/L (-3-3) FiO2 6 lpm nc White Blood Count 8.0 x10^3/uL (4.0-11.0) 6.8 x10^3/uL (4.0-11.0) Red Blood Count 3.23 x10^6/uL (4.30-5.70) 3.44 x10^6/uL (4.30-5.70) Hemoglobin 10.5 g/dL (13.0-17.5) 11.2 g/dL (13.0-17.5) Hematocrit 32.1 % (39.0-53.0) 34.2 % (39.0-53.0) Mean Corpuscular Volume 99 fL (79-100) 99 fL (79-100) Mean Corpuscular Hemoglobin 32 pg (25-35) 33 pg (25-35) Mean Corpuscular Hemoglobin Concent 33 g/dL (31-37) 33 g/dL (31-37) Red Cell Distribution Width 14.9 % (11.5-14.5) 14.6 % (11.5-14.5) Platelet Count 111 x10^3/uL (140-400) 113 x10^3/uL (140-400) Neutrophils (%) (Auto) 76 % (31-73) 72 % (31-73) Lymphocytes (%) (Auto) 13 % (24-48) 15 % (24-48) Monocytes (%) (Auto) 9 % (0-9) 11 % (0-9) Eosinophils (%) (Auto) 2 % (0-3) 2 % (0-3) Basophils (%) (Auto) 0 % (0-3) 0 % (0-3) Neutrophils # (Auto) 6.1 x10^3/uL (1.8-7.7) 4.9 x10^3/uL (1.8-7.7) Lymphocytes # (Auto) 1.0 x10^3/uL (1.0-4.8) 1.0 x10^3/uL (1.0-4.8) Monocytes # (Auto) 0.7 x10^3/uL (0.0-1.1) 0.7 x10^3/uL (0.0-1.1) Eosinophils # (Auto) 0.2 x10^3/uL (0.0-0.7) 0.2 x10^3/uL (0.0-0.7) Basophils # (Auto) 0.0 x10^3/uL (0.0-0.2) 0.0 x10^3/uL (0.0-0.2) Sodium Level 141 mmol/L (136-145) 142 mmol/L (136-145) Potassium Level 2.7 mmol/L (3.5-5.1) 3.3 mmol/L (3.5-5.1) Chloride Level 99 mmol/L (98-107) 100 mmol/L (98-107) Carbon Dioxide Level 37 mmol/L (21-32) 37 mmol/L (21-32) Anion Gap 5 (6-14) 5 (6-14) Blood Urea Nitrogen 23 mg/dL (8-26) 19 mg/dL (8-26) Creatinine 1.7 mg/dL (0.7-1.3) 1.8 mg/dL (0.7-1.3) Estimated GFR (Cockcroft-Gault) 40.7 38.1 Glucose Level 128 mg/dL (70-99) 88 mg/dL (70-99) Calcium Level 8.6 mg/dL (8.5-10.1) 9.2 mg/dL (8.5-10.1) Phosphorus Level 2.8 mg/dL (2.6-4.7) Magnesium Level 1.5 mg/dL (1.8-2.4) 1.9 mg/dL (1.8-2.4) Laboratory Tests Test 08/21/21 03:45 White Blood Count 6.8 x10^3/uL (4.0-11.0) Red Blood Count 3.44 x10^6/uL (4.30-5.70) Hemoglobin 11.2 g/dL (13.0-17.5) Hematocrit 34.2 % (39.0-53.0) Mean Corpuscular Volume 99 fL (79-100) Mean Corpuscular Hemoglobin 33 pg (25-35) Mean Corpuscular Hemoglobin Concent 33 g/dL (31-37) Red Cell Distribution Width 14.6 % (11.5-14.5) Platelet Count 113 x10^3/uL (140-400) Neutrophils (%) (Auto) 72 % (31-73) Lymphocytes (%) (Auto) 15 % (24-48) Monocytes (%) (Auto) 11 % (0-9) Eosinophils (%) (Auto) 2 % (0-3) Basophils (%) (Auto) 0 % (0-3) Neutrophils # (Auto) 4.9 x10^3/uL (1.8-7.7) Lymphocytes # (Auto) 1.0 x10^3/uL (1.0-4.8) Monocytes # (Auto) 0.7 x10^3/uL (0.0-1.1) Eosinophils # (Auto) 0.2 x10^3/uL (0.0-0.7) Basophils # (Auto) 0.0 x10^3/uL (0.0-0.2) Sodium Level 142 mmol/L (136-145) Potassium Level 3.3 mmol/L (3.5-5.1) Chloride Level 100 mmol/L (98-107) Carbon Dioxide Level 37 mmol/L (21-32) Anion Gap 5 (6-14) Blood Urea Nitrogen 19 mg/dL (8-26) Creatinine 1.8 mg/dL (0.7-1.3) Estimated GFR (Cockcroft-Gault) 38.1 Glucose Level 88 mg/dL (70-99) Calcium Level 9.2 mg/dL (8.5-10.1) Magnesium Level 1.9 mg/dL (1.8-2.4) Medications Active Scripts Medications Dose Route/Sig Max Daily Dose Days Date Category Dose Instructions Prozac (Fluoxetine Hcl) 40 Mg Capsule 1 Cap PO DAILY 08/19/21 Reported Aspercreme (Lidocaine) 1 Each Adh..patch 1 Each TP PRN Q6HRS PRN 08/19/21 Reported Klor-Con M20 (Potassium Chloride) 20 Meq Tab.er.prt 40 Meq PO TID 04/14/20 Reported Miralax (Polyethylene Glycol 3350) 17 Gm Powd.pack 1 Packet PO DAILY PRN 04/14/20 Reported dissolve in water Miralax (Polyethylene Glycol 3350) 17 Gm Powd.pack 1 Pkt PO PRN Q12HRS PRN 04/14/20 Reported Nystatin 15 Gm Cream..g. 1 Elliott TP BID PRN 04/14/20 Reported Duoneb 0.5-3(2.5) Mg/3 Ml (Albuterol/Ipratropium) 3 Ml Ampul.neb 3 Ml NEB Q6HRS PRN 04/14/20 Reported Invega Sustenna (Paliperidone Palmitate) 234 Mg/1.5 Ml Disp.syrin 234 Mg IM [id number] 04/14/20 Reported Furosemide 20 Mg Tablet 3 Tab PO DAILY 04/14/20 Reported [cholecalciferol ] 2,000 Units PO DAILY 04/14/20 Reported Olanzapine 10 Mg Tablet 1 Tab PO QHS 04/13/20 Reported Milk Of Magnesia (Magnesium Hydroxide) 400 Mg/5 Ml Oral.susp 400 Mg PO PRN Q24HRS PRN 04/13/20 Reported Metolazone 2.5 Mg Tablet 2.5 Mg PO DAILY 04/13/20 Reported Levothyroxine Sodium 100 Mcg Tablet 1 Tab PO DAILY 04/13/20 Reported Ibu (Ibuprofen) 400 Mg Tablet 1 Tab PO Q6HRS 5 04/13/20 Reported NEEDED FOR PAIN Divalproex Sodium 500 Mg Tablet.dr 2 Tab PO HS 04/13/20 Reported Docusate Sodium 100 Mg Capsule 1 Cap PO HS 7 04/13/20 Reported [place] Tar 100 Gm Tar 100 Gm MON WED SAT 04/13/20 Reported Impression . 1. Acute hypoxic and acute on chronic hypercapnic respiratory failure secondary to underlying influenza pneumonia. 2. Encephalopathy related to influenza pneumonia. Now much improved.. 3. Abnormal chest x-ray with bilateral infiltrates consistent with influenza pneumonia. Plan . 1. Clinically much improved. Off the BiPAP. Following commands. 2. Continue Tamiflu. 3. Continue empiric antibiotics to cover for superimposed bacterial pneumonia. 4. Monitor white cell counts closely. 5. Continue supportive care. 6. We will follow along with you. MELISSA FARAH MD Aug 21, 2021 09:02
[2021-08-21] MEDS: VANCOMYCIN PER PHARMACY MC PRN ×2 (09:18→17:08)
[2021-08-21] MEDS ORDERED: POTASSIUM CHLORIDE 20 MEQ TABLET.ER. PO ONE (09:30)
--- NOTE | 2021-08-21 10:54 | CARD ---
MR#: [id number] Date of Study: 08/20/2021 Ordering Physician: FANNIE HUTCHISON, Referring Physician: FANNIE HUTCHISON, Tech: Les Andrews [facility] APPROVED REPORT EXAM: LIMITED Two-dimensional and M-mode echocardiogram with Doppler and color Doppler. Complete prev ious echo was done 03/09/21. Other Information Quality : FairHR: 81bpm Rhythm : NSR INDICATION Congestive Heart Failure RISK FACTORS Smoking COPD 2D DIMENSIONS Left Atrium(2D)3.2 (1.6-4.0cm)IVSd0.9 (0.7-1.1cm) Aortic Root(2D)3.8 (2.0-3.7cm)LVDd4.7 (3.9-5.9cm) PWd0.9 (0.7-1.1cm)LVDs2.9 (2.5-4.0cm) FS (%) 38.9 %SV72.0 ml LVEF(%)69.3 (>50%) Tricuspid Valve TR P. Qlmhbrew967rh/sTR Peak Gr.23mmHg LEFT VENTRICLE The left ventricle is normal size. There is normal left ventricular wall thickness. The left ventricu lar systolic function is normal and the ejection fraction is within normal range. EF 55% There is nor mal LV segmental wall motion. No left ventricle thrombus noted on this study. There is no ventricular septal defect visualized. There is no left ventricular aneurysm. There is no mass noted in the left ventricle. RIGHT VENTRICLE The right ventricle is normal size. There is normal right ventricular wall thickness. The right ventr icular systolic function is normal. ATRIA The left atrium is mildly dilated. The right atrium size is normal. AORTIC VALVE The aortic valve is normal in structure and function. Doppler and Color Flow revealed no significant aortic regurgitation. There is no significant aortic valvular stenosis. There is no aortic valvular v egetation. MITRAL VALVE The mitral valve is normal in structure and function. There is no evidence of mitral valve prolapse. There is no mitral valve stenosis. Doppler and Color Flow revealed no mitral valve regurgitation note d. TRICUSPID VALVE The tricuspid valve is normal in structure and function. Doppler and Color Flow revealed trace to mil d tricuspid regurgitation. There is no tricuspid valve prolapse or vegetation. There is no tricuspid valve stenosis. PULMONIC VALVE Doppler and Color Flow revealed no pulmonic valvular regurgitation. There is no pulmonic valvular abdiel nosis. GREAT VESSELS The aortic root is normal in size. The ascending aorta is normal in size. The IVC is not well seen. PERICARDIAL EFFUSION There is no pleural effusion. There is no evidence of significant pericardial effusion. Critical Notification Critical Value: No <Conclusion> The left ventricular systolic function is normal and the ejection fraction is within normal range. EF 55% There is normal LV segmental wall motion. Limited echo only. Technically limited study. Signed by : Guy Pizarro, Electronically Approved : 08/21/2021 10:53:54
[2021-08-21 11:00] VITALS: BP 103/59
[2021-08-21 14:22] VITALS: BP 139/77
--- NOTE | 2021-08-21 15:12 | NUR ---
SS following up with discharge planning. SS reviewed pt chart and discussed with pt RN. Pt is LTC resident from [place], ; fax [phone]. Pt is currently requiring oxygen at five liters nasal canula. Pt on IV Vancomycin and IV Zosyn. Pulmonology following. Clinical updates phoned and faxed to [place]. SS will continue to follow for discharge planning.
--- NOTE | 2021-08-21 15:34 | NUR ---
Wound/Ostomy Care Wound Type/Assessment: WC consult for bilateral foot wounds. Pt has fungal rash to bilateral feet as well as DTIs to L lateral foot and anterior ankle, and right lateral foot. Treatment Recommendations/Plan: paint DTIs with skin prep daily and offload at all times Education provided: PU prevention and WC POC discussed with pt and RN Offloading surface/device: float heels, TQ2H Recommended Referrals/Tests: na Discharge Recommendations for dressings: see above
[2021-08-21 16:42] LABS: VANC TR 20.8 mcg/mL (10.0-20.0)
--- NOTE | 2021-08-21 17:09 | NUR ---
Pharmacy Vancomycin Dosing Note S:Consulted to monitor and dose vancomycin started 08/19/21. O:KAMRON CRAFT is a 66 year old M with Bacteremia HCAP . Height: 6 feet, 0 inches Weight: 93.5 kg Eugene Body Weight: 77.60 Adjusted Body Weight: 83.96 Dosing Weight: Other Antibiotics: ZOSYN LABS: Last BUN: 19 Last Creatinine: 1.8 Creatinine Clearance: 48 mL/min Last WBC: 6.8 Last Procalcitonin: Tmax (past 24 hours): 99.7 Microbiology: 08/18 Blood: [facility] 07/09 I/O: 800/2275 Drug Levels: Last Trough level: 20.8 on 08/21/21 at 1617 Last dose given 08/20/21 at 1700 Vancomycin Dosing: Loading Dose: 2000 mg x1 Dosing Weight: Target Trough: 15-20 A: Based on: high trough P: 1. Reduce dose to Vancomycin 1500 mg IV q24h 2. Follow up Trough level as needed. 3. Pharmacy will continue to monitor, follow and adjust therapy as needed. YANNICK SANTANA RP, 08/21/21 [id number]
[2021-08-21 19:32] VITALS: BP 87/57
[2021-08-21] MEDS: OLANZapine 5 MG TABLET PO SCH (20:31)
[2021-08-21] MEDS: ENOXAPARIN 40 MG/0.4 ML SYRINGE. SQ SCH (20:32)
[2021-08-21] MEDS ORDERED: VANCOMYCIN 1.5 GM in IV NORMAL SALINE 500ML BAG 500 ML IV SCH (22:00)
[2021-08-21 22:15] VITALS: BP 87/53
[2021-08-22] MEDS: PIPERACILLIN/TAZOBACTAM 4.5 GM in IV DEXTROSE 5% 100ML 100 ML IV SCH ×5 (00:26→23:22)
[2021-08-22 02:39] VITALS: BP 128/68
[2021-08-22 04:25] LABS: BASO % 1 % (0-3); EOS # 0.2 x10^3/uL (0.0-0.7); EOS % 5 % (0-3); HEMATOCRIT 32.5 % (39.0-53.0); HEMOGLOBIN 10.6 g/dL (13.0-17.5); LYMPH # 0.8 x10^3/uL (1.0-4.8); LYMPH % 18 % (24-48); MEAN CORPUSCULAR HEMOGLOBIN 32 pg (25-35); MEAN CORPUSCULAR HGB CONC 33 g/dL (31-37); MEAN CORPUSCULAR VOLUME 99 fL (79-100); MONO # 0.5 x10^3/uL (0.0-1.1); MONO % 11 % (0-9); NEUT % 66 % (31-73); PLATELET COUNT 131 x10^3/uL (140-400); RED BLOOD COUNT 3.28 x10^6/uL (4.30-5.70); RED CELL DISTRIBUTION WIDTH 14.1 % (11.5-14.5); WHITE BLOOD COUNT 4.6 x10^3/uL (4.0-11.0)
[2021-08-22] MEDS: ACETAMINOPHEN 325 MG TABLET. PO PRN (04:42)
[2021-08-22 05:13] LABS: CALCIUM 9.3 mg/dL (8.5-10.1); CREATININE 1.6 mg/dL (0.7-1.3); GFR 43.6; MAGNESIUM 1.7 mg/dL (1.8-2.4); POTASSIUM 3.4 mmol/L (3.5-5.1)
[2021-08-22] MEDS: LEVOTHYROXINE 100 MCG TABLET PO SCH (05:49)
[2021-08-22 07:55] VITALS: BP 100/63
[2021-08-22] MEDS: FLUoxetine HCL 20 MG CAPSULE PO SCH ×2 (08:42→09:00)
[2021-08-22] MEDS: OSELTAMIVIR 30 MG CAPSULE PO SCH ×3 (08:42→20:57)
[2021-08-22] MEDS: LACTOBACILLUS RHAMNOSUS GG 1 CAPSULE. PO SCH ×3 (08:42→20:57)
[2021-08-22] MEDS: CLOTRIMAZOLE 1% TOPICAL CREAM 14GM TUBE. TP SCH ×2 (08:43→20:58)
[2021-08-22] MEDS ORDERED: POTASSIUM CHLORIDE 20 MEQ TABLET.ER. PO ONE (09:00)
[2021-08-22] MEDS ORDERED: MAGNESIUM SULFATE 2GM 50 ML IV ONE (10:00)
--- NOTE | 2021-08-22 10:30 | PDOC ---
PULMONARY PROGRESS NOTES DATE: 08/22/21 TIME: 10:29 Subjective Patient now awake and following commands. Off the BiPAP. Vitals Vital Signs Date Time Temp Pulse Resp B/P (MAP) Pulse Ox O2 Delivery O2 Flow Rate FiO2 08/22/21 08:00 Nasal Cannula 5.0 08/22/21 07:55 98.7 84 18 100/63 (75) 97 98.7 General: Alert, No acute distress Lungs: Clear Cardiovascular: S1, S2 Abdomen: Soft, Non-tender Neuro Exam: Alert Extremities: No Edema Labs Laboratory Tests Test 08/21/21 03:45 08/21/21 16:17 08/22/21 03:45 White Blood Count 6.8 x10^3/uL (4.0-11.0) 4.6 x10^3/uL (4.0-11.0) Red Blood Count 3.44 x10^6/uL (4.30-5.70) 3.28 x10^6/uL (4.30-5.70) Hemoglobin 11.2 g/dL (13.0-17.5) 10.6 g/dL (13.0-17.5) Hematocrit 34.2 % (39.0-53.0) 32.5 % (39.0-53.0) Mean Corpuscular Volume 99 fL (79-100) 99 fL (79-100) Mean Corpuscular Hemoglobin 33 pg (25-35) 32 pg (25-35) Mean Corpuscular Hemoglobin Concent 33 g/dL (31-37) 33 g/dL (31-37) Red Cell Distribution Width 14.6 % (11.5-14.5) 14.1 % (11.5-14.5) Platelet Count 113 x10^3/uL (140-400) 131 x10^3/uL (140-400) Neutrophils (%) (Auto) 72 % (31-73) 66 % (31-73) Lymphocytes (%) (Auto) 15 % (24-48) 18 % (24-48) Monocytes (%) (Auto) 11 % (0-9) 11 % (0-9) Eosinophils (%) (Auto) 2 % (0-3) 5 % (0-3) Basophils (%) (Auto) 0 % (0-3) 1 % (0-3) Neutrophils # (Auto) 4.9 x10^3/uL (1.8-7.7) 3.0 x10^3/uL (1.8-7.7) Lymphocytes # (Auto) 1.0 x10^3/uL (1.0-4.8) 0.8 x10^3/uL (1.0-4.8) Monocytes # (Auto) 0.7 x10^3/uL (0.0-1.1) 0.5 x10^3/uL (0.0-1.1) Eosinophils # (Auto) 0.2 x10^3/uL (0.0-0.7) 0.2 x10^3/uL (0.0-0.7) Basophils # (Auto) 0.0 x10^3/uL (0.0-0.2) 0.0 x10^3/uL (0.0-0.2) Sodium Level 142 mmol/L (136-145) 141 mmol/L (136-145) Potassium Level 3.3 mmol/L (3.5-5.1) 3.4 mmol/L (3.5-5.1) Chloride Level 100 mmol/L (98-107) 100 mmol/L (98-107) Carbon Dioxide Level 37 mmol/L (21-32) 38 mmol/L (21-32) Anion Gap 5 (6-14) 3 (6-14) Blood Urea Nitrogen 19 mg/dL (8-26) 12 mg/dL (8-26) Creatinine 1.8 mg/dL (0.7-1.3) 1.6 mg/dL (0.7-1.3) Estimated GFR (Cockcroft-Gault) 38.1 43.6 Glucose Level 88 mg/dL (70-99) 81 mg/dL (70-99) Calcium Level 9.2 mg/dL (8.5-10.1) 9.3 mg/dL (8.5-10.1) Magnesium Level 1.9 mg/dL (1.8-2.4) 1.7 mg/dL (1.8-2.4) Vancomycin Level Trough 20.8 mcg/mL (10.0-20.0) Vancomycin Last Dose Date Vancomycin Last Dose Time Laboratory Tests Test 08/21/21 16:17 08/22/21 03:45 Vancomycin Level Trough 20.8 mcg/mL (10.0-20.0) Vancomycin Last Dose Date Vancomycin Last Dose Time White Blood Count 4.6 x10^3/uL (4.0-11.0) Red Blood Count 3.28 x10^6/uL (4.30-5.70) Hemoglobin 10.6 g/dL (13.0-17.5) Hematocrit 32.5 % (39.0-53.0) Mean Corpuscular Volume 99 fL (79-100) Mean Corpuscular Hemoglobin 32 pg (25-35) Mean Corpuscular Hemoglobin Concent 33 g/dL (31-37) Red Cell Distribution Width 14.1 % (11.5-14.5) Platelet Count 131 x10^3/uL (140-400) Neutrophils (%) (Auto) 66 % (31-73) Lymphocytes (%) (Auto) 18 % (24-48) Monocytes (%) (Auto) 11 % (0-9) Eosinophils (%) (Auto) 5 % (0-3) Basophils (%) (Auto) 1 % (0-3) Neutrophils # (Auto) 3.0 x10^3/uL (1.8-7.7) Lymphocytes # (Auto) 0.8 x10^3/uL (1.0-4.8) Monocytes # (Auto) 0.5 x10^3/uL (0.0-1.1) Eosinophils # (Auto) 0.2 x10^3/uL (0.0-0.7) Basophils # (Auto) 0.0 x10^3/uL (0.0-0.2) Sodium Level 141 mmol/L (136-145) Potassium Level 3.4 mmol/L (3.5-5.1) Chloride Level 100 mmol/L (98-107) Carbon Dioxide Level 38 mmol/L (21-32) Anion Gap 3 (6-14) Blood Urea Nitrogen 12 mg/dL (8-26) Creatinine 1.6 mg/dL (0.7-1.3) Estimated GFR (Cockcroft-Gault) 43.6 Glucose Level 81 mg/dL (70-99) Calcium Level 9.3 mg/dL (8.5-10.1) Magnesium Level 1.7 mg/dL (1.8-2.4) Medications Active Scripts Medications Dose Route/Sig Max Daily Dose Days Date Category Dose Instructions Prozac (Fluoxetine Hcl) 40 Mg Capsule 1 Cap PO DAILY 08/19/21 Reported Aspercreme (Lidocaine) 1 Each Adh..patch 1 Each TP PRN Q6HRS PRN 08/19/21 Reported Klor-Con M20 (Potassium Chloride) 20 Meq Tab.er.prt 40 Meq PO TID 04/14/20 Reported Miralax (Polyethylene Glycol 3350) 17 Gm Powd.pack 1 Packet PO DAILY PRN 04/14/20 Reported dissolve in water Miralax (Polyethylene Glycol 3350) 17 Gm Powd.pack 1 Pkt PO PRN Q12HRS PRN 04/14/20 Reported Nystatin 15 Gm Cream..g. 1 Elliott TP BID PRN 04/14/20 Reported Duoneb 0.5-3(2.5) Mg/3 Ml (Albuterol/Ipratropium) 3 Ml Ampul.neb 3 Ml NEB Q6HRS PRN 04/14/20 Reported Invega Sustenna (Paliperidone Palmitate) 234 Mg/1.5 Ml Disp.syrin 234 Mg IM [id number] 04/14/20 Reported Furosemide 20 Mg Tablet 3 Tab PO DAILY 04/14/20 Reported [cholecalciferol ] 2,000 Units PO DAILY 04/14/20 Reported Olanzapine 10 Mg Tablet 1 Tab PO QHS 04/13/20 Reported Milk Of Magnesia (Magnesium Hydroxide) 400 Mg/5 Ml Oral.susp 400 Mg PO PRN Q24HRS PRN 04/13/20 Reported Metolazone 2.5 Mg Tablet 2.5 Mg PO DAILY 04/13/20 Reported Levothyroxine Sodium 100 Mcg Tablet 1 Tab PO DAILY 04/13/20 Reported Ibu (Ibuprofen) 400 Mg Tablet 1 Tab PO Q6HRS 5 04/13/20 Reported NEEDED FOR PAIN Divalproex Sodium 500 Mg Tablet.dr 2 Tab PO HS 04/13/20 Reported Docusate Sodium 100 Mg Capsule 1 Cap PO HS 7 04/13/20 Reported Thayer Tar 100 Gm Tar 100 Gm MC MON WED SAT 04/13/20 Reported Impression . 1. Acute hypoxic and acute on chronic hypercapnic respiratory failure secondary to underlying influenza pneumonia. 2. Encephalopathy related to influenza pneumonia. Now much improved.. 3. Abnormal chest x-ray with bilateral infiltrates consistent with influenza pneumonia. Plan . 1. Clinically much improved. Off the BiPAP. Following commands. 2. Continue Tamiflu. 3. Continue empiric antibiotics to cover for superimposed bacterial pneumonia. 4. Monitor white cell counts closely. 5. Continue supportive care. 6. We will follow along with you. MELISSA FARAH MD Aug 22, 2021 10:30
[2021-08-22 11:39] VITALS: BP 121/72
[2021-08-22] MEDS: VANCOMYCIN PER PHARMACY MC PRN (11:46)
--- NOTE | 2021-08-22 11:46 | NUR ---
Pharmacy Vancomycin Dosing Note S: Consulted to monitor and dose vancomycin started 08/19/21. O: KAMRON CRAFT is a 66 year old M with Bacteremia HCAP, . Other Antibiotics: ZOSYN LABS: Last BUN: 19 Last Creatinine: 1.6 Creatinine Clearance: 43.6 mL/min Last WBC: 4.6 Last Procalcitonin: Tmax (past 24 hours): 99.4 Microbiology: 08/18 Blood: [facility] 07/09 I/O: 800/2275 Drug Levels: Last Trough level: 20.8 on 08/21/21 at 1617 Last dose given 08/21/21 at 2206 Vancomycin Dosing: Dosing Weight: Target Trough: 15-20 A: Based on: P: 1. Vancomycin 1500 mg IV q24h 2. Follow up Trough level on 08/23/21 at 2130 3. Pharmacy will continue to monitor, follow and adjust therapy as needed. PAULETTE ZAMBRANO RPH, 08/22/21 [id number]
--- NOTE | 2021-08-22 12:34 | PDOC ---
[employer] PROGRESS NOTE Date of Service DOS: DATE: 08/22/21 TIME: 12:33 Chief Complaint Chief Complaint Assessment/Plan Staph hemolyticus and epidermidis bacteremia Acute hypercapnic and hypoxic respiratory failure Influenza a pneumonia TEODORO due to vasomotor nephropathy History of CHF, unknown EF History of COPD History of hypothyroidism History of schizophrenia Pending sensitivities for staph infection ID consult for antibiotic management Continue empiric IV antibiotics Continue Tamiflu BiPAP as needed Strict I's/O Avoid nephrotoxic agents Judicious fluid replacement Pending TTE Pulmonology consulted for COPD and O2 management Lovenox for DVT prophylaxis Protonix GI prophylaxis ADA diet CODE STATUS full Discussed with RN and SW Disposition inpatient management as above DPOA: Undesignated History of Present Illness History of Present Illness 66-year-old male with multiple comorbidities including CHF and COPD and schizoaffective disorder who comes from senior living with with altered mental status and increased O2 requirements. He is at his baseline at 3 L nasal cannula but required 5 L. He also endorses upper respiratory symptoms, rhinorrhea, shortness of breath for the last 3 days. Patient was tachypneic in the ED. Denies any fevers, chest pain or abdominal pain or dysuria at the time. Evaluated this morning patient was lethargic and not responding to me. ABG was drawn showing CO2 level 62. 08/20/2021 No acute events overnight. Patient seen examined bedside. Tolerating well on 95% 5 L nasal cannula. Blood cultures are positive for staph 3 out of 3 sets. We will continue with IV vancomycin. Patient is more alert and awake today. Patient's chart, labs, images were reviewed and discussed with RN 08/21/2021 No acute events overnight. Patient seen examined bedside. Patient still improving. Pending blood culture sensitivities and speciation. Continue empiric IV antibiotics. Patient's chart, labs, images were reviewed and discussed with RN Vitals/I&O Vitals/I&O: Vital Signs Date Time Temp Pulse Resp B/P (MAP) Pulse Ox O2 Delivery O2 Flow Rate FiO2 08/22/21 11:39 98.4 72 18 121/72 (88) 97 Nasal Cannula 5.0 98.4 I & O 08/21/21 08/21/21 08/22/21 15:00 23:00 07:00 Intake Total 400 ml Output Total 575 ml 720 ml Balance -575 ml -320 ml Physical Exam General: Alert, Oriented X3, Cooperative Heart: Regular rate Lungs: Clear Extremities: No clubbing Skin: No rashes Labs Labs: Laboratory Tests Test 08/21/21 16:17 08/22/21 03:45 Vancomycin Level Trough 20.8 mcg/mL (10.0-20.0) Vancomycin Last Dose Date Vancomycin Last Dose Time White Blood Count 4.6 x10^3/uL (4.0-11.0) Red Blood Count 3.28 x10^6/uL (4.30-5.70) Hemoglobin 10.6 g/dL (13.0-17.5) Hematocrit 32.5 % (39.0-53.0) Mean Corpuscular Volume 99 fL (79-100) Mean Corpuscular Hemoglobin 32 pg (25-35) Mean Corpuscular Hemoglobin Concent 33 g/dL (31-37) Red Cell Distribution Width 14.1 % (11.5-14.5) Platelet Count 131 x10^3/uL (140-400) Neutrophils (%) (Auto) 66 % (31-73) Lymphocytes (%) (Auto) 18 % (24-48) Monocytes (%) (Auto) 11 % (0-9) Eosinophils (%) (Auto) 5 % (0-3) Basophils (%) (Auto) 1 % (0-3) Neutrophils # (Auto) 3.0 x10^3/uL (1.8-7.7) Lymphocytes # (Auto) 0.8 x10^3/uL (1.0-4.8) Monocytes # (Auto) 0.5 x10^3/uL (0.0-1.1) Eosinophils # (Auto) 0.2 x10^3/uL (0.0-0.7) Basophils # (Auto) 0.0 x10^3/uL (0.0-0.2) Sodium Level 141 mmol/L (136-145) Potassium Level 3.4 mmol/L (3.5-5.1) Chloride Level 100 mmol/L (98-107) Carbon Dioxide Level 38 mmol/L (21-32) Anion Gap 3 (6-14) Blood Urea Nitrogen 12 mg/dL (8-26) Creatinine 1.6 mg/dL (0.7-1.3) Estimated GFR (Cockcroft-Gault) 43.6 Glucose Level 81 mg/dL (70-99) Calcium Level 9.3 mg/dL (8.5-10.1) Magnesium Level 1.7 mg/dL (1.8-2.4) Assessment and Plan Assessmemt and Plan Problems Medical Problems: (1) Acute and chronic respiratory failure with hypoxia Status: Acute (2) Influenza A Status: Acute (3) Renal insufficiency Status: Acute Comment Review of Relevant I have reviewed the following items merlene (where applicable) has been applied. Medications: Current Medications Medications (Trade) Dose Ordered Sig/Dread Route PRN Reason Start Time Stop Time Status Last Admin Dose Admin Vancomycin HCl (Vancomycin Trough Level) 1 each 1X ONCE MC 08/21/21 16:30 08/21/21 16:31 DC 08/21/21 16:30 Vancomycin HCl 1.5 gm/Sodium Chloride 500 ml @ 250 mls/hr Q24H IV 08/21/21 22:00 08/21/21 22:06 Potassium Chloride (Klor-Con) 40 meq 1X ONCE PO 08/22/21 09:00 08/22/21 09:24 DC 08/22/21 09:00 Magnesium Sulfate 50 ml @ 25 mls/hr 1X ONCE IV 08/22/21 10:00 08/22/21 11:59 DC 08/22/21 09:46 Justifications for Admission Other Justification Pneumonia FANNIE HUTCHISON MD Aug 22, 2021 12:34
[2021-08-22 14:50] VITALS: BP 111/61
[2021-08-22 19:30] VITALS: BP 118/71
--- NOTE | 2021-08-22 19:49 | CONS ---
DATE OF CONSULTATION: 08/22/2021 REQUESTING PHYSICIAN: Dr. Nascimento. REASON FOR CONSULTATION: Blood culture positive. HISTORY OF PRESENT ILLNESS: This is a 66-year-old gentleman who is a skilled nursing resident with schizoaffective disorder, who came in with shortness of breath. The patient was found to have influenza A positive, congestive heart failure, pulmonary infiltrate and blood cultures are positive with coag-negative staph, hence consultation. The patient is receiving vancomycin and Zosyn and consult requested. The patient denies any nausea, vomiting, diarrhea. Denies any chest pain, shortness of breath. Right now, the patient's oxygen has improved compared to when he came in. Denies any abdominal pain, urinary symptoms or bowel symptoms. PAST MEDICAL HISTORY: Positive for congestive heart failure, COPD, schizophrenia, hypothyroidism, history of depression. SOCIAL HISTORY: Negative for drugs, alcohol use or smoking. Lives in a skilled nursing. ALLERGIES: LISTED ALLERGIC TO HALOPERIDOL. CURRENT MEDICATIONS: The patient is on vancomycin and Zosyn. Review of system: As per HPI all other systems reviewed and are negative PHYSICAL EXAMINATION: GENERAL: Alert, oriented gentleman who is not in any distress. VITAL SIGNS: Temperature 99.4, pulse 77, respirations 18, blood pressure 87/57. HEENT: Both pupils are round and reacting. No conjunctival lesion, no lesion in the mouth. NECK: Supple, no JVP, no lymphadenopathy. LUNGS: Clear. HEART: S1, S2, regular. ABDOMEN: Benign, soft, nontender, no organomegaly. EXTREMITIES: No edema or cyanosis. SKIN: Unremarkable. Edema actually has improved with the support stockings are in place. NEUROLOGIC: The patient is able to communicate, but very cherry, sometimes is agitated, sometimes is nice according to RN. LABORATORY DATA: White count is 4.6, hemoglobin 10.6, platelets 131,000. BUN and creatinine is 12 and 1.6. Vancomycin level is 20.8. Urinalysis unremarkable. Influenza screen A positive. COVID negative. On 08/18, blood culture is positive with Staphylococcus epidermidis and Staphylococcus hominis, 2 species, and then repeat culture on showed Staphylococcus haemolyticus. IMPRESSION: 1. Blood culture positive with 3 different species, 2 different days. It is a contaminant. 2. Influenza A positive. 3. Pulmonary infiltrate, probably combination of congestive heart failure and possible secondary infection. 4. Schizoaffective disorder. 5. Congestive heart failure. 6. Chronic obstructive pulmonary disease. 7. Hypothyroidism. RECOMMENDATIONS: Discontinue vancomycin, continue Zosyn, supportive care and will soon to be able to switch over to oral. Thank you very much, Dr. Nascimento, for giving me opportunity to participate in this patient's care. GRICEL/JONATHAN DR: Branden TID: [id number] MTDD
[2021-08-22] MEDS: ENOXAPARIN 40 MG/0.4 ML SYRINGE. SQ SCH (20:58)
[2021-08-22] MEDS: OLANZapine 5 MG TABLET PO SCH (20:58)
[2021-08-22 22:20] VITALS: BP 134/76
[2021-08-23 02:02] VITALS: BP 115/67
[2021-08-23] MEDS: LEVOTHYROXINE 100 MCG TABLET PO SCH (05:55)
[2021-08-23] MEDS: PIPERACILLIN/TAZOBACTAM 4.5 GM in IV DEXTROSE 5% 100ML 100 ML IV SCH ×4 (05:55→23:37)
[2021-08-23 06:00] VITALS: BP 130/68
--- NOTE | 2021-08-23 08:10 | PDOC ---
PULMONARY PROGRESS NOTES DATE: 08/23/21 TIME: 08:09 Subjective Patient awake and following commands. Reports having BM and feels better Off the BiPAP. Vitals Vital Signs Date Time Temp Pulse Resp B/P (MAP) Pulse Ox O2 Delivery O2 Flow Rate FiO2 08/23/21 06:00 98.2 81 18 130/68 (88) 96 Nasal Cannula 5.0 98.2 General: Alert, No acute distress Lungs: Clear Cardiovascular: S1, S2 Abdomen: Soft, Non-tender Neuro Exam: Alert Extremities: No Edema Labs Laboratory Tests Test 08/21/21 16:17 08/22/21 03:45 Vancomycin Level Trough 20.8 mcg/mL (10.0-20.0) Vancomycin Last Dose Date Vancomycin Last Dose Time White Blood Count 4.6 x10^3/uL (4.0-11.0) Red Blood Count 3.28 x10^6/uL (4.30-5.70) Hemoglobin 10.6 g/dL (13.0-17.5) Hematocrit 32.5 % (39.0-53.0) Mean Corpuscular Volume 99 fL (79-100) Mean Corpuscular Hemoglobin 32 pg (25-35) Mean Corpuscular Hemoglobin Concent 33 g/dL (31-37) Red Cell Distribution Width 14.1 % (11.5-14.5) Platelet Count 131 x10^3/uL (140-400) Neutrophils (%) (Auto) 66 % (31-73) Lymphocytes (%) (Auto) 18 % (24-48) Monocytes (%) (Auto) 11 % (0-9) Eosinophils (%) (Auto) 5 % (0-3) Basophils (%) (Auto) 1 % (0-3) Neutrophils # (Auto) 3.0 x10^3/uL (1.8-7.7) Lymphocytes # (Auto) 0.8 x10^3/uL (1.0-4.8) Monocytes # (Auto) 0.5 x10^3/uL (0.0-1.1) Eosinophils # (Auto) 0.2 x10^3/uL (0.0-0.7) Basophils # (Auto) 0.0 x10^3/uL (0.0-0.2) Sodium Level 141 mmol/L (136-145) Potassium Level 3.4 mmol/L (3.5-5.1) Chloride Level 100 mmol/L (98-107) Carbon Dioxide Level 38 mmol/L (21-32) Anion Gap 3 (6-14) Blood Urea Nitrogen 12 mg/dL (8-26) Creatinine 1.6 mg/dL (0.7-1.3) Estimated GFR (Cockcroft-Gault) 43.6 Glucose Level 81 mg/dL (70-99) Calcium Level 9.3 mg/dL (8.5-10.1) Magnesium Level 1.7 mg/dL (1.8-2.4) Medications Active Scripts Medications Dose Route/Sig Max Daily Dose Days Date Category Dose Instructions Prozac (Fluoxetine Hcl) 40 Mg Capsule 1 Cap PO DAILY 08/19/21 Reported Aspercreme (Lidocaine) 1 Each Adh..patch 1 Each TP PRN Q6HRS PRN 08/19/21 Reported Klor-Con M20 (Potassium Chloride) 20 Meq Tab.er.prt 40 Meq PO TID 04/14/20 Reported Miralax (Polyethylene Glycol 3350) 17 Gm Powd.pack 1 Packet PO DAILY PRN 04/14/20 Reported dissolve in water Miralax (Polyethylene Glycol 3350) 17 Gm Powd.pack 1 Pkt PO PRN Q12HRS PRN 04/14/20 Reported Nystatin 15 Gm Cream..g. 1 Elliott TP BID PRN 04/14/20 Reported Duoneb 0.5-3(2.5) Mg/3 Ml (Albuterol/Ipratropium) 3 Ml Ampul.neb 3 Ml NEB Q6HRS PRN 04/14/20 Reported Invega Sustenna (Paliperidone Palmitate) 234 Mg/1.5 Ml Disp.syrin 234 Mg IM [id number] 04/14/20 Reported Furosemide 20 Mg Tablet 3 Tab PO DAILY 04/14/20 Reported [cholecalciferol ] 2,000 Units PO DAILY 04/14/20 Reported Olanzapine 10 Mg Tablet 1 Tab PO QHS 04/13/20 Reported Milk Of Magnesia (Magnesium Hydroxide) 400 Mg/5 Ml Oral.susp 400 Mg PO PRN Q24HRS PRN 04/13/20 Reported Metolazone 2.5 Mg Tablet 2.5 Mg PO DAILY 04/13/20 Reported Levothyroxine Sodium 100 Mcg Tablet 1 Tab PO DAILY 04/13/20 Reported Ibu (Ibuprofen) 400 Mg Tablet 1 Tab PO Q6HRS 5 04/13/20 Reported NEEDED FOR PAIN Divalproex Sodium 500 Mg Tablet.dr 2 Tab PO HS 04/13/20 Reported Docusate Sodium 100 Mg Capsule 1 Cap PO HS 7 04/13/20 Reported [place] Tar 100 Gm Tar 100 Gm MC MON WED SAT 04/13/20 Reported Impression . 1. Acute hypoxic and acute on chronic hypercapnic respiratory failure secondary to underlying influenza pneumonia. 2. Encephalopathy related to influenza pneumonia. Now much improved.. 3. Abnormal chest x-ray with bilateral infiltrates consistent with influenza pneumonia. Plan . 1. Clinically much improved. Off the BiPAP. Following commands. 2. 5 days of Tamiflu. 3. Continue empiric antibiotics to cover for superimposed bacterial pneumonia. 4. Monitor white cell counts closely. 5. Continue supportive care. 6. We will follow along with you. 7. Discharge plans per PCP MELISSA FARAH MD Aug 23, 2021 08:10
[2021-08-23] MEDS: LACTOBACILLUS RHAMNOSUS GG 1 CAPSULE. PO SCH ×2 (08:57→20:45)
[2021-08-23] MEDS: FLUoxetine HCL 20 MG CAPSULE PO SCH (08:57)
[2021-08-23] MEDS: OSELTAMIVIR 30 MG CAPSULE PO SCH ×2 (08:57→20:45)
[2021-08-23] MEDS: CLOTRIMAZOLE 1% TOPICAL CREAM 14GM TUBE. TP SCH ×2 (08:57→20:46)
[2021-08-23 11:00] VITALS: BP 102/68
--- NOTE | 2021-08-23 11:06 | PDOC ---
Infectious Disease Note Subjective Subjective Patient is feeling good appears to be back to his baseline ROS ROS No nausea vomiting diarrhea chest pain shortness of breath Vital Sign Vital Signs Vital Signs Date Time Temp Pulse Resp B/P (MAP) Pulse Ox O2 Delivery O2 Flow Rate FiO2 08/23/21 08:00 Nasal Cannula 5.0 08/23/21 06:00 98.2 81 18 130/68 (88) 96 98.2 Physical Exam PHYSICAL EXAM GENERAL: Alert, oriented gentleman who is not in any distress. VITAL SIGNS: Stable HEENT: Both pupils are round and reacting. No conjunctival lesion, no lesion in the mouth. NECK: Supple, no JVP, no lymphadenopathy. LUNGS: Clear. HEART: S1, S2, regular. ABDOMEN: Benign, soft, nontender, no organomegaly. EXTREMITIES: No edema or cyanosis. SKIN: Unremarkable. Edema actually has improved with the support stockings are in place. NEUROLOGIC: The patient is able to communicate, but very cherry, sometimes is agitated, sometimes is nice according to RN. Labs Micro Microbiology 08/19/21 Blood Culture - Final, Complete Staphylococcus Haemolyticus Objective Assessment IMPRESSION: 1. Blood culture positive with 3 different species, 2 different days. It is a contaminant. 2. Influenza A positive. 3. Pulmonary infiltrate, probably combination of congestive heart failure and possible secondary infection. 4. Schizoaffective disorder. 5. Congestive heart failure. 6. Chronic obstructive pulmonary disease. 7. Hypothyroidism. Plan Plan of Care Zosyn can be changed to Augmentin for possible discharge soon PT OT CRUZ TELLEZ MD Aug 23, 2021 11:06
[2021-08-23] MEDS ORDERED: AMOX1TAB58 PO (12:51)
[2021-08-23] MEDS ORDERED: CLOTRIMAZOLE 1% TP (12:54)
--- NOTE | 2021-08-23 12:55 | SNU/HH DC ---
DISCHARGE ORDERS DISCHARGE INFORMATION: DISCHARGE DATE: Aug 23, 2021 FINAL DIAGNOSIS Problems Medical Problems: (1) Acute and chronic respiratory failure with hypoxia Status: Acute (2) Influenza A Status: Acute (3) Renal insufficiency Status: Acute CONDITION ON DISCHARGE: Stable POST DISCHARGE ORDERS: ACTIVITY ORDERS: Activity as tolerated WEIGHT BEARING STATUS: As tolerated DIET AFTER DISCHARGE: Cardiac CHECKS AFTER DISCHARGE: CHECKS AFTER DISCHARGE: Check blood press - daily, Check your Temp as needed FOLLOW-UP: PHYSICIAN FOLLOW-UP: PCP at [facility] ADDITIONAL FOLLOW-UP: Pulmonology as needed or as scheduled LAB ORDERS FOR FOLLOW-UP: CBC, CMP in 1 week TREATMENT/EQUIPMENT ORDERS: ADAPTIVE EQUIPMENT NEEDED: None DISCHARGE MEDICATIONS: Home Meds Active Scripts [Clotrimazole 1% Topical] 1 RASHAD RASHAD No Conflict Check, 1 RASHAD TP BID for fungal foot infection for 14 Days, #1 BOTTLE Prov:FANNIE HUTCHISON MD 08/23/21 Amoxicillin/Potassium Clav (AUGMENTIN 500-125 TABLET) 1 Each Tablet, 1 TAB PO BID for Staph bacteremia for 5 Days, #10 TAB 0 Refills Prov:FANNIE HUTCHISON MD 08/23/21 Reported Medications Fluoxetine Hcl (PROZAC) 40 Mg Capsule, 1 CAP PO DAILY for , #30 CAP 3 Refills 08/19/21 Lidocaine (Aspercreme) 1 Each Adh..patch, 1 EACH TP PRN Q6HRS PRN for PAIN, PATCH 08/19/21 Potassium Chloride (KLOR-CON M20) 20 Meq Tab.er.prt, 40 MEQ PO TID for hypokalemia, TAB.SR 04/14/20 Polyethylene Glycol 3350 (MIRALAX) 17 Gm Powd.pack, 1 PACKET PO DAILY PRN for CONSTIPATION, #30 PACKET 0 Refills dissolve in water 04/14/20 Polyethylene Glycol 3350 (MIRALAX) 17 Gm Powd.pack, 1 PKT PO PRN Q12HRS PRN for CONSTIPATION, PKT 04/14/20 Nystatin (NYSTATIN) 15 Gm Cream..g., 1 RASHAD TP BID PRN for redness/gaulding r/t candidias, #30 GM 04/14/20 Ipratropium/Albuterol Sulfate (DUONEB 0.5-3(2.5) MG/3 ML) 3 Ml Ampul.neb, 3 ML NEB Q6HRS PRN for low oxygen saturation, EACH 04/14/20 Paliperidone Palmitate (INVEGA SUSTENNA) 234 Mg/1.5 Ml Disp.syrin, 234 MG IM [id number] for scizoaffective disorder, DIS.SYR 04/14/20 Furosemide (FUROSEMIDE) 20 Mg Tablet, 3 TAB PO DAILY for heart failure, #90 TAB 3 Refills 04/14/20 [cholecalciferol ] No Conflict Check, 2000 UNITS PO DAILY for vitamin D deficiency 04/14/20 Olanzapine (OLANZAPINE) 10 Mg Tablet, 1 TAB PO QHS for SCHIZOAFFECTIVE DISORDER, #30 TAB 04/13/20 Magnesium Hydroxide (MILK OF MAGNESIA) 400 Mg/5 Ml Oral.susp, 400 MG PO PRN Q24HRS PRN for VOMITING, MISC 04/13/20 Metolazone (METOLAZONE) 2.5 Mg Tablet, 2.5 MG PO DAILY for COPD, #30 TAB 0 Refills 04/13/20 Levothyroxine Sodium (LEVOTHYROXINE SODIUM) 100 Mcg Tablet, 1 TAB PO DAILY for HYPOTHYROIDISM, #30 TAB 5 Refills 04/13/20 Ibuprofen (Ibu) 400 Mg Tablet, 1 TAB PO Q6HRS for PAIN for 5 Days, #20 TAB 0 Refills NEEDED FOR PAIN 04/13/20 Divalproex Sodium (DIVALPROEX SODIUM) 500 Mg Tablet.dr, 2 TAB PO HS for SCHIZOAFFECTIVE DISORDER, #60 TAB 1 Refill 04/13/20 Docusate Sodium (DOCUSATE SODIUM) 100 Mg Capsule, 1 CAP PO HS for constipation for 7 Days, #7 CAP 0 Refills 04/13/20 [place] Tar (COAL TAR) 100 Gm Tar, 100 GM MC MON WED SAT for Seborrhea Capitis, MISC 04/13/20 FANNIE HUTCHISON MD Aug 23, 2021 12:55
[2021-08-23 15:00] VITALS: BP 94/54
[2021-08-23 19:12] VITALS: BP 134/67
[2021-08-23] MEDS: OLANZapine 5 MG TABLET PO SCH (20:45)
[2021-08-23] MEDS: ENOXAPARIN 40 MG/0.4 ML SYRINGE. SQ SCH (20:46)
[2021-08-23 23:10] VITALS: BP 117/65
[2021-08-24 03:08] VITALS: BP 91/52
[2021-08-24] MEDS: LEVOTHYROXINE 100 MCG TABLET PO SCH (06:05)
[2021-08-24] MEDS: PIPERACILLIN/TAZOBACTAM 4.5 GM in IV DEXTROSE 5% 100ML 100 ML IV SCH (06:05)
[2021-08-24 07:00] VITALS: BP 91/54
[2021-08-24] MEDS: CLOTRIMAZOLE 1% TOPICAL CREAM 14GM TUBE. TP SCH (09:00)
[2021-08-24] MEDS: LACTOBACILLUS RHAMNOSUS GG 1 CAPSULE. PO SCH (09:32)
[2021-08-24] MEDS: FLUoxetine HCL 20 MG CAPSULE PO SCH (09:32)
[2021-08-24 11:00] VITALS: BP 132/77
--- NOTE | 2021-08-24 11:28 | SNU/HH DC ---
DISCHARGE ORDERS DISCHARGE INFORMATION: DISCHARGE DATE: Aug 24, 2021 FINAL DIAGNOSIS Problems Medical Problems: (1) Acute and chronic respiratory failure with hypoxia Status: Acute (2) Influenza A Status: Acute (3) Renal insufficiency Status: Acute CONDITION ON DISCHARGE: Stable CODE STATUS: Code Status: Full NURSING HOME: SNF STAY <30 DAYS: No POST DISCHARGE ORDERS: ACTIVITY ORDERS: Activity as tolerated WEIGHT BEARING STATUS: As tolerated DIET AFTER DISCHARGE: Cardiac CHECKS AFTER DISCHARGE: CHECKS AFTER DISCHARGE: Check blood press - daily, Check your Temp as needed FOLLOW-UP: PHYSICIAN FOLLOW-UP: PCP at [facility] ADDITIONAL FOLLOW-UP: Pulmonology as needed or as scheduled LAB ORDERS FOR FOLLOW-UP: CBC, CMP in 1 week TREATMENT/EQUIPMENT ORDERS: ADAPTIVE EQUIPMENT NEEDED: None DISCHARGE MEDICATIONS: Home Meds Active Scripts [Clotrimazole 1% Topical] 1 RASHAD RASHAD No Conflict Check, 1 RASHAD TP BID for fungal foot infection for 14 Days, #1 BOTTLE Prov:FANNIE HUTCHISON MD 08/23/21 Amoxicillin/Potassium Clav (AUGMENTIN 500-125 TABLET) 1 Each Tablet, 1 TAB PO BID for Staph bacteremia for 5 Days, #10 TAB 0 Refills Prov:FANNIE HUTCHISON MD 08/23/21 Reported Medications Fluoxetine Hcl (PROZAC) 40 Mg Capsule, 1 CAP PO DAILY for , #30 CAP 3 Refills 08/19/21 Lidocaine (Aspercreme) 1 Each Adh..patch, 1 EACH TP PRN Q6HRS PRN for PAIN, PATCH 08/19/21 Potassium Chloride (KLOR-CON M20) 20 Meq Tab.er.prt, 40 MEQ PO TID for hypokalemia, TAB.SR 04/14/20 Polyethylene Glycol 3350 (MIRALAX) 17 Gm Powd.pack, 1 PACKET PO DAILY PRN for CONSTIPATION, #30 PACKET 0 Refills dissolve in water 04/14/20 Polyethylene Glycol 3350 (MIRALAX) 17 Gm Powd.pack, 1 PKT PO PRN Q12HRS PRN for CONSTIPATION, PKT 04/14/20 Nystatin (NYSTATIN) 15 Gm Cream..g., 1 RASHAD TP BID PRN for redness/gaulding r/t candidias, #30 GM 04/14/20 Ipratropium/Albuterol Sulfate (DUONEB 0.5-3(2.5) MG/3 ML) 3 Ml Ampul.neb, 3 ML NEB Q6HRS PRN for low oxygen saturation, EACH 04/14/20 Paliperidone Palmitate (INVEGA SUSTENNA) 234 Mg/1.5 Ml Disp.syrin, 234 MG IM [id number] for scizoaffective disorder, DIS.SYR 04/14/20 Furosemide (FUROSEMIDE) 20 Mg Tablet, 3 TAB PO DAILY for heart failure, #90 TAB 3 Refills 04/14/20 [cholecalciferol ] No Conflict Check, 2000 UNITS PO DAILY for vitamin D deficiency 04/14/20 Olanzapine (OLANZAPINE) 10 Mg Tablet, 1 TAB PO QHS for SCHIZOAFFECTIVE DISORDER, #30 TAB 04/13/20 Magnesium Hydroxide (MILK OF MAGNESIA) 400 Mg/5 Ml Oral.susp, 400 MG PO PRN Q24HRS PRN for VOMITING, MISC 04/13/20 Metolazone (METOLAZONE) 2.5 Mg Tablet, 2.5 MG PO DAILY for COPD, #30 TAB 0 Refills 04/13/20 Levothyroxine Sodium (LEVOTHYROXINE SODIUM) 100 Mcg Tablet, 1 TAB PO DAILY for HYPOTHYROIDISM, #30 TAB 5 Refills 04/13/20 Ibuprofen (Ibu) 400 Mg Tablet, 1 TAB PO Q6HRS for PAIN for 5 Days, #20 TAB 0 Refills NEEDED FOR PAIN 04/13/20 Divalproex Sodium (DIVALPROEX SODIUM) 500 Mg Tablet.dr, 2 TAB PO HS for SCHIZOAFFECTIVE DISORDER, #60 TAB 1 Refill 04/13/20 Docusate Sodium (DOCUSATE SODIUM) 100 Mg Capsule, 1 CAP PO HS for constipation for 7 Days, #7 CAP 0 Refills 04/13/20 [place] Tar (COAL TAR) 100 Gm Tar, 100 GM MC MON TUE SAT for Seborrhea Capitis, MISC 04/13/20 CATHIE LI MD Aug 24, 2021 11:28
--- NOTE | 2021-08-24 11:30 | PDOC3 ---
[facility]-Discharge Summary Date of Admission: Date of Admission: Aug 19, 2021 Date of Discharge: Date of Discharge: Aug 24, 2021 Admission Diagnosis: Admitting Diagnosis: Flu A, Resp Fail Discharge Diagnosis: Discharge Diagnosis: Same Consults: Consults: Pulm, GABBY Hospital Course: Hospital Course: Chief Complaint Assessment/Plan Staph hemolyticus and epidermidis bacteremia Acute hypercapnic and hypoxic respiratory failure Influenza a pneumonia TEODORO due to vasomotor nephropathy History of CHF, unknown EF History of COPD History of hypothyroidism History of schizophrenia Pending sensitivities for staph infection ID consult for antibiotic management Continue empiric IV antibiotics Continue Tamiflu BiPAP as needed Strict I's/O Avoid nephrotoxic agents Judicious fluid replacement Pending TTE Pulmonology consulted for COPD and O2 management Lovenox for DVT prophylaxis Protonix GI prophylaxis ADA diet CODE STATUS full Discussed with RN and SW Disposition inpatient management as above DPOA: Undesignated History of Present Illness History of Present Illness 66-year-old male with multiple comorbidities including CHF and COPD and schizoaffective disorder who comes from group home with with altered mental status and increased O2 requirements. He is at his baseline at 3 L nasal c annula but required 5 L. He also endorses upper respiratory symptoms, rhinorrhea, shortness of breath for the last 3 days. Patient was tachypneic in the ED. Denies any fevers, chest pain or abdominal pain or dysuria at the time. Evaluated this morning patient was lethargic and not responding to me. ABG was drawn showing CO2 level 62. 08/20/2021 No acute events overnight. Patient seen examined bedside. Tolerating well on 95% 5 L nasal cannula. Blood cultures are positive for staph 3 out of 3 sets. We will continue with IV vancomycin. Patient is more alert and awake today. Patient's chart, labs, images were reviewed and discussed with RN 08/21/2021 No acute events overnight. Patient seen examined bedside. Patient still improving. Pending blood culture sensitivities and speciation. Continue empiric IV antibiotics. Patient's chart, labs, images were reviewed and discussed with RN 08/24 Patient evaluated examined at bedside. Patient oral to biotics. Okay to discharge back to [facility] today. Greater than 30 minutes spent on this discharge. Disposition: Disposition/Orders: D/C to Another Facility Activity: Activity: Resume previous activity Diet: Diet: Cardiac Medications: Home Meds Active Scripts [Clotrimazole 1% Topical] 1 RASHAD RASHAD No Conflict Check, 1 RASHAD TP BID for fungal foot infection for 14 Days, #1 BOTTLE Prov:FANNIE HUTCHISON MD 08/23/21 Amoxicillin/Potassium Clav (AUGMENTIN 500-125 TABLET) 1 Each Tablet, 1 TAB PO BID for Staph bacteremia for 5 Days, #10 TAB 0 Refills Prov:FANNIE HUTCHISON MD 08/23/21 Reported Medications Fluoxetine Hcl (PROZAC) 40 Mg Capsule, 1 CAP PO DAILY for , #30 CAP 3 Refills 08/19/21 Lidocaine (Aspercreme) 1 Each Adh..patch, 1 EACH TP PRN Q6HRS PRN for PAIN, PATCH 08/19/21 Potassium Chloride (KLOR-CON M20) 20 Meq Tab.er.prt, 40 MEQ PO TID for hypo kalemia, TAB.SR 04/14/20 Polyethylene Glycol 3350 (MIRALAX) 17 Gm Powd.pack, 1 PACKET PO DAILY PRN for CONSTIPATION, #30 PACKET 0 Refills dissolve in water 04/14/20 Polyethylene Glycol 3350 (MIRALAX) 17 Gm Powd.pack, 1 PKT PO PRN Q12HRS PRN for CONSTIPATION, PKT 04/14/20 Nystatin (NYSTATIN) 15 Gm Cream..g., 1 RASHAD TP BID PRN for redness/gaulding r/t candidias, #30 GM 04/14/20 Ipratropium/Albuterol Sulfate (DUONEB 0.5-3(2.5) MG/3 ML) 3 Ml Ampul.neb, 3 ML NEB Q6HRS PRN for low oxygen saturation, EACH 04/14/20 Paliperidone Palmitate (INVEGA SUSTENNA) 234 Mg/1.5 Ml Disp.syrin, 234 MG IM [id number] for scizoaffective disorder, DIS.SYR 04/14/20 Furosemide (FUROSEMIDE) 20 Mg Tablet, 3 TAB PO DAILY for heart failure, #90 TAB 3 Refills 04/14/20 [cholecalciferol ] No Conflict Check, 2000 UNITS PO DAILY for vitamin D deficiency 04/14/20 Olanzapine (OLANZAPINE) 10 Mg Tablet, 1 TAB PO QHS for SCHIZOAFFECTIVE DISORDER, #30 TAB 04/13/20 Magnesium Hydroxide (MILK OF MAGNESIA) 400 Mg/5 Ml Oral.susp, 400 MG PO PRN Q24HRS PRN for VOMITING, MISC 04/13/20 Metolazone (METOLAZONE) 2.5 Mg Tablet, 2.5 MG PO DAILY for COPD, #30 TAB 0 Refills 04/13/20 Levothyroxine Sodium (LEVOTHYROXINE SODIUM) 100 Mcg Tablet, 1 TAB PO DAILY for HYPOTHYROIDISM, #30 TAB 5 Refills 04/13/20 Ibuprofen (Ibu) 400 Mg Tablet, 1 TAB PO Q6HRS for PAIN for 5 Days, #20 TAB 0 Refills NEEDED FOR PAIN 04/13/20 Divalproex Sodium (DIVALPROEX SODIUM) 500 Mg Tablet.dr, 2 TAB PO HS for SCHIZOAFFECTIVE DISORDER, #60 TAB 1 Refill 04/13/20 Docusate Sodium (DOCUSATE SODIUM) 100 Mg Capsule, 1 CAP PO HS for constipation for 7 Days, #7 CAP 0 Refills 04/13/20 Whitman Tar (COAL TAR) 100 Gm Tar, 100 GM MC MON WED SAT for Seborrhea Capitis, MISC 04/13/20 Scheduled Amoxicillin/Potassium Clav (Augmentin 500-125 Tablet), 1 TAB PO BID Whitman Tar (Whitman Tar), 100 GM MC MON WED SAT, (Reported) Divalproex Sodium (Divalproex Sodium), 2 TAB PO HS, (Reported) Docusate Sodium (Docusate Sodium), 1 CAP PO HS, (Reported) Fluoxetine Hcl (Prozac), 1 CAP PO DAILY, (Reported) Furosemide (Furosemide), 3 TAB PO DAILY, (Reported) Ibuprofen (Ibu), 1 TAB PO Q6HRS, (Reported) Levothyroxine Sodium (Levothyroxine Sodium), 1 TAB PO DAILY, (Reported) Metolazone (Metolazone), 2.5 MG PO DAILY, (Reported) Olanzapine (Olanzapine), 1 TAB PO QHS, (Reported) Paliperidone Palmitate (Invega Sustenna), 234 MG IM [id number], (Reported) Potassium Chloride (Klor-Con M20), 40 MEQ PO TID, (Reported) [Clotrimazole 1% Topical], 1 RASHAD TP BID [cholecalciferol ], 2,000 UNITS PO DAILY, (Reported) Scheduled PRN Ipratropium/Albuterol Sulfate (Duoneb 0.5-3(2.5) Mg/3 Ml), 3 ML NEB Q6HRS PRN for low oxygen saturation, (Reported) Lidocaine (Aspercreme), 1 EACH TP PRN Q6HRS PRN for PAIN, (Reported) Magnesium Hydroxide (Milk Of Magnesia), 400 MG PO PRN Q24HRS PRN for VOMITING, (Reported) Nystatin (Nystatin), 1 RASHAD TP BID PRN for redness/gaulding r/t candidias, (Reported) Polyethylene Glycol 3350 (Miralax), 1 PKT PO PRN Q12HRS PRN for CONSTIPATION, (Reported) Polyethylene Glycol 3350 (Miralax), 1 PACKET PO DAILY PRN for CONSTIPATION, (Reported) Justicifation of Admission Dx: Justifications for Admission: Justification of Admission Dx: Yes Sepsis: End-Organ Dysfunction CATHIE LI MD Aug 24, 2021 11:30
--- NOTE | 2021-08-24 11:32 | PDOC ---
PULMONARY PROGRESS NOTES DATE: 08/24/21 TIME: 11:31 Subjective Patient awake and following commands. Vitals Vital Signs Date Time Temp Pulse Resp B/P (MAP) Pulse Ox O2 Delivery O2 Flow Rate FiO2 08/24/21 07:00 97.4 62 20 91/54 (66) 94 Nasal Cannula 5.0 97.4 General: Alert, No acute distress Lungs: Clear Cardiovascular: S1, S2 Abdomen: Soft, Non-tender Neuro Exam: Alert Extremities: No Edema Medications Active Scripts Medications Dose Route/Sig Max Daily Dose Days Date Category Dose Instructions Prozac (Fluoxetine Hcl) 40 Mg Capsule 1 Cap PO DAILY 08/19/21 Reported Aspercreme (Lidocaine) 1 Each Adh..patch 1 Each TP PRN Q6HRS PRN 08/19/21 Reported Klor-Con M20 (Potassium Chloride) 20 Meq Tab.er.prt 40 Meq PO TID 04/14/20 Reported Miralax (Polyethylene Glycol 3350) 17 Gm Powd.pack 1 Packet PO DAILY PRN 04/14/20 Reported dissolve in water Miralax (Polyethylene Glycol 3350) 17 Gm Powd.pack 1 Pkt PO PRN Q12HRS PRN 04/14/20 Reported Nystatin 15 Gm Cream..g. 1 Elliott TP BID PRN 04/14/20 Reported Duoneb 0.5-3(2.5) Mg/3 Ml (Albuterol/Ipratropium) 3 Ml Ampul.neb 3 Ml NEB Q6HRS PRN 04/14/20 Reported Invega Sustenna (Paliperidone Palmitate) 234 Mg/1.5 Ml Disp.syrin 234 Mg IM [id number] 04/14/20 Reported Furosemide 20 Mg Tablet 3 Tab PO DAILY 04/14/20 Reported [cholecalciferol ] 2,000 Units PO DAILY 04/14/20 Reported Olanzapine 10 Mg Tablet 1 Tab PO QHS 04/13/20 Reported Milk Of Magnesia (Magnesium Hydroxide) 400 Mg/5 Ml Oral.susp 400 Mg PO PRN Q24HRS PRN 04/13/20 Reported Metolazone 2.5 Mg Tablet 2.5 Mg PO DAILY 04/13/20 Reported Levothyroxine Sodium 100 Mcg Tablet 1 Tab PO DAILY 04/13/20 Reported Ibu (Ibuprofen) 400 Mg Tablet 1 Tab PO Q6HRS 5 04/13/20 Reported NEEDED FOR PAIN Divalproex Sodium 500 Mg Tablet. 2 Tab PO HS 04/13/20 Reported Docusate Sodium 100 Mg Capsule 1 Cap PO HS 7 04/13/20 Reported Dickenson Tar 100 Gm Tar 100 Gm MC MON WED SAT 04/13/20 Reported Impression . 1. Acute hypoxic and acute on chronic hypercapnic respiratory failure secondary to underlying influenza pneumonia. 2. Encephalopathy related to influenza pneumonia. Now much improved.. 3. Abnormal chest x-ray with bilateral infiltrates consistent with influenza pneumonia. 4. Blood culture evidence Staph haemolyticus. This is likely contaminant. Infectious disease are following Plan . 1. Clinically much improved. Off the BiPAP. Following commands. 2. Status post 5 days of Tamiflu. 3. Continue empiric antibiotics to cover for superimposed bacterial pneumonia. Now switched to oral Augmentin. 4. Monitor white cell counts closely. 5. Continue supportive care. 6. We will follow along with you. 7. Discharge plans per PCP MELISSA FARAH MD Aug 24, 2021 11:32
--- NOTE | 2021-08-24 13:36 | NUR ---
SS following up with discharge planning. SS reviewed pt chart and discussed with pt RN. Pt is currently requiring oxygen at five liters nasal canula. Pt is LTC resident from [facility], ; fax [phone]. COVID19 negative. Discharge orders received and sent to [facility]. Pt will discharge today and return to [facility]. Facility to provide transportation. Packet placed on chart. Pt and pt's RN notified.
--- NOTE | 2021-08-24 14:03 | PDOC ---
Infectious Disease Note Subjective: Subjective Patient is feeling good appears to be back to his baseline Vital Signs: Vital Signs Vital Signs Date Time Temp Pulse Resp B/P (MAP) Pulse Ox O2 Delivery O2 Flow Rate FiO2 08/24/21 11:00 97.8 78 18 132/77 (95) 95 Nasal Cannula 4.0 97.8 Physical Exam: PHYSICAL EXAM GENERAL: Alert, oriented gentleman who is not in any distress. VITAL SIGNS: Stable HEENT: Both pupils are round and reacting. No conjunctival lesion, no lesion in the mouth. NECK: Supple, no JVP, no lymphadenopathy. LUNGS: Clear. HEART: S1, S2, regular. ABDOMEN: Benign, soft, nontender, no organomegaly. EXTREMITIES: No edema or cyanosis. SKIN: Unremarkable. Edema actually has improved with the support stockings are in place. NEUROLOGIC: The patient is able to communicate, but very cherry, sometimes is agitated, sometimes is nice according to RN. Medications: Inpatient Meds: Medications reviewed. Objective: Assessment: 1. Blood culture positive with 3 different species, 2 different days. Likely contaminant. 2. Influenza A positive. 3. Pulmonary infiltrate, probably combination of congestive heart failure and possible secondary infection. 4. Schizoaffective disorder. 5. Congestive heart failure. 6. Chronic obstructive pulmonary disease. 7. Hypothyroidism. Plan: Plan of Care Patient is ready for discharge today Augmentin for discharge for 5 days completed tamiflu Discussed with NILSA MUNIZ MD Aug 24, 2021 14:03
[2021-08-24 15:00] VITALS: BP 126/88
[2021-08-24] MEDS ORDERED: AMOXICILLIN/K CLAV 875/125MG TABLET. PO SCH (21:00)
== END 2021-08-24 19:00 | DRG 193 ==
LOC: ER 23:31 → 6 SOUTH 08-19 02:15
PROVIDERS: ADMIT Internal Medicine; ATTEND Internal Medicine
PROC: 5A09357 Assistance with Respiratory Ventilation, Less than 24 Consecutive Hours, Continuous Positive Airway Pressure (ICD-10-PCS; principal; 2021-08-19)
DX: J10.00 Influenza due to other identified influenza virus with unspecified type of pneumonia (principal); J96.21 Acute and chronic respiratory failure with hypoxia; J96.22 Acute and chronic respiratory failure with hypercapnia; N17.0 Acute kidney failure with tubular necrosis; J44.0 Chronic obstructive pulmonary disease with (acute) lower respiratory infection; J98.11 Atelectasis; R78.81 Bacteremia; B95.8 Unspecified staphylococcus as the cause of diseases classified elsewhere; E03.9 Hypothyroidism, unspecified; F25.9 Schizoaffective disorder, unspecified; I50.9 Heart failure, unspecified; J10.1 Influenza due to other identified influenza virus with other respiratory manifestations; J10.81 Influenza due to other identified influenza virus with encephalopathy; F32.A Depression, unspecified; Z20.822 Contact with and (suspected) exposure to COVID-19
CPT/HCPCS: 36415; 36600; 71045; 80048; 80053; 80202; 81001; 82805; 83605; 83735; 83880; 84100; 84145; 84443; 84484; 85025; 87040; 87077; 87428; 93005; 93308; 94660; 94760; 96365; 96375; J0456; J0696; J1650; J2543; J3370; J3475; J7030; J7040; J7050; J7060; U0003; 99285-25; G0378